=== PATIENT | male | born 1940 | race Caucasian/White ===

== ENCOUNTER → 2021-11-24 13:16 | Outpatient (BNVA) | payer MEDICARE, SELFPAY | PROVIDERS: PCP Internal Medicine; Visit Provider Physician Assistant | DX: R19.5 Other fecal abnormalities (principal); Z79.01 Long term (current) use of anticoagulants | CPT/HCPCS: 99202 ==

== ENCOUNTER 2022-01-06 07:28 | Day surgery (SDC) | payer OTHER, SELFPAY ==
[2022-01-01 10:18] VITALS: BMI 28.1
--- NOTE | 2022-01-01 13:38 | P.CONAN_ITS ---
Documented by User: Domi العراقي NP 01/05/22 11:55 HPI - Anesthesia Eval Consult details Narrative: 81yo M for Colonoscopy Routine cardiology f/u 10/2021 with increase to BP meds PMFSH Active Problems Active Problems: All Active Problems (Updated 01/01/22 @ 10:12 by Briana Thao RN) Heme positive stool (Acute) Anticoagulant long-term use (Acute) HTN (hypertension) (Acute) Past Medical History Medical History (Updated 01/01/22 @ 10:12 by Briana Thao RN) Aortic stenosis BPH (benign prostatic hyperplasia) CAD (coronary artery disease) Chronic renal insufficiency Elevated cholesterol Gout History of cardioversion HTN (hypertension) PAF (paroxysmal atrial fibrillation) Surgical History Surgical History (Updated 01/01/22 @ 10:12 by Briana Thao RN) History of open heart surgery Hx of aortic valve replacement Hx of CABG Hx of cataract extraction Hx of colonoscopy Hx of elbow surgery Social History Social History (Updated 11/24/21 @ 13:56 by Dina Gray PA-C) Household Members: Spouse Household Members Other:: - healthy Alcohol intake: current Alcohol intake frequency: a few times a month Patient Tobacco Use Status: Former Tobacco user Tobacco use type: Cigarette Advance Directives Date on File: 04/18/19 Meds Allergies Allergy/AdvReac Type Severity Reaction Status Date / Time No Known Allergies Allergy Verified 11/24/21 13:23 Home Medications Medication Instructions Recorded Confirmed Last Taken Type allopurinol 300 mg tablet 300 mg PO DAILY 11/24/21 01/01/22 Unknown History amlodipine 5 mg tablet 5 mg PO BID 11/24/21 01/01/22 Unknown History apixaban 5 mg tablet (Eliquis) 5 mg PO BID 11/24/21 01/01/22 Unknown History aspirin 81 mg chewable tablet 81 mg PO DAILY 11/24/21 01/06/22 01/03/22 History fenofibrate nanocrystallized 145 145 mg PO DAILY 11/24/21 01/01/22 Unknown Hist ory mg tablet finasteride 5 mg tablet 5 mg PO DAILY 11/24/21 01/01/22 Unknown History losartan 100 mg tablet 100 mg PO DAILY 11/24/21 01/01/22 Unknown History metoprolol succinate 50 mg 50 mg PO BID 11/24/21 01/06/22 01/06/22 History tablet,extended release 24 hr simvastatin 20 mg tablet 20 mg PO DAILY 11/24/21 01/01/22 Unknown History tamsulosin 0.4 mg capsule 0.4 mg PO DAILY 11/24/21 01/01/22 Unknown History furosemide 20 mg tablet 20 mg PO DAILY 01/01/22 01/01/22 Unknown History Exam Exam Date and Time: January 01, 2022 1338 Height,Weight and Vital Signs: Height 5 ft 11 in Weight 91.626 kg Narrative Narrative: EKG 04/2021 NSR with SA RBBB Septal infarct ECHO 07/2020 Nml LV chamber size. Mild conc LV hypertrophy. Nml regional WMA. Nml LV sys function. LV EF 55-60%. Indeterminte LV diastolic function. Nml RV size. Low normal RV global systolic function. PASP not elevated Mildly dilated LA Bioprosthetic aortic valve is well seated and functioning normally. Assessment and Plan Assessment Anesthesia Assessment: Chart Reviewed Documented by User: Jude Charles MD 01/06/22 10:22 HPI - Anesthesia Eval Consult details Narrative: 81yo M for Colonoscopy Routine cardiology f/u 10/2021 with increase to BP meds anticoagulation stopped 2 days ago , cardiology on board . [facility] Past Medical History Medical History (Updated 01/01/22 @ 10:12 by Briana Thao RN) Aortic stenosis BPH (benign prostatic hyperplasia) CAD (coronary artery disease) Chronic renal insufficiency Elevated cholesterol Gout History of cardioversion HTN (hypertension) PAF (paroxysmal atrial fibrillation) Functional capacity: independent ambulation Family History Family history of problems with anesthesia: No Surgical History Surgical History (Updated 01/01/22 @ 10:12 by Briana Thao RN) History of open heart surgery Hx of aortic valve replacement Hx of CABG Hx of cataract extraction Hx of colonoscopy Hx of elbow surgery History of Problems with Anesthesia: No Social History Social History (Updated 11/24/21 @ 13:56 by Dina Gray PA-C) Household Members: Spouse Household Members Other:: - healthy Alcohol intake: current Alcohol intake frequency: a few times a month Patient Tobacco Use Status: Former Tobacco user Tobacco use type: Cigarette Advance Directives Date on File: 04/18/19 Meds Allergies Allergy/AdvReac Type Severity Reaction Status Date / Time No Known Allergies Allergy Verified 11/24/21 13:23 Home Medications Medication Instructions Recorded Confirmed Last Taken Type allopurinol 300 mg tablet 300 mg PO DAILY 11/24/21 01/01/22 Unknown History amlodipine 5 mg tablet 5 mg PO BID 11/24/21 01/01/22 Unknown History apixaban 5 mg tablet (Eliquis) 5 mg PO BID 11/24/21 01/01/22 Unknown History aspirin 81 mg chewable tablet 81 mg PO DAILY 11/24/21 01/06/22 01/03/22 History fenofibrate nanocrystallized 145 145 mg PO DAILY 11/24/21 01/01/22 Unknown History mg tablet finasteride 5 mg tablet 5 mg PO DAILY 11/24/21 01/01/22 Unknown History losartan 100 mg tablet 100 mg PO DAILY 11/24/21 01/01/22 Unknown History metoprolol succinate 50 mg 50 mg PO BID 11/24/21 01/06/22 01/06/22 History tablet,extended release 24 hr simvastatin 20 mg tablet 20 mg PO DAILY 11/24/21 01/01/22 Unknown History tamsulosin 0.4 mg capsule 0.4 mg PO DAILY 11/24/21 01/01/22 Unknown History furosemide 20 mg tablet 20 mg PO DAILY 01/01/22 01/01/22 Unknown History Exam Airway Mallampati Class: III TM Dist: >3cm Neck ROM: Full Loose/Missing/Broken Teeth: Yes Heart: S1, S2 Lungs: b/l breath sounds Assessment and Plan Assessment Anesthesia Assessment: Anesthesia Plan Discussed Final Anesthetic Review Family History of Problems with Anesthesia: No History of Problems with Anesthesia: No NPO: Yes ASA Class: III Final Preanesthetic Review: Meds/Allgs Chart Reviewed, Consent Obtained/Reviewed and Anes Risks/Benef Reviewed Patient Risk: High Procedure Risk: Intermediate Anesthetic Plan Anesthetic Plan: MAC: Disposition: Standard PACU
--- NOTE | 2022-01-06 07:04 | MHC.SHP ---
Pre-Procedural Eval Section A Date of Service: 01/06/22 Section B Chief Complaint: Other fecal abnormalities Details of Present Illness: pos stool occult test, father with CRC? Relevant Family History (Specify if Yes): Yes Relevant Social History: None Present Medications: see Short Stay Collaborative assessment Medical History: Significant History (Aortic stenosis BPH (benign prostatic hyperplasia) CAD (coronary artery disease) Chronic renal insufficiency Elevated cholesterol Gout History of cardioversion HTN (hypertension) PAF (paroxysmal atrial fibrillation)) History of Previous Operations: Relevant previous surgery/procedure and date(s) (History of open heart surgery Hx of aortic valve replacement Hx of CABG Hx of cataract extraction Hx of colonoscopy Hx of elbow surgery) Allergies: Allergies Allergy/AdvReac Type Severity Reaction Status Date / Time No Known Allergies Allergy Verified 11/24/21 13:23 Review of Systems Sugical H&P ROS: Negative: Constitution, Cardiovascular, Respiratory, Neurological, Psychiatric, Hem-Onc, Allergic/Immunologic, Gastrointestinal, Genitourinary, Musculoskeletal, Integumentary, Endocrine and Eyes/Ears/Nose/Throat Exam Surgical H&P Exam: Normal: HEENT, Normal: Heart, Normal: Lungs, Normal: Extremities, Normal: Abdomen, Normal: Skin and Normal: Neurological Plan Diagnosis/Plan: Unchanged I have reviewed the history and physical and performed a pertinent physical examination on my patient. No changes have occurred unless specified.
[2022-01-06 07:48] VITALS: BP 162/82; PULSE 81; RESP 18; TEMP 36.1; O2SAT 98
[2022-01-06] MEDS: Lactated Ringers 1,000 ML 100 ML IVCONT (08:05)
--- NOTE | 2022-01-06 08:26 | MHC.SHP ---
Pre-Procedural Eval Section A Date of Service: 01/06/22 Section B Chief Complaint: Other fecal abnormalities Allergies: Allergies Allergy/AdvReac Type Severity Reaction Status Date / Time No Known Allergies Allergy Verified 11/24/21 13:23 Plan I have reviewed the history and physical and performed a pertinent physical examination on my patient. No changes have occurred unless specified.
--- NOTE | 2022-01-06 08:27 | P.OP_ITS ---
Operative Note Operative Note Date of Service: 01/06/22 Narrative: Operative Information Procedure Description: Colonoscopy Indication: pos stool occult test Anesthesia: MAC COLONOSCOPY Instrument: Olympus variable stiffness pediatric scope 190L Colonoscopy Monitoring: Vital signs and clinical assessment, continuous EKG monitoring, Pulse oximetry, Carbon Dioxide monitoring and blood pressure monitoring were done throughout the procedure. Colon withdrawal time was 11 minutes. Procedure: The patient was placed in the left lateral decubitis position and pre-procedure medications were administered. After a digital rectal examination of the ano-rectum, the video colonoscope was inserted into the rectum and advanced through the colon to the cecum/TI. The colonoscope was slowly withdrawn in a retrograde panoramic fashion and the colon mucosa was carefully examined including a retroflexed view of the rectum. Findings and interventions are described below. Procedure Difficulty: easy Findings: Terminal Ileum-normal Cecum:normal right sided retroflexion --normal Ascending Colon: normal Transverse Colon - 5-6 mm sessile polyp removed with cold forceps Descending Colon:normal Sigmoid Colon: many large mouthed tics noted, consistent with severe diverticulosis with narrowing of lumen and hypertrophic folds. 10-12 mm sessile polyp removed with cold snare Rectum: Retroflexion with small internal hemorrhoids, grade I Anorectum - normal Colon preparation: [place] Bowel Preparation Scale Right colon; 2 Transverse colon: 2 Left colon; 2 (0 = Unprepared colon segment with mucosa not seen due to solid stool that cannot be cleared. 1 = Portion of mucosa of the colon segment seen, but other areas of the colon segment not well seen due to staining, residual stool and/or opaque liquid. 2 = Minor amount of residual staining, small fragments of stool and/or opaque liquid, but mucosa of colon segment seen well. 3 = Entire mucosa of colon segment seen well with no residual staining, small fragments of stool or opaque liquid) Impression and Post Procedure Diagnosis: polyps internal hemorrhoids diverticular disease Plan: High fiber diet leaflet Avoid straining at stool, epsom salts and sitz bath, anusol supps or cream Repeat Colonoscopy in 3-5 years if health allows or earlier if clinically indicated can restart anticoagulation tomorrow evening Above findings were reviewed with the patient and relevant handouts were provided if indicated.
--- NOTE | 2022-01-06 08:27 | PM.OP ---
Brief Operative Note Date of Service: 01/06/22 Pre-op diagnosis: pos stool occult test Post-op diagnosis: same Procedure: see op note Surgeon: Consuelo De Leon MD Anesthesia: MAC Was an Grounds Maintenance Supervisor used for this Procedure?: No Estimated blood loss (mL): 0 Condition: stable Disposition: PACU
[2022-01-06 09:02] VITALS: BP 106/60; PULSE 65; RESP 16; TEMP 36.1; O2SAT 97
[2022-01-06 09:17] VITALS: BP 126/75; PULSE 71; RESP 16; O2SAT 96
== END 2022-01-06 09:55 | disposition home or self-care (01) ==
PROVIDERS: PCP Internal Medicine; Visit Provider Internal Medicine Gastroenterology
PROC: 0DJD8ZZ Inspection of Lower Intestinal Tract, Via Natural or Artificial Opening Endoscopic (ICD-10-PCS; CPT 45378; principal; 2022-01-06 08:30)
DX: R19.5 Other fecal abnormalities (principal); D12.3 Benign neoplasm of transverse colon; D12.5 Benign neoplasm of sigmoid colon; K57.30 Diverticulosis of large intestine without perforation or abscess without bleeding; K64.0 First degree hemorrhoids; E78.00 Pure hypercholesterolemia, unspecified; M10.9 Gout, unspecified; I25.10 Atherosclerotic heart disease of native coronary artery without angina pectoris; Z95.1 Presence of aortocoronary bypass graft; Z95.2 Presence of prosthetic heart valve; I12.9 Hypertensive chronic kidney disease with stage 1 through stage 4 chronic kidney disease, or unspecified chronic kidney disease; N18.9 Chronic kidney disease, unspecified; I48.0 Paroxysmal atrial fibrillation; Z79.01 Long term (current) use of anticoagulants; Z79.82 Long term (current) use of aspirin; Z79.899 Other long term (current) drug therapy; Z87.891 Personal history of nicotine dependence; Z98.890 Other specified postprocedural states
CPT/HCPCS: 45385; 45380; 88305

== ENCOUNTER → 2022-01-19 11:28 | Outpatient (BNVA) | payer OTHER, SELFPAY | PROVIDERS: PCP Internal Medicine; Referring Provider Internal Medicine; Visit Provider Physician Assistant | DX: Z13.89 Encounter for screening for other disorder (principal) ==

== ENCOUNTER 2022-06-11 10:36 | Outpatient (REF) | payer MEDICARE, SELFPAY ==
--- NOTE | ~2022-06-11 | XR_ITS ---
EXAMINATION: XR CERVICAL SPINE XR LUMBAR SPINE CLINICAL INFORMATION: Neck pain. COMPARISON: None. TECHNIQUE: 3 views lumbar spine. 3 views cervical spine. FINDINGS: Cervical Spine: There is maintained cervical lordosis. The vertebral heights, alignment and disc heights are maintained normal. There is mild ventral spondylosis C4-C5, C5-C6 and C6-C7 disc levels. No visible acute fracture, dislocation or subluxation seen. There is bilateral C4-C5 facet joint arthropathy and hypertrophy. No visible acute fracture, dislocation or subluxation seen. The craniovertebral junction at the C2-C3 disc level appears unremarkable. Lumbar Spine: Abnormal segmentation of lumbar spine seen with sacralization of L5 vertebra and rudimentary disc at L5-S1 disc level. There is normal lumbar lordosis. The vertebral heights and alignment is normal. There is mild loss of L5-S1, L4-L5 and L1-L2 disc heights with ventral spondylosis seen throughout lumbar spine. No aggressive lytic or sclerotic process seen. No compression fracture. Paravertebral soft tissues are normal. SI joints are symmetrical and normal. XR/XR lumbar spine 4V min IMPRESSION: Degenerative disc changes L2-L3, L4-L5 and L5-S1 disc levels. There is bilateral L5-S1 and L4-L5 facet joint arthropathy. There is mild narrowing of L5-S1 disc height. Mild ventral spondylosis C3-C4 through C6-C7 disc levels. No visible acute fracture or dislocation seen.
--- NOTE | ~2022-06-11 | XR_ITS ---
EXAMINATION: XR CERVICAL SPINE XR LUMBAR SPINE CLINICAL INFORMATION: Neck pain. COMPARISON: None. TECHNIQUE: 3 views lumbar spine. 3 views cervical spine. FINDINGS: Cervical Spine: There is maintained cervical lordosis. The vertebral heights, alignment and disc heights are maintained normal. There is mild ventral spondylosis C4-C5, C5-C6 and C6-C7 disc levels. No visible acute fracture, dislocation or subluxation seen. There is bilateral C4-C5 facet joint arthropathy and hypertrophy. No visible acute fracture, dislocation or subluxation seen. The craniovertebral junction at the C2-C3 disc level appears unremarkable. Lumbar Spine: Abnormal segmentation of lumbar spine seen with sacralization of L5 vertebra and rudimentary disc at L5-S1 disc level. There is normal lumbar lordosis. The vertebral heights and alignment is normal. There is mild loss of L5-S1, L4-L5 and L1-L2 disc heights with ventral spondylosis seen throughout lumbar spine. No aggressive lytic or sclerotic process seen. No compression fracture. Paravertebral soft tissues are normal. SI joints are symmetrical and normal. XR/XR cervical spine 3V IMPRESSION: Degenerative disc changes L2-L3, L4-L5 and L5-S1 disc levels. There is bilateral L5-S1 and L4-L5 facet joint arthropathy. There is mild narrowing of L5-S1 disc height. Mild ventral spondylosis C3-C4 through C6-C7 disc levels. No visible acute fracture or dislocation seen.
== END 2022-06-11 10:37 | disposition home or self-care (01) ==
LOC: HO.HMGCX 10:36
PROVIDERS: PCP Internal Medicine; Visit Provider Internal Medicine
DX: M54.2 Cervicalgia (principal); M54.50 Low back pain, unspecified
CPT/HCPCS: 72040; 72110

== ENCOUNTER 2024-06-27 14:27 | Outpatient (REF) | payer MEDICARE, SELFPAY ==
--- NOTE | ~2024-06-27 | XR_ITS ---
EXAMINATION: XR HIP, LEFT CLINICAL INFORMATION: LEFT HIP PAIN COMPARISON: CT abdomen and pelvis April 18, 2019 TECHNIQUE: Two views of the left hip. FINDINGS: No fracture. No dislocation. Mild to moderate degenerative joint narrowing and small marginal bone spurs of the superolateral acetabular rim. There is bony ankylosis of the symphysis pubis . No significant change since CAT scan April 18, 2019. XR/XR hip LT min 2V IMPRESSION: 1. No acute abnormality. 2. 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 3. Bony ankylosis of the symphysis pubis. Electronically signed by: Deon Forbes MD 07/26/2024 04:10 PM EST
== END 2024-06-27 14:28 | disposition home or self-care (01) ==
LOC: HO.HMGCX 14:27
PROVIDERS: PCP Internal Medicine; Visit Provider Internal Medicine
DX: M25.552 Pain in left hip (principal)
CPT/HCPCS: 73502

== ENCOUNTER 2024-08-20 12:09 | Outpatient (REF) | payer MEDICARE, SELFPAY ==
--- NOTE | ~2024-08-20 | MR_ITS ---
EXAMINATION: MR HIP WITHOUT CONTRAST, LEFT CLINICAL INFORMATION: Pain, rule out fracture, DJD. Pain in low back/buttock, down to left leg for months. COMPARISON: XR left hip 06/27/2024. TECHNIQUE: MRI of the left hip was obtained using routine sequences on a high-field magnet. FINDINGS: Mild-moderate bilateral hip osteoarthritis. 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 There is a small left hip joint effusion. Small marginal osteophytes along the acetabular rim. Much of the labrum is degenerated and attenuated. No acute fracture, stress reaction, or evidence of active osteonecrosis. No suspicious bone lesion. The pubic symphysis is fused. No acute muscle strain or tear. Trace trochanteric bursitis. The urinary bladder is thick-walled and trabeculated and there is an enlarged prostate suggesting chronic bladder outlet obstruction. There is mild edema surrounding the urinary bladder suggesting cystitis. Correlate clinically and/or with urinalysis. MR/MR hip LT wo con IMPRESSION: Mild-moderate bilateral hip osteoarthritis. Subtle flattening along the articular surface of the superomedial left femoral head which may be due to a remote/healed injury/AVN. No acute osseous abnormality. Enlarged prostate. Findings suggestive of chronic bladder outlet obstruction and possible active cystitis. Electronically signed by: Salvador Villafuerte MD 08/24/2024 03:23 PM EDI ROWLEY
--- OUTSIDE RECORDS SUMMARY | 2024-08-20 12:11 | XMS_ITS | Continuity of Care Document ---
Author Name [facility] Organization [facility] Care Team Providers Care Alberene Stone Setter Name Role Phone [facility] Unavailable Unavailable Problems Combined list of problems from Department of Defense and Veterans Affairs facilities. It does not include entries that were removed or entered in error. Problem Status Onset Date Problem Type Date of Resolution Comments Source H/O: Bilateral cataract extraction Active 09/06/19 12 Condition [facility] Aortic stenosis Active Condition Sep 15, 2018 Entered By: Alexandra MARIE Comment: 09/14/18 moderate to severe aortic valve stenosis mean systolic gradiant 35 mm HG [facility] Atrial fibrillation Active Condition [facility] Benign essential hypertension Active Condition [facility] Benign prostatic hyperplasia Active Condition May 15, 2015 Entered By: Alexandra MARIE Comment: following Dr. Perez 2014 Entered By: Alexandra MARIE Comment: failed flomax in past [facility] Chronic kidney disease Active Condition [facility] Colonoscopy normal Active Condition N 2018 Entered By: Alexandra MARIE Comment: 10/17/12 Dr. Lester due 2021 Entered By: Alexandra MARIE Comment: January REPEAT: 3 Years polyps internal hemorrhoidsMa2021 Entered By: Alexandra MARIE Comment: diverticular disease [facility] : Consuelo De Leon MD [facility] Cough Active Condition [facility] Diverticulosis Active Condition [facility] Electrocardiogram abnormal Active Condition Jul 22, 2016 Entered By: Alexandra MARIE Comment: 06/21 echo: aortic stenosis repeat 2-3 yearsNov 2018 Entered By: Alexandra MARIE Comment: stress test 04/28/19 Moderate dyspnea, patient w severe , good exercise toleranceNov 2018 Entered By: Alexandra MARIE Comment: echo 03/24 severe ASNov 2019 Entered By: Alexandra MARIE Comment: Aortic Valve replacment 11/2019Dec 2019 Entered By: Alexandra MARIE Comment: echo 07/31/20 see note 08/08/20 [facility] Exposure to potentially hazardous substance Active Condition [facility] Gout Active Condition [facility] Hemorrhoids Active Condition [facility] Hyperlipidemia Active Condition [facility] outside providers Active Condition Se p 2014 Entered By: Alexandra MARIE Comment: PCP: Dr. Collado [facility] Pain of right shoulder joint Active Condition [facility] Posttraumatic stress disorder Active Condition [facility] Prediabetes Active Condition [facility] Diagnosis: ICD-10-CM I48.91 Unspecified atrial fibrillation Active Diagnosis SILVIA GARCIA Diagnosis: ICD-10-CM Z46.1 Encounter for fitting and adjustment of hearing aid Active Diagnosis [facility] Medications Combined list of outpatient medications from Department of Defense and Veterans Affairs facilities.Medications provided include 1) outpatient medications from the last 15 months, and 2) patient-reported medications. Medication Details Route Status Patient Instructions Prescription Expires Prescription Number Last Dispense Date Ordering Provider Order Date Order Qty Source ALLOPURINOL 300MG TAB TAKE ONE TABLET BY MOUTH DAILY ORAL ACTIVE HAKEEM YOUNG 2014 [facility] IELD AMLODIPINE BESYLATE 5MG TAB TAKE ONE TABLET BY MOUTH ONCE DAILY ORAL ACTIVE [place] 2021 [facility] [place] APIXABAN 5MG TAB TAKE ONE TABLET BY MOUTH TWICE DAILY ORAL ACTIVE [place]KEEM [place] 2020 [facility] ASPIRIN 81MG TAB,EC TAKE ONE TABLET BY MOUTH DAILY ORAL ACTIVE KISHA-GR NATALIA,CYN [place] 2014 [facility] IELD FENOFIBRATE 145MG TAB TAKE ONE TABLET BY MOUTH ONCE DAILY ORAL ACTIVE KISHA-GR NATALIA,[place] 2018 [facility] IELD FINASTERIDE 5MG TAB TAKE ONE TABLET BY MOUTH ONCE DAILY ORAL ACTIVE KISHA-GR NATALIA,[facility] [place] 2019 [facility] IELD [place]AN POTASSIUM 100MG TAB TAKE ONE TABLET BY MOUTH DAILY ORAL ACTIVE KISHA-GR NATALIA,[facility] IA 2014 [facility] IELD METOPROLOL TARTRATE 50MG TAB TAKE ONE TABLET BY MOUTH TWICE DAILY ORAL ACTIVE KISHA-GR NATALIA,[facility] [place] [facility] PSYLLIUM PWDR,ORAL TAKE 1 TEASPOON FUL BY MOUTH ONCE DAILY ORAL ACTIVE KISHA-GR NATALIA,[facility] [place] 2017 [facility] IELD SIMVASTATIN 40MG TAB TAKE ONE-HALF TABLET BY MOUTH AT BEDTIME ORAL ACTIVE KISHA-GR NATALIA,[facility] [place] 2021 [facility] IELD TAMSULOSIN HCL 0.4MG CAP TAKE 1 CAPSULE BY MOUTH ONCE DAILY ORAL ACTIVE KISHA-CJ GARDNERY,[facility] [place] 2017 [facility] [place] Immunizations Combined list of available immunizations from the Department of Defense and Veterans Affairs facilities. Immunization Series Date Given Administered By Site Reaction Lot Number CVX Code Drug Propeller Engineer Status Comments Source INFLUENZA, UNSPECIFIED FORMULATION 2022 88 complet ed [facility] INFLUENZA VACCINE, QUADRIVALENT, ADJUVANTED 2021 JAIMEE MCGOVERN LEFT DELTO ID [id number] 205 complet ed [facility] [place] INFLUENZA, UNSPECIFIED FORMULATION 2020 88 complet ed [facility] COVID-19 ([employer]), MRNA, LNP-S, PF, 30 MCG/0.3 ML DOSE 3 2020 208 complet ed [facility] ZOSTER RECOMBINANT 2 2020 187 complet ed [facility] [place] COVID-19 (P[employer]ZER), MRNA, LNP-S, PF, 30 MCG/0.3 ML DOSE 1 2020 208 complet ed [facility] COVID-19 (PFIZER), MRNA, LNP-S, PF, 30 MCG/0.3 ML DOSE 2 2020 208 complet ed [facility] ZOSTER RECOMBINANT 1 2019 187 complet ed [place] INFLUENZA, UNSPECIFIED FORMULATION 2019 88 complet ed [facility] INFLUENZA, SEASONAL, INJECTABLE 2018 141 complet ed outside pcp [facility] INFLUENZA, INJECTABLE, QUADRIVALENT 2017 158 complet ed Site: Right Deltoid [place] INFLUENZA, SEASONAL, INJECTABLE 2016 141 complet ed Site: Left Deltoid [place] PNEUMOCOCCAL POLYSACCHARID E PPV23 2016 33 complet ed [place] FLU,3 YRS (HISTORICAL) 2015 88 complet ed Site: Left Deltoid [place] PNEUMOCOCCAL CONJUGATE PCV 13 2014 133 complet ed [place] DTAP, UNSPECIFIED FORMULATION 2014 107 complet ed [place] FLU,3 YRS (HISTORICAL) 2014 88 complet ed [place] ZOSTER (SHINGLES) (HISTORICAL) 2014 121 complet ed Proximal Right Arm [place] Vital Signs Combined list of inpatient and outpatient Vital Signs from Department of Defense and Veterans Affairs, ranging from 12 months to all on record, depending upon the facility. Vital Sign Value Date Comments Source SYSTOLIC BLOOD PRESSURE 135 09/08/2023 13:15:44 [facility] DIASTOLIC BLOOD PRESSURE 75 09/08/2023 13:15:44 [facility] PULSE OXIMETRY 97% 09/08/2023 13:15:44 [place] WEIGHT 208.6 09/08/2023 13:15:44 [place] BMI 29kg/m2 09/08/2023 13:15:44 [place] TEMPERATURE 97 09/08/2023 13:15:44 [place] PULSE 77 09/08/2023 13:15:44 [place] Encounters Combined list of: 1) Encounters from Department of Veterans Affairs facilities going back up to thelast 18 months. 2) Encounters from the Department of Defense facilities going back up to 280 months. Location Location Details Encounter Type Encounter Number Reason For Visit Attending Provider ADM Date DC Date Status Disposition Source [facility] HEARING SERVICE [id number] Diagnos is: ICD-10- CM Z46.1 Encount er for fitting and adjustm ent of hearing aid<br/ > Alexandra NAVAS 02/23 [facility] HEARING AID CHECK BOTH EARS [id number] Diagnos is: ICD-10- CM Z46.1 Encount er for fitting and adjustm ent of hearing aid<br/ > SAVANAJUANROMAN ZHANG SOPHIA 05/25 [facility] Outpatient Encounter [id number] 06/06 [facility] HEARING SERVICE [id number] Diagnos is: ICD-10- CM Z46.1 Encount er for fitting and adjustm ent of hearing aid<br/ > YOSEF KEARNEY 06/18 [facility] Outpatient Encounter [id number] 09/08 [facility] OFFICE O/P [place] HI 40 MIN [id number] Diagnos is: ICD-10- CM I48.91 Unspeci fied atrial fibrill ation<b r/> YOOMEDINA SEAMAN J 09/08 [place] [facility] Outpatient Encounter [id number] 09/08 [facility] Outpatient Encounter [id number] 09/08 [facility] Outpatient Encounter [id number] 09/10 [facility] Outpatient Encounter [id number] 07/25 [facility] Social History Combined list of available smoking, tobacco, and other social history from Department of Defense and Veterans Affairs facilities. Social History Type Response Date Comment Sour e Tobacco smoking status NHIS VA-TOBACCO FORMER USER 09/08/2023 [facility] History of tobacco use VA-TOBACCO QUIT 15 YRS OR MORE 09/08/2023 [facility] History of tobacco use VA-TOBACCO QUIT 15 YRS OR MORE 08/25/2022 [facility] History of tobacco use VA-TOBACCO FORMER USER 08/22/2021 [facility] History of tobacco use VA-TOBACCO FORMER USER 08/02/2020 [facility] History of tobacco use VA-TOBACCO FORMER USER 07/05/2018 [facility] History of tobacco use QUIT TOBACCO USE > 7 YEARS AGO 07/01/2017 [facility] Plan of Care List of future care activities from Department of Veterans Affairs facilities. Additional future care activities may be listed in the Assessment and Plan section. Date/Time Care Activity Care Activity Detail Facili ty 09/14/2024 AMBULATORY - MEDICINE AMBULATORY - MEDICI NE [facility]
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
--- OUTSIDE RECORDS SUMMARY | 2024-08-20 12:11 | XMS_ITS | Encounter Summary ---
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 Name Role Phone TRAY KEMP Primary Care Provider [facility] alex Insurance Providers: All historical and current [...] Patient's Relationship to Policy Cohen HUMAIRA BCBS [facility] MEDICARE SUPPLEMEN DMITRY PSUED O MEDEX BRONZ E Feb 05, 2008 [id number] [phone] ANDREW PENDLETON JR PATIENT BCBS [place] MEDICARE SUPPLEMEN DMITRY MEDEX BRONZ E Feb 05, 2008 [id number] ANDREW PENDLETON JR PATIENT MEDICARE (WNR) MEDICARE (M) PART B Dec 06, 2007 PART B [id number] ANDREW PENDLETON JR PATIENT MEDICARE (WNR) MEDICARE (M) PART B Dec 06, 2007 PART B [id number] Vandana PENDLETON PATIENT MEDICARE (WNR) MEDICARE (M) PART A Apr 06, 2007 PART A [id number] ANDREW PENDLETON JR PATIENT MEDICARE (WNR) MEDICARE (M) PART A Apr 06, 2007 PART A [id number] ANDREW PENDLETON JR PATIENT Selected Encounter This section includes the information on record at [place] for the Encounter. Date/Time Encounter Type Encounter Description Reason Pro vider Source Sep 08, 2023 01:20 PM Outpatient Encounter PRIMARY CARE/MEDICINE IHE Encounter Template Text not used by [place] Social History: Smoking Status (Most current) and Tobacco Use (All prior to encounter date) This section includes the most current, and the historical, smoking and tobacco- related health factors from the [place] facility where the Encounter took place. Current Smoking Status This section includes the most current smoking, or tobacco-related health factor, from the [place] facility where the Encounter took place. Date/Time Current Smoking Status Comment David dykes Sep 08, 2023 01:20 PM [facility] Tobacco Use History This section includes a history of the smoking, or tobacco-related health factors, that were collected on or before the date of the Encounter. The data comes from the [place] facility where the Encounter took place. Date/Time Smoking Status/Tobacco Use Comment F acility Sep 08, 2023 01:20 PM VA-TOBACCO QUIT 15 YRS OR MORE [place] [facility] [place] [facility] Aug 22, 2021 01:32 PM VA-TOBACCO FORMER USER [place] [facility] [place] [facility] Aug 22, 2021 01:32 PM VA-TOBACCO QUIT 15 YRS OR MORE [place] [facility] [place] [facility] Aug 02, 2020 12:06 PM VA-TOBACCO FORMER USER [place] [facility] [place] [facility] Aug 02, 2020 12:06 PM VA-TOBACCO QUIT 5 TO < 15 YRS [place] [facility] [place] [facility] Encounter Notes: All associated encounter notes This section contains the clinical notes associated to the Encounter. Date/Time Encounter Note(s) Provider Source Sep 08, 2023 01:20 PM PREVENTIVE MEDICIN E NURSING NOTE: LOCAL TITLE: CLINICAL REMINDERS/NURSING STANDARD TITLE: PREVENTIVE MEDICINE NURSING NOTE DATE OF NOTE: SEP 08, 2023@13:20 ENTRY DATE: SEP 08, 2023@13:20:53 AUTHOR: TRICIA MORENO COSIGNER: URGENCY: STATUS: COMPLETED CLINICAL REMINDERS/NURSING Has ADDENDA Advance Directive Screen MH AD: The patient has an Advance Directive on file at another [facility] that may require updating with the assistance of Social Work Service. A consult to Social Work Service has been entered. (See Orders) The patient received education about Advance Directives and written notification of his/her rights. Comment: per patient Suicide Screen: C-SSRS Screening [place] Suicide Severity Rating Scale (C-SSRS) screener 1. Over the past month, have you wished you were or wished you could go to sleep and not wake up? No 2. Over the past month, have you had any actual thoughts of killing yourself? No 3. Over the past month, have you been thinking about how you might do this? Response not required due to responses to other questions. 4. Over the past month, have you had these thoughts and had some intention of acting on them? Response not required due to responses to other questions. 5. Over the past month, have you started to work out or worked out the details of how to kill yourself? Response not required due to responses to other questions. 6. If yes, at any time in the past month did you intend to carry out this plan? Response not required due to responses to other questions. 7. In your lifetime, have you ever done anything, started to do anything, or prepared to do anything to end your life (for example, collected pills, obtained a gun, gave away valuables, went to the roof but didn't jump)? No 8. If YES, was this within the past 3 months? Response not required due to responses to other questions. Homelessness/Food Insecurity Screen: In the past 2 months, have you been living in stable housing that you own, rent, or stay in as part of a household? Yes - Living in stable housing. Are you worried or concerned that in the next 2 months you may NOT have stable housing that you own, rent, or stay in as part of a household? No - Not worried about housing near future The reports the following: Within the past 12 months, you worried whether your food would run out before you got money to buy more. Never true Within the past 12 months, the food you bought just didn't last and you didn't have money to get more. Never true Diagnostic Colonoscopy: (+) FIT/FOBT identified. A diagnostic Colonoscopy is due based on information available to this reminder. Colonoscopy consult has been ordered. See orders tab for details. Depression Screening: Perform PHQ-2 A PHQ-2 screen was performed. The score was 0 which is a negative screen for depression. Over the past two weeks, how often have you been bothered by the following problems? 1. Little interest or pleasure in doing things Not at all 2. Feeling down, depressed, or hopeless Not at all Falls & Incontinence Screen: Falls Screen: During the past 12 months, did the patient report any falls? 4. No falls within the past year. Incontinence Screen: During the past 12 months, has the patient has any characteristics of incontinence (ability, voiding, leakage, etc.)? No incontinence. PTSD Screening: PC-PTSD-5 A PTSD screening test (PC-PTSD-5) was negative (score=0). IN THE PAST MONTH, have you ever had any experience that was so frightening, horrible or traumatic. For example: A serious accident or fire a physical or sexual assault or abuse An earthquake or flood A war Seeing someone be killed or seriously injured Having a loved one through homicide or suicide 1. Have you ever experienced this kind of event? YES 2. Had nightmares about the event(s) or thought about the event(s) when you did not want to? NO 3. Tried hard not to think about the event(s) or went out of your way to avoid situations that reminded you of the event(s)? NO 4. Been constantly on guard, watchful, or easily startled? NO 5. [place] numb or detached from people, activities, or your surroundings? NO 6. [place] guilty or unable to stop blaming yourself or others for the event(s) or any problems the event(s) may have caused? NO Tobacco Use Screening: The patient is a former tobacco user. The patient quit fifteen or more years ago. Influenza Immunization: The patient has received the seasonal influenza vaccine for the current season at another location. Documented: INFLUENZA, UNSPECIFIED FORMULATION Historical Date Administered: Jun 2023 Exact date unknown Outside Location: Outside Healthcare Provider Information Source: FROM PATIENT'S RECALL Alcohol Use Screen (AUDIT-C): Alcohol Screen: SCREEN FOR ALCOHOL (AUDIT-C) An alcohol screening test (AUDIT-C) was negative (score=4). 1. How often did you have a drink containing alcohol in the past year? Consider a drink to be a 12 ounce can or bottle of regular beer, 8 ounces of malt liquor, a 5 ounce glass of table wine, or a 1.5 ounce shot of liquor (like scotch, gin, or vodka). Four or more times a week 2. How many drinks containing alcohol did you have on a typical day when you were drinking in the past year? One or two drinks 3. How often did you have six or more drinks on one occasion in the past year? Never COVID-19 Immunization: Patient educated on the need for receiving COVID-19 (SARS-CoV-2) immunization either at [facility] or outside facility. Comment: patient will schedule when ready Sexual Orientation: The patient thinks of their sexual orientation as: Straight or Heterosexual /benjamin MORENO LPN LPN Signed: 09/08/2023 13:26 09/10/2023 ADDENDUM STATUS: COMPLETED Follow Up Colonoscopy: Colonoscopy is due based on information available to this reminder. Prior/outside Colonoscopy results: 2 polyps Date: Jan, 2022 ? Exact date is unknown Colonoscopy reminder set 3 years from SEP 10, 2023. Comments (optional): Colonoscopy completed 01/06/2022 /benjamin MORENO LPN LPN Signed: 09/10/2023 08:35 TRICIA MORENO ODON
--- OUTSIDE RECORDS SUMMARY | 2024-08-20 12:12 | XMS_ITS ---
Author Name [facility] [place] Address [address] [place] [id number] Care Team Providers Care Assembler Clip On Sunglasses Name Role Phone TRAY KEMP Primary Care Provider [facility] alex Insurance Providers: All historical and [...] Patient's Relationship to Policy Cohen HUMAIRA BCBS [facility] MEDICARE SUPPLEMEN DMITRY PSUED O MEDEX BRONZ E Feb 05, 2008 [id number] ANDREW PENDLETON JR PATIENT BCBS [place] MEDICARE SUPPLEMEN DMITRY MEDEX BRONZ E Feb 05, 2008 [id number] ANDREW PENDLETON JR PATIENT MEDICARE (WNR) MEDICARE (M) PART B Dec 06, 2007 PART B [id number] ANDREW PENDLETON JR PATIENT MEDICARE (WNR) MEDICARE (M) PART B Dec 06, 2007 PART B [id number] [phone] Vandana PENDLETON PATIENT MEDICARE (WNR) MEDICARE (M) PART A Apr 06, 2007 PART A [id number] [phone] ANDREW PENDLETON JR PATIENT MEDICARE (WNR) MEDICARE (M) PART A Apr 06, 2007 PART A [id number] [phone] ANDREW PENDLETON JR PATIENT Selected Encounter This section includes the information on record at [place] for the Encounter. Date/Time Encounter Type Encounter Description Reason Pro vider Source Sep 08, 2023 01:54 PM Outpatient Encounter PRIMARY CARE/MEDICINE IHE Encounter Template Text not used by [place] Social History: Smoking Status (Most current) and Tobacco Use (All prior to encounter date) This section includes the most current, and the historical, smoking and tobacco- related health factors from the [place] facility where the Encounter took place. Current Smoking Status This section includes the most current smoking, or tobacco-related health factor, from the [place] facility where the Encounter took place. Date/Time Current Smoking Status Comment David dykes Sep 08, 2023 01:20 PM [facility]CO [facility] Tobacco Use History This section includes a history of the smoking, or tobacco-related health factors, that were collected on or before the date of the Encounter. The data comes from the [place] facility where the Encounter took place. Date/Time Smoking Status/Tobacco Use Comment F acjosy Sep 08, 2023 01:20 PM VA-TOBACCO QUIT 15 YRS OR MORE [place] [facility] [place] [facility] Aug 22, 2021 01:32 PM VA-TOBACCO FORMER USER [place] [facility] [place] [facility] Aug 22, 2021 01:32 PM VA-TOBACCO QUIT 15 YRS OR MORE [place] [facility] [place] [facility] Aug 02, 2020 12:06 PM VA-TOBACCO FORMER USER [place] [facility] [place] [facility] Aug 02, 2020 12:06 PM VA-TOBACCO QUIT 5 TO < 15 YRS [place] [facility] [place] [facility] Encounter Notes: All associated encounter notes This section contains the clinical notes associated to the Encounter. 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 Printed information was offered and provided if desired. No questions at this time /caregiver was informed of local points of contact. Contact information for local resources: Benefits/Claim for Disability Compensation Questions:National VBA [place] Healthcare Enrollment: [facility] Eligibility direct dialed at [phone] Registry: [facility] Health Coordinator ext [phone] Toxic Exposure Screening Follow-Up reminder is needed. Name of person notified: Dr. Amber Aguirre /kellee/ TRICIA MORENO LPN LPN Signed: 09/08/2023 13:55 TRICIA MORENO MCALISTER
--- OUTSIDE RECORDS SUMMARY | 2024-08-20 12:12 | XMS_ITS | Encounter Summary ---
Author Name [facility] [place] Organization [facility] Address [address] [place] [address] Care Team Providers Care Outpatient Program Coordinator Name Role Phone TRAY KEMP [facility] alex Insurance Providers: All historical and current [...] Patient's Relationship to Policy Cohen HUMAIRA BCBS [facility] MEDICARE SUPPLEMEN DMITRY PSUED O MEDEX BRON E Feb 05, 2008 [id number] ANDREW PENDLETON JR PATIENT [place] MED[place]ARE SUPPLEMEN DMITRY MEDEX BRONZ E Feb 05, 2008 [id number] [phone] ANDREW PENDLETON JR PATIENT MEDICARE (WNR) MEDICARE (M) PART B Dec 06, 2007 PART B [id number] [phone] ANDREW PENDLETON JR PATIENT MEDICARE (WNR) MEDICARE (M) PART B Dec 06, 2007 PART B [id number] Vandana PENDLETON PATIENT MEDICARE (WNR) MEDICARE (M) PART A Apr 06, 2007 PART A [id number] [id number] KEERTHI JRTANIKAAlex PORRAS PATIENT MEDICARE (WNR) MEDICARE (M) PART A Apr 06, 2007 PART A [id number] KEERTHI ANDREW PATIENT Selected Encounter This section includes the information on record at [place] for the Encounter. Date/Time Encounter Type Encounter Description Reason Pro vider Source Jul 25, 2024 11:22 AM Outpatient Encounter ADMIN PAT ACTIVTIES (MASNONCT) IHE Encounter Template Text not used by [place] Plan of Treatment: Future Appointments (+ 6 months) and Future Tests (+/- 45 days) The Plan of Treatment section includes future care activities for the patient from all [place] treatmentfacilities. This section includes future appointments and future orders which are active, pending or scheduled. Future Appointments This section includes appointments that were scheduled to occur 6 months from the date of the Encounter, up to a maximum of 20 appointments. The data comes from all [place] treatment facilities. Appointment Date/Time Appointment Type Appointme nt Facility Name Sep 14, 2024 01:00 PM AMBULATORY - MEDICINE [facility] Social History: Smoking Status (Most current) and Tobacco Use (All prior to encounter date) This section includes the most current, and the historical, smoking and tobacco- related health factors from the [place] facility where the Encounter took place. Current Smoking Status This section includes the most current smoking, or tobacco-related health factor, from the [place] facility where the Encounter took place. Date/Time Current Smoking Status Comment Facil ity Sep 08, 2023 01:20 PM [facility] Tobacco Use History This section includes a history of the smoking, or tobacco-related health factors, that were collected on or before the date of the Encounter. The data comes from the [place] facility where the Encounter took place. Date/Time Smoking Status/Tobacco Use Comment F acility Sep 08, 2023 01:20 PM VA-TOBACCO QUIT 15 YRS OR MORE [place] [facility] [place] [facility] Aug 22, 2021 01:32 PM VA-TOBACCO FORMER USER [place] [facility] [place] [facility] Aug 22, 2021 01:32 PM VA-TOBACCO QUIT 15 YRS OR [facility] [place] [facility] Aug 02, 2020 12:06 PM VA-TOBACCO FORMER USER [place] [facility] [place] [facility] Aug 02, 2020 12:06 PM VA-TOBACCO QUIT 5 TO < 15 YRS [place] [facility] [place] [facility] Encounter Notes: All associated encounter notes This section contains the clinical notes associated to the Encounter. Date/Time Encounter Note(s) Provider Source Jul 26, 2024 10:54 AM ADDENDUM: LOCAL TITLE: Addendum STANDARD TITLE: ADDENDUM DATE OF NOTE: JUL 26, 2024@10:54:41 ENTRY DATE: JUL 26, 2024@10:54:42 AUTHOR: JHON LANDEROS EXP COSIGNER: URGENCY: STATUS: COMPLETED Verified with pharmacy, prescription and clinic notes From [facility] have not been faxed at this time. MSA: Please request prescription and clinic notes from: [facility] Dr. Ferrara [phone] Thank you. /kellee/ JHON LANDEROS REGISTERED NURSE Signed: 07/26/2024 11:03 Receipt Acknowledged By: 07/26/2024 12:35 /es/ OLGA LIDIA MARKS [employer]VANCE [employer] CAPTAIN === --- Original Document --- 07/25/24 CCC: SCHEDULING ADMINISTRATION: Patient Demographics Patient Name: CHE PENDLETON Patient Primary Phone: [phone] Patient Primary Address: [place] [address] Patient : 1940 Patient Age: 84 Caller/Recipient Relation to Patient: Self Administrative Administrative Note Reason: Outside Care Performed Administrative Note Comments: states local loading rack supervisor prescribed Eliquis and this is expensive at local pharmacy, is inquiring if he can have this through the [place] pharmacy. Local loading rack supervisor is Dr. Ferrara at [facility], phone: [phone]. [place] will ask local office to fax notes and prescription to clinic for review/consideration. [place] can be reached at IMPORTANT: This note was created by [facility] Clinical Contact Center staff. Please do not alert the staff member by adding them as a signer for future communications. Alerts are not monitored by this user. /kellee/ JE QU[place] 1 [facility] AMSA Signed: 07/25/2024 11:23 Receipt Acknowledged By: 07/26/2024 10:54 /kellee/ JHON LANDEROS REGISTERED NURSE * AWAITING SIGNATURE * TRICIA MORENO 07/26/2024 ADDENDUM STATUS: COMPLETED THIS INTERNATIONAL SALES MANAGER SENT FAX REQUEST FOR RECORDS AND SCRIPT TO [facility] [phone] /es/ OLGA LIDIA MARKS [employer] CAPTAIN Signed: 07/26/2024 12:34 JHON LANDEROS [place] [facility] [place] [facility] Jul 25, 2024 11:22 AM ADMINISTRATIVE NOT E: LOCAL TITLE: CCC: SCHEDULING ADMINISTRATION STANDARD TITLE: ADMINISTRATIVE NOTE DATE OF NOTE: JUL 25, 2024@11:22:59 ENTRY DATE: JUL 25, 2024@11:23 AUTHOR: JE COATS COSIGNER: URGENCY: STATUS: COMPLETED CCC: SCHEDULING ADMINISTRATION Has ADDENDA Patient Demographics Patient Name: CHE PENDLETON Patient Primary Phone: [phone] Patient Primary [address]: [address] [place] [address] Patient : 1940 Patient Age: 84 Caller/Recipient Relation to Patient: Self Administrative Administrative Note Reason: Outside Care Performed Administrative Note Comments: states local loading rack supervisor prescribed Eliquis and this is expensive at local pharmacy, is inquiring if he can have this through the [place] pharmacy. Local loading rack supervisor is Dr. Ferrara at [facility], phone: [phone]. [place] will ask local office to fax notes and prescription to clinic for review/consideration. [place] can be reached at IMPORTANT: This note was created by [facility] Clinical Contact Center staff. Please do not alert the staff member by adding them as a signer for future communications. Alerts are not monitored by this user. /kellee/ JE COATS VISN 1 [facility] AMSA Signed: 07/25/2024 11:23 Receipt Acknowledged By: 07/26/2024 10:54 /kellee/ JHON LANDEROS REGISTERED NURSE 07/27/2024 15:02 /es/ TRICIA MORENO LPN LPN 07/26/2024 ADDENDUM STATUS: COMPLETED Verified with pharmacy, prescription and clinic notes From [facility] have not been faxed at this time. MSA: Please request prescription and clinic notes from: [facility] Dr. Ferrara [phone] Thank you. /kellee/ JHON LANDEROS REGISTERED NURSE Signed: 07/26/2024 11:03 Receipt Acknowledged By: 07/26/2024 12:35 /kellee/ OLGA LIDIA BOB [employer] CAPTAIN 07/26/2024 ADDENDUM STATUS: COMPLETED THIS INTERNATIONAL SALES MANAGER SENT FAX REQUEST FOR RECORDS AND SCRIPT TO [facility] [phone] /kellee/ OLGA LIDIA MARKS [employer] CAPTAIN Signed: 07/26/2024 12:34 JE COATS [facility] [place] [facility]
--- OUTSIDE RECORDS SUMMARY | 2024-08-20 12:12 | XMS_ITS | Encounter Summary ---
Author Name [facility] [place] [facility] [place] Address [address] [place] [id number] Care Team Providers Care Preschool Program Director Name Role Phone TRAY KEMP Primary Care Provider [facility] alex Insurance Providers: All historical and [...] Patient's Relationship to Policy Cohen HUMAIRA BCBS [facility] MEDICARE SUPPLEMEN DMITRY PSUED O MEDEX BRONZ E Feb 05, 2008 [id number] ANDREW PENDLETON JR PATIENT [place]BS [place] MED[place] SUPPLEMEN DMITRY MEDEX BRONZ E Feb 05, 2008 [id number] [phone] ANDREW PENDLETON JR PATIENT MEDICARE (WNR) MEDICARE (M) PART B Dec 06, 2007 PART B [id number] ANDREW PENDLETON JR PATIENT MEDICARE (WNR) MEDICARE (M) PART B Dec 06, 2007 PART B [id number] [phone] Vandana PENDLETON PATIENT MEDICARE (WNR) MEDICARE (M) PART A Apr 06, 2007 PART A [id number] [phone] KEERTHI JRANDREW PORRAS PATIENT MEDICARE (WNR) MEDICARE (M) PART A Apr 06, 2007 PART A [id number] [phone] ANDREW PENDLETON JR PATIENT Selected Encounter This section includes the information on record at [place] for the Encounter. Date/Time Encounter Type Encounter Description Reason Pro vider Source Sep 08, 2023 12:00 AM Outpatient Encounter EVENT (HISTORICAL) IHE Encounter Template Text not used by [place] Social History: Smoking Status (Most current) and Tobacco Use (All prior to encounter date) This section includes the most current, and the historical, smoking and tobacco- related health factors from the [place] facility where the Encounter took place. Current Smoking Status This section includes the most current smoking, or tobacco-related health factor, from the [place] facility where the Encounter took place. Date/Time Current Smoking Status Comment Facil ity Sep 08, 2023 01:20 PM VA-TOBACCO FORMER USER [place] [facility] [place] [facility] Tobacco Use History This section includes a history of the smoking, or tobacco-related health factors, that were collected on or before the date of the Encounter. The data comes from the [place] facility where the Encounter took place. Date/Time Smoking Status/Tobacco Use Comment F acility Sep 08, 2023 01:20 PM VA-TOBACCO QUIT 15 YRS OR MORE [place] [facility] [place] [facility] Aug 22, 2021 01:32 PM VA-TOBACCO FORMER USER [place] [facility] [place] [facility] Aug 22, 2021 01:32 PM VA-TOBACCO QUIT 15 YRS OR MORE [facility] [place] [facility] Aug 02, 2020 12:06 PM VA-TOBACCO FORMER USER [place] [facility] [place] [facility] Aug 02, 2020 12:06 PM VA-TOBACCO QUIT 5 TO < 15 YRS [facility] [place] [facility]
--- OUTSIDE RECORDS SUMMARY | 2024-08-20 12:12 | XMS_ITS ---
Author Name [facility] [place] [facility] [place] Address [address] [place] [id number] Care Team Providers Care Nuclear Waste Management Engineer Name Role Phone TRAY KEMP Primary Care Provider [facility] alex Insurance Providers: All historical [...] to Policy Cohen HUMAIRA BCBS [facility] MEDICARE SUPPLEMEN DMITRY PSUED O MEDEX BRONZ E Feb 05, 2008 [id number] ANDREW PENDLETON JR PATIENT [place] SUPPLEMEN DMITRY MEDEX BRONZ E Feb 05, 2008 [id number] ANDREW PENDLETON JR PATIENT MEDICARE (WNR) MEDICARE (M) PART B Dec 06, 2007 PART B [id number] ANDREW PENDLETON JR PATIENT MEDICARE (WNR) MEDICARE (M) PART B Dec 06, 2007 PART B [id number] [phone] Vandana PENDLETON PATIENT MEDICARE (WNR) MEDICARE (M) PART A Apr 06, 2007 PART A [id number] KEERTHI JRANDREW PORRAS PATIENT MEDICARE (WNR) MEDICARE (M) PART A Apr 06, 2007 PART A [id number] [phone] ANDREW PENDLETON JR PATIENT Selected Encounter This section includes the information on record at [place] for the Encounter. Date/Time Encounter Type Encounter Description Reason Pro vider Source Sep 10, 2023 12:00 AM Outpatient Encounter EVENT (HISTORICAL) IHE Encounter Template Text not used by [place] Social History: Smoking Status (Most current) and Tobacco Use (All prior to encounter date) This section includes the most current, and the historical, smoking and tobacco- related health factors from the [place] facility where the Encounter took place. Current Smoking Status This section includes the most current smoking, or tobacco-related health factor, from the [place] facility where the Encounter took place. Date/Time Current Smoking Status Comment Facil ity Sep 08, 2023 01:20 PM VA-TOBACCO FORMER USER [place] [facility] [place] [facility] Tobacco Use History This section includes a history of the smoking, or tobacco-related health factors, that were collected on or before the date of the Encounter. The data comes from the [place] facility where the Encounter took place. Date/Time Smoking Status/Tobacco Use Comment F acility Sep 08, 2023 01:20 PM VA-TOBACCO QUIT 15 YRS OR MORE IN [facility] [place] [facility] Aug 22, 2021 01:32 PM VA-TOBACCO FORMER USER IN [facility] [place] [facility] Aug 22, 2021 01:32 PM VA-TOBACCO QUIT 15 YRS OR MORE IN [facility] [place] [facility] Aug 02, 2020 12:06 PM VA-TOBACCO FORMER USER IN [facility] [place] [facility] Aug 02, 2020 12:06 PM VA-TOBACCO QUIT 5 TO < 15 YRS IN [facility] [place] [facility]
== END 2024-08-20 12:10 | disposition home or self-care (01) ==
LOC: HO.MRI 12:09
PROVIDERS: PCP Internal Medicine; Visit Provider Internal Medicine
DX: M25.552 Pain in left hip (principal)
CPT/HCPCS: 73721

== ENCOUNTER → 2024-10-05 10:08 | Outpatient (BNVA) | payer MEDICARE, SELFPAY | PROVIDERS: PCP Internal Medicine; Visit Provider Physician Assistant | DX: M54.30 Sciatica, unspecified side (principal); M16.12 Unilateral primary osteoarthritis, left hip | CPT/HCPCS: 99202 ==

== ENCOUNTER 2024-11-06 09:46 | Outpatient (RCR) | payer MEDICARE, SELFPAY ==
[2024-10-20 13:05] VITALS: BP 136/65; PULSE 84
--- NOTE | 2024-10-20 14:38 | MHC.PT.EP ---
[facility] [place] Office [place] Office [place] Office [address] [phone] F: [phone] F: [phone] F: [phone] F: [phone] Physical Therapy Plan of Care Date of Evaluation: 10/20/24 Date of Surgery: NA Diagnosis: Sciatica, unspecified side Unilateral primary OA, L hip Assessment: August is a 84 year old male who is referred to PT for Sciatica, unspecified side, Unilateral primary OA, L hip . He reports of having pain in low back for several years however it got worse about 4-5 months back. He denies having any trauma or falls. On PT examination he presents with 6/10 pain starting in his low back and radiating down to L LE upto the calf with standing, walking, stairs and lifting heavy weights, no TTP, decreased trunk ROM, decreased B LE strength, core strength and flexibility, altered posture and gait. He lives with his and is independent with all ADLs. He is a retired . He would benefit from skilled PT to address the aforementioned impairments and improve tolerance to functional activities. Frequency and Duration: The patient will be seen 2/week for 5 weeks Short Term Goals: 1. Pt will have 50% decrease in pain which will enable him to walk without pain in 2 weeks 2. Pt will be able to move his trunk through all planes of motion without pain which will enable him to dress her upper and lower body without pain in 3 weeks. Residential Goals: 1. Pt will demonstrate an increase in muscle strength by 1 grade which will enable to negotiate stairs and carry groceries without pain in 5 weeks 2. Pt will be independent with all HEP for symptom management and maintenance following d/c in 5 weeks. Treatment Plan: Modalities to reduce pain, spasms and effusion. Manual therapy to restore motion and function. Therapeutic exercise to improve strength and flexibility. Neuromuscular re-education for posture and balance. Therapeutic activities to return to functional activities of daily living. Electronically signed by: Shanta Judd PT DPT Please sign and return to therapist. Thank you for your referral.
--- NOTE | 2024-11-13 13:21 | MHC.PT.DC ---
[facility] [place] Office [place] Office [place] Office [address]iaziz [address] [phone] F: [phone] F: [phone] F: [phone] F: [phone] Physical Therapy Discharge Report Diagnosis: Sciatica, unspecified side Unilateral primary OA, L hip Date of Surgery: NA Date of Evaluation: 10/20/24 Date of Discharge: 11/13/24 Treatments to Date: 5 Cancellations to Date: 0 No Shows to Date: 0 Discharge Status: Achieved Goals Improved Function Independent with HEP Discharge Summary: August attended 5 PT visits and made significant improvements with PT. He is independent with all HEP. He is therefore being d/c from PT. Electronically signed by: Shanta Judd, PT DPT Please sign and return to therapist. Thank you for your referral.
== END 2024-11-13 13:21 | disposition home or self-care (01) ==
LOC: HO.PT 09:46
PROVIDERS: PCP Internal Medicine; Visit Provider Physician Assistant
DX: M54.30 Sciatica, unspecified side (principal); M16.12 Unilateral primary osteoarthritis, left hip
CPT/HCPCS: 97110; 97112; 97140; 97161

== ENCOUNTER 2024-11-15 11:46 | Outpatient (REF) | payer MEDICARE, SELFPAY ==
--- NOTE | ~2024-11-15 | XR_ITS ---
EXAMINATION: XR SHOULDER, LEFT CLINICAL INFORMATION: S49.92XA - Unspecified injury of left shoulder and upper arm, initial en... COMPARISON: None available. TECHNIQUE: AP external rotation, Grashey, scapular Y, and axillary views of the left shoulder. FINDINGS: Normal bone mineralization. No fracture, dislocation, or suspicious bone lesion. Normal alignment. The glenohumeral joint demonstrates mild degenerative arthritis. There is a moderate to high-grade AC joint separation. There is a type II acromion. No undersurface spurring. The subacromial space is preserved. Remainder of the soft tissue and bony structures appear normal. XR/XR shoulder LT min 2V IMPRESSION: 1. Moderate to high-grade grade AC separation. 2. Mild degenerative arthritis glenohumeral joint. Electronically signed by: Roge Pemberton MD 11/15/2024 12:36 PM EDT
--- OUTSIDE RECORDS SUMMARY | 2024-11-15 14:16 | XMS_ITS | Clinical Summary ---
Author Organization [facility] Address [address] [facility] [place] [address] Phone Care Team Providers Care Naturopathic Oncology Provider Name Role Phone Tono Collado MD Primary Care Provider [phone] Allergies No known active allergies Medications baclofen [...] disease invo lving coronary bypass graft of [place] heart without angina pectoris 10/08/2021 Overview (07/25/2024): [...] anticoagulated on Eliquis for stroke reduction. His [id number] score is 3 for age greater than 75 and hypertension. Educated on risks and benefits of continuing with anticoagulation including increased risk for hemorrhage and decreased risk for stroke. Encouraged to seek emergent medical attention should the patient sustain a fall involving a head strike. The patient understands these risks and agrees to continue. Encounters Date Type Department Care Team Description 09/14/2024 Telephone [facility] Cardiology [facility] - [facility] [address] [place] [phone] Tono Collado MD Medical Records 09/12/2024 Telephone [facility] Cardiology [facility] [address] [place] [phone] Oliver Butler MA Results (Echo results) 09/04/2024 1:00 PM EST Ancillary Procedure [facility] Cardiology [facility] - [address] [place] [phone] Coronary artery disease involving coronary bypass graft of [place] heart without angina pectoris; Nonrheumatic aortic (valve) [...] artery disease involving coronary bypass graft of [place] heart without angina pectoris Nonrheumatic aortic (valve) [...] 77 mL CV PACS Left Atrium Minor [place] 6.9 cm CV PACS Left Atrium Major [place] 6.9 cm CV PACS LA Area Sys [...] Proximal 2.1 cm CV PACS MV Deceleration [place] 7.0 m/s2 CV PACS E Wave Deceleration [...] Most Recently Relevant to Health Maintenance Insurance [facility] MEDICARE Care Teams Naturopathic Oncology Provider Relationship Specialty Start Date End Date Tono Collado MD [address] [place] PCP - General Internal Medicine 08/31/18
--- OUTSIDE RECORDS SUMMARY | 2024-11-15 14:17 | XMS_ITS | Continuity of Care Document ---
Author Name [facility] Organization [facility] Care Team Providers Care Newspaper Library Manager Name Role Phone [facility] Unavailable Unavailable Problems Combined list of problems [...] 35 mm HG [facility] [place] [facility] Atrial fibrillation Active Condition [facility] Benign essential hypertension Active Condition [facility] [...] Entered By: Alexandra MARIE Comment: diverticular disease [facility] : Consuelo De Leon MD [facility] [place] [facility] Cough Active Condition [facility] Diverticulosis Active Condition [facility] [place] [facility] Electrocardiogram abnormal Active Condition Jul 22, 2016 [...] to potentially hazardous substance Active Condition [facility] Gout Active Condition [facility] Hemorrhoids Active Condition [facility] Hyperlipidemia Active Condition [facility] outside providers Active Condition Se p 2014 Entered By: Alexandra MARIE Comment: PCP: Dr. Collado [facility] Pain of right shoulder joint Active Condition [facility] Posttraumatic stress disorder Active Condition [facility] Prediabetes Active Condition [facility] Diagnosis: ICD-10-CM I48.91 Unspecified atrial fibrillation Active Diagnosis [facility] Diagnosis: ICD-10-CM Z46.1 Encounter for fitting and adjustment of hearing aid Active Diagnosis [facility] Medications Combined list [...] MOUTH DAILY ORAL ACTIVE HAKEEM YOUNG 2014 [facility] IELD AMLODIPINE BESYLATE 5MG TAB TAKE ONE TABLET BY MOUTH ONCE DAILY ORAL ACTIVE [place] 2021 [facility] I[place] APIXABAN 5MG TAB TAKE ONE TABLET BY MOUTH TWICE DAILY ORAL ACTIVE HAKEEM YOUNG IA 2020 [facility] IELD ASPIRIN 81MG TAB,EC TAKE ONE TABLET BY MOUTH DAILY ORAL ACTIVE KISHA-GR NATALIA,CYN IA 2014 [facility] IELD FENOFIBRATE 145MG TAB TAKE ONE TABLET BY MOUTH ONCE DAILY ORAL ACTIVE KISHA-GR NATALIA,CYN IA 2018 [facility] IELD FINASTERIDE 5MG TAB TAKE ONE TABLET BY MOUTH ONCE DAILY ORAL ACTIVE KISHA-GR NATALIA,[facility] [place] 2019 [facility] IELD LOSARTAN POTASSIUM 100MG TAB TAKE ONE TABLET BY MOUTH DAILY ORAL ACTIVE KISHA-GR NATALIA,[facility] IA 2014 [facility] IELD METOPROLOL TARTRATE 50MG TAB TAKE ONE TABLET BY MOUTH TWICE DAILY ORAL ACTIVE KISHA-GR NATALIA,[facility] [place] 2021 [facility] PSYLLIUM PWDR,ORAL TAKE 1 TEASPOON FUL BY MOUTH ONCE DAILY ORAL ACTIVE KISHA-GR NATALIA,[facility] IA 2017 [facility] IELD SIMVASTATIN 40MG TAB TAKE ONE-HALF TABLET BY MOUTH AT BEDTIME ORAL ACTIVE KISHA-GR NATALIA,[facility] IA 2021 [facility] IELD TAMSULOSIN HCL 0.4MG CAP TAKE 1 CAPSULE BY MOUTH ONCE DAILY ORAL ACTIVE KISHA-CJ GARDNERY,[facility] IA 2017 [facility] IELD Immunizations Combined list of available immunizations from the Department of Defense and Veterans Affairs facilities. 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 Comments Source INFLUENZA, UNSPECIFIED FORMULATION 2022 88 complet ed [facility] INFLUENZA VACCINE, QUADRIVALENT, ADJUVANTED 2021 JAIMEE MCGOVERN LEFT DELTO ID [id number] 205 complet ed [facility]ELD INFLUENZA, UNSPECIFIED FORMULATION 2020 88 complet ed [facility] COVID-19 (Mag[employer]), MRNA, LNP-S, PF, 30 MCG/0.3 ML DOSE 3 2020 208 complet ed [facility] ZOSTER RECOMBINANT 2 2020 187 complet ed [facility] IELD COVID-19 (PFIZER), MRNA, LNP-S, PF, 30 MCG/0.3 ML DOSE 1 2020 208 complet ed [facility] COVID-19 (PFIZER), MRNA, LNP-S, PF, 30 MCG/0.3 ML DOSE 2 2020 208 complet ed [facility] ZOSTER RECOMBINANT 1 2019 187 complet ed [place] INFLUENZA, UNSPECIFIED FORMULATION 2019 88 complet ed [facility] INFLUENZA, SEASONAL, INJECTABLE 2018 141 complet ed outside pcp [facility] [place] [facility] INFLUENZA, INJECTABLE, QUADRIVALENT 2017 158 complet ed [...] complet ed Proximal Right Arm [place] Encounters Combined list of: 1) Encounters from Department of Veterans Affairs facilities going backup to the last 18 months, not all [place] inpatient encounters are included; 2) Encounters from the Department of Defense facilities going backup to 280 months. Location Location Details Encounter Type Encounter Number Reason For Visit Attending Provider ADM Date DC Date Status [facility] BOTH EARS [id number] Diagnos is: ICD-10- CM Z46.1 Encount er for fitting and adjustm ent of hearing aid DILLON SAWANT 05/25 [facility] Outpatient Encounter [id number] 06/06 [facility] [place] [facility] [place] [facility]AR[facility] [id number] Diagnos is: ICD-10- CM Z46.1 Encount er for fitting and adjustm ent of hearing aid LATHAYOSEF EVANGELISTAKaylan Shanta 06/18 [facility] Encounter [id number] 09/08 [facility] [place] [facility] O/P EST HI 40 MIN [id number] Diagnos is: ICD-10- CM I48.91 Unspeci fied atrial fibrill ation YOO,VICT ORIA J 09/08 [place] [facility] Out[facility] Encounter [id number] 09/08 [facility] Encounter [id number] 09/08 [facility] Encounter [id number] 09/10 [facility] En[facility] [id number] [facility] Out[facility] Encounter [id number] 07/25 [facility] En[facility] [id number] 09/05 [facility] En[facility] [id number] 09/05 [facility] Encounter [id number] 09/08 [facility] [place] [facility] Social History Combined list of available smoking, tobacco, and other social history from Department of Defense and Veterans Affairs facilities. Social History Type Response Date Comment Sourc e Tobacco smoking status NHIS VA-TOBACCO QUIT 15 YRS OR MORE 09/08/2023 [facility] [place] [facility] History of tobacco use VA-TOBACCO FORMER USER 09/08/2023 [facility] [place] [facility] History of tobacco use VA-TOBACCO FORMER USER 08/25/2022 [facility] History of tobacco use VA-TOBACCO FORMER USER 08/22/2021 [facility] [place] [facility] History of tobacco use VA-TOBACCO FORMER USER 08/02/2020 [facility] [place] [facility] History of tobacco use VA-TOBACCO FORMER USER 07/05/2018 [facility] History of tobacco use QUIT TOBACCO USE > 7 YEARS AGO 07/01/2017 [facility] Plan of Care List of future care activities from Department of Veterans Affairs facilities. Additional future care activities may be listed in the Assessment and Plan section. Date/Time Care Activity Care Activity Detail Facili ty 12/19/2024 AMBULATORY - MEDICINE AMBULATORY - MEDICI NE [facility]
== END 2024-11-15 11:47 | disposition home or self-care (01) ==
LOC: HO.HMGCX 11:46
PROVIDERS: PCP Internal Medicine; Visit Provider Physician Assistant
DX: S49.92XA Unspecified injury of left shoulder and upper arm, initial encounter (principal)
CPT/HCPCS: 73030; 99202

== ENCOUNTER 2024-11-15 11:46 | Outpatient (AMB) | payer MEDICARE, SELFPAY ==
[2024-11-15 11:48] VITALS: BP 120/80; PULSE 87; O2SAT 97
--- NOTE | 2024-11-15 11:48 | AM.OFFWIN_ITS ---
Intake Vital Signs 11/15/24 11:48 Weight 194 lb BP 120/80 Blood Pressure Location Rt brachial Position Sitting Pulse 87 Pulse Source Pulse Oximeter Pulse Oximetry (%) 97 Oxygen Delivery Method Room Air Intake Visit Reasons: EP Fall, LT shoulder pain ([place]) Intake Note: Patient here for left shoulder pain after a fall down stairs on wednesday. Patient Tobacco Use Status: Former Tobacco user Allergies No Known Allergies Allergy (Verified 11/15/24 11:49) Do you need a note to return to daycare/school/sports/work: No HPI HPI Comments History of Present Illness Details History of Present Illness - The patient is an 84-year-old male pre senting with a fall 2d ago associated with lightheadedness and subsequent left shoulder pain. - Prior to the fall, the patient experie nced lightheadedness which he attributed to not eating, related to a decrease in appetite. - Does not recall experiencing chest keke n at the time of the fall and denies head injury or loss of consciousness during the fall. - Reports being on Eliquis for atrial fi brillation, with a history of heart surgery, including aortic stenosis and triple bypass. - He states he missed the last 2 steps a nd thinks he fell on his left arm, injuring his left shoulder, notably he is left handed. - Current management of shoulder pain wi th Tylenol is challenging due to his regimen with Eliquis and typical avoidance of NSAIDs. - Has not used ice. 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 He has been undergoing physical therapy for related back issues and mentioned recent MRIs and x-rays for his back and hip. Physical Exam General: Cooperative, healthy appearing, comfortable, no acute distress and well developed Orientation: Patient oriented x3 Limitations: Limited range of motion in the left shoulder Head: Normal to inspection Ears: Hearing grossly normal bilaterally Nose: Normal external nose present Face and sinus: Normal facial exam Eyes: Appearance normal, both eyes and all related structures Neck: Normal visual inspection and Yes full ROM Respiratory: Normal respiratory effort and able to speak in complete sentences. Clear to auscultation bilaterally Cardiovascular: Regular rate and rhythm. Normal S1 and S2 Skin: Bruise noted on the left trapezius Neuro: Patient oriented x3 Extremities:as below [facility] Medical History (Updated 11/15/24 @ 12:14 by Leonela Carlos PA-C) History of cardioversion PAF (paroxysmal atrial fibrillation) CAD (coronary artery disease) Aortic stenosis Chronic renal insufficiency Gout BPH (benign prostatic hyperplasia) Elevated cholesterol HTN (hypertension) Surgical History History of open heart surgery Hx of aortic valve replacement Hx of CABG Hx of cataract extraction Hx of colonoscopy Hx of elbow surgery Social History (Updated 10/05/24 @ 10:13 by MARLY Burton) Household Members: Spouse Household Members Other:: - healthy Alcohol intake: current Alcohol intake frequency: a few times a month Patient Tobacco Use Status: Former Tobacco user Tobacco use type: Cigarette Advance Directives Date on File: 04/18/19 Current occupation: left handed Review of Systems Const All systems reviewed & are unremarkable except as noted in HPI and below Physical Exam Vital Signs: Last Vital Signs Pulse 87 11/15/24 11:48 BP 120/80 11/15/24 11:48 Pulse Ox 97 11/15/24 11:48 Oxygen Delivery Method Room Air 11/15/24 11:48 Back/Spine/Pelvis Cervical Spine: cervical ROM normal, cervical muscular tenderness (left) and No Cervical spine tenderness Extrem Left upper extremity: shoulder/upper arm Details: abnormal to inspection (left shoulder slightly lower), tenderness (trapezius) Location: of the A-C joint, swelling Location: of the A-C joint, abnormal ROM Details: pain with active ROM (negative empty can) Details: in ABduction and in internal rotation and ecchymosis (trapezius 2cm light ); no lacerations and no unsual warmth and elbow/forearm Details: normal to inspection and normal ROM; no tenderness, no swelling, no abrasions, no lacerations and no ecchymosis Assessment & Plan Assessment & Plan (1) Injury of left shoulder: Code(s): S49.92XA - Unspecified injury of left shoulder and upper arm, initial encounter Qualifiers: Encounter type: initial encounter Qualified Code(s): S49.92XA - Unspecified injury of left shoulder and upper arm, initial encounter Plan: For the fall attributed to lightheadedness secondary to hypoglycemia, I advise the patient to maintain adequate nutrition with frequent, small meals with protein and carbs to prevent future hypoglycemic episodes which could have been what led to this fall. Given the history of atrial fibrillation and current anticoagulation therapy, there is concern he was in afib prior to the fall however clinical examination today showed a regular heart rate and rhythm, reducing concern for acute arrhythmic events. To address left shoulder pain, resulting from trauma, a diagnostic x-ray is scheduled to differentiate between fracture and soft tissue damage, with Tylenol used sparingly for pain relief considering the patient's use of Eliquis. Recommend non-pharmacological approaches like applying ice and use of a sling to rest it, temporarily. Educated patient on weaning himself off of the sling after 5-7 days and then just using it for a few hours each day. Recommended he talk to his PCP to get a referral to Orthopedics if the pain does not improve slowly over the next week or two. Patient gave me permission to speak with the patient's daughter and communicate all this information to her, which I did over the phone, Michelle Gamino. Transitioning to a new primary care physician is advised due to the impending detention of the current provider, securing continuity and comprehensive management of chronic and acute health concerns. Gave patient information on obtaining a new PCP at [facility]. Patient was informed and verbally consented to the use of an ambient scribe for clinic note documentation during this visit. (2) Left shoulder pain: Code(s): M25.512 - Pain in left shoulder Qualifiers: Chronicity: acute Qualified Code(s): M25.512 - Pain in left shoulder Plan: as above Orders: Orders XR shoulder LT min 2V Today M25.512 - Pain in left shoulder, S49.92XA - Unspecified injury of left shoulder and upper arm, initial encounter Coding Level of Care Code New Pt Level 4 (70032) Diagnoses Injury of left shoulder, initial encounter S49.92XA Encounter type: initial encounter Acute pain of left shoulder M25.512 Chronicity: acute
--- OUTSIDE RECORDS SUMMARY | 2024-11-15 13:50 | XMS_ITS | Clinical Summary ---
Author Organization [facility] Address [address] [facility] [place] [address] Phone Care Team Providers Care Eap Consultant Name Role Phone Tono Collado MD Primary Care Provider [phone] Allergies No known active allergies Medications baclofen (LIORESAL) 5 mg tablet Take 1 Tablet by mouth 3 times daily. Active losartan (COZAAR) 100 mg tablet Take 1 tablet (100 mg total) by mouth 1 (one) time each day. 4 Active apixaban (Eliquis) 5 mg tablet Take 1 tablet (5 mg total) by mouth 2 (two) times a day. 4 Active tamsulosin (FLOMAX) 0.4 mg 24 hr capsule Take 1 Capsule by mouth daily. Take 30 mins after same meal every day. Active simvastatin (ZOCOR) 20 mg tablet TAKE 1 TABLET BY MOUTH AT BEDTIME 2 Active ASPIRIN ORAL Take 1 tablet by mouth daily. Active allopurinoL (ZYLOPRIM) 300 mg tablet Take 1 tablet (300 mg total) by mouth 1 (one) time each day. Active finasteride (PROPECIA) 1 mg tablet Take 1 tablet (1 mg total) by mouth 1 (one) time each day. Active fenofibrate (TRICOR) 145 mg tablet TAKE 1 TABLET EVERY DAY 90 tablet 3 4 Active amLODIPine (NORVASC) 10 mg tablet TAKE 1 TABLET EVERY DAY 90 tablet 3 5 Active metoprolol succinate (TOPROL-XL) 100 mg 24 hr tablet TAKE 1 TABLET EVERY DAY 90 tablet 1 5 Active metoprolol succinate (TOPROL-XL) 100 mg 24 hr tablet Take 1 Tablet by mouth daily for 360 days. 4 11/02/19 25 Discontinued Active Problems Problem Noted Date Diagnosed Date Nonrheumatic mitral valve regurgitation 04/01/20 23 Overview (07/25/2024): Last Assessment & Plan: Moderate on echocardiogram from 07/2022. Repeat in about 6 months time (a little over 1 year from his prior) to follow. His shortness of breath is stable. Nonrheumatic aortic valve stenosis 01/05/2022 Overview (07/25/2024): Bioprosthetic AVR November 2019 for progressive aortic stenosis Last Assessment & Plan: We will update surveillance echocardiogram. Coronary artery disease invo lving coronary bypass graft of [place] heart without angina pectoris 10/08/2021 Overview (07/25/2024): Last Assessment & Plan: He does endorse shortness of breath, dyspnea on exertion and decreased activity tolerance which has significantly worsened since his last office visit. We will update ischemic evaluation in the form of a nuclear stress test. Instructed to call 911 or go to the emergency room should the patient begin to experience chest pain or pressure lasting greater than 10 minutes does not resolve with rest. Essential hypertension 10/08/2021 Overview (07/25/2024): Last Assessment & Plan: Well-controlled during today's exam with a reading of 120/68. I have made no changes to his medications. Educated on the importance of diet lifestyle to help further assist in reducing blood pressure. The patient was encouraged to follow low-salt low-fat diet, make purposeful strides towards weight loss, and engage in routine aerobic exercise as tolerated. Hyperlipidemia 10/08/2021 Overview (07/25/2024): Last Assessment & Plan: Will request results from PCP for updated lipid profile. Goal LDL less than 70 however more ideally 55 in the setting of coronary artery disease and hypertension. Continue his current dose of statin therapy and be mindful of his dietary fat intake. Paroxysmal atrial fibrillation 10/08/2021 Overview (07/25/2024): Last Assessment & Plan: Denies perception of recurrence of arrhythmia. Continues to be anticoagulated on Eliquis for stroke reduction. His [id number] score is 3 for age greater than 75 and hypertension. Educated on risks and benefits of continuing with anticoagulation including increased risk for hemorrhage and decreased risk for stroke. Encouraged to seek emergent medical attention should the patient sustain a fall involving a head strike. The patient understands these risks and agrees to continue. Encounters Date Type Department Care Team Description 09/14/2024 Telephone [facility] Cardiology [facility] - [facility] [address] [place] [phone] Tono Collado MD Medical Records 09/12/2024 Telephone [facility] Cardiology [facility] - [address] [place] [phone] Oliver Butler MA Results (Echo results) 09/04/2024 1:00 PM EST Ancillary Procedure [facility] Cardiology [facility] - [address] [place] [phone] Coronary artery disease involving coronary bypass graft of [place] heart without angina pectoris; Nonrheumatic aortic (valve) stenosis from Last 3 Months Social History Tobacco Use Types Packs/Day Years Used Date Smoking Tobacco: Former Smokeless Tobacco: Never Alcohol Use Standard Drinks/Week Comments Yes 0 (1 standard drink = 0.6 oz pur e alcohol) Sex and Gender Information Value Date Recorded Sex Assigned at Not on file Legal Sex Male 5:31 AM EST Gender Identity Not on file Sexual Orientation Not on file Obstetrics History Last Filed Vital Signs Vital Sign Reading Time Taken Comments Blood Pressure 149/83 09/04/2024 3:27 PM EST Pulse 94 06/29/2024 8:54 AM EDT Temperature - - Respiratory Rate - - Oxygen Saturation - - Inhaled Oxygen Concentration - - Weight 88.5 kg (195 lb) 09/04/2024 3:27 PM EST Height 180.3 cm (5' 11 ) 09/04/2024 3:27 PM EST Body Mass Index 27.2 09/04/2024 3:27 PM EST Plan of Treatment Health Maintenance Due Date Last Done Comments RSV Immunization Patients 60+ Years Old (1 - 1-dose 75+ series) 2017 Depression Screening 08/09/2022 Falls Risk Assessment 08/09/2022 Medicare Annual Wellness Visit 08/09/2022 Social Influencers of Health Screening 08/09/2022 Hypertension/CHF/CAD Annual BMP Blood Test 08/15/2022 COVID-19 Vaccine ( season) 2024 06/24/2021, 10/09/2020, 10/01/2020 DTaP,Tdap,and Td Vaccines (2 - Tdap) 06/05/2025 06/05/2015 Cholesterol Screening (Lipid Panel) 05/22/2027 05/22/2022 Pneumococcal Vaccine: 50+ Years Completed 07/01/2017, 07/18/2015 Zoster Vaccines Completed 12/04/2020, 1209/2019, 05/21/2015 Influenza Vaccine Completed 05/31/2024, , 05/31/2023, Additional history exists HIB Vaccines Aged Out No longer eligi ble based on patient's age to complete this topic HPV Vaccines Aged Out No longer eligi ble based on patient's age to complete this topic Hepatitis A Vaccines Aged Out No long er eligible based on patient's age to complete this topic Hepatitis B Vaccines Aged Out No long er eligible based on patient's age to complete this topic IPV Vaccines Aged Out No longer eligi ble based on patient's age to complete this topic MMR Vaccines Aged Out No longer eligi ble based on patient's age to complete this topic Meningococcal ACWY Vaccine Aged Out N o longer eligible based on patient's age to complete this topic Meningococcal B Vacine Aged Out No lo nger eligible based on patient's age to complete this topic RSV Immunization Patients Under 20 months Aged Out No longer eligible based on patient's age to complete this topic Varicella Vaccines Aged Out No longer eligible based on patient's age to complete this topic Procedures Procedure Name Priority Date/Time Associated Diagnosis Comments TRANSTHORACIC ECHOCARDIOGRAM (TTE) COMPLETE Routine 09/04/2024 1:40 PM EST Coronary artery disease involving coronary bypass graft of [place] heart without angina pectoris Nonrheumatic aortic (valve) stenosis LIPID PANEL Routine 05/22/2022 from Last 3 Months or Most Recently Relevant to Health Maintenance Results * (ABNORMAL) TRANSTHORACIC ECHOCARDIOGRAM (TTE) COMPLETE (09/04/2024 1:40 PM EST) LV EDV (A2C) 106 mL CV PACS LV EDV (A4C) 125 mL CV PACS LV Diastolic Volume (BP) 115 62 - 150 mL CV PACS LV ESV (A2C) 51 mL CV PACS LV ESV (A4C) 49 mL CV PACS LV Systolic Volume (BP) 50 21 - 61 mL CV PACS IVSD 1.2(A) 0.6 - 1.0 cm CV PACS LVIDD 6.0(A) 4.2 - 5.8 cm CV PACS LVIDS 4.5(A) 2.5 - 4.0 cm CV PACS LVOT Diameter 2.1 cm CV PACS LVOT Mean [place] 0.7 m/s CV PACS LVOT Mean Grad 2 mmHg CV PACS LVOT Mean Grad 2 mmHg CV PACS LVOT Mean Grad 2 mmHg CV PACS LVOT Mean Grad 2 mmHg CV PACS LVOT Peak VTI 22.2 cm CV PACS LVOT Peak [place] 1.0 m/s CV PACS LVOT Peak Gradient 4 mmHg CV PACS LVPWD 1.2(A) 0.6 - 1.0 cm CV PACS MV E' Tissue Velocity Lateral 8 cm/s CV PACS MV E' Tissue Velocity Septal 6 cm/s CV PACS Ejection Fraction (A2C) 52 % CV PACS Ejection Fraction (A4C) 61 % CV PACS Ejection Fraction (BP) 56 % CV PACS LVOT Area 3.5 cm2 CV PACS LVOT Stroke Volume 77 mL CV PACS Left Atrium Minor [place] 6.9 cm CV PACS Left Atrium Major [place] 6.9 cm CV PACS LA Area Sys (A2C) 35 cm2 CV PACS LA Area Sys (A4C) 28 cm2 CV PACS LA Volume (BP) 116 mL CV PACS LA Size 6.3 cm CV PACS RA Area 23.7 cm2 CV PACS RA 2D Volume 68 mL CV PACS AV Mean Gradient 27 mmHg CV PACS Ao VTI 72.7 cm CV PACS AV Peak [place] 3.5 m/s CV PACS AV Peak Gradient 48 mmHg CV PACS AV Area Continuity Equation 1.1 cm2 CV PACS AV Area Peak Velocity 1.0 cm2 CV PACS IVC Proximal 2.1 cm CV PACS MV Deceleration [place] 7.0 m/s2 CV PACS E Wave Deceleration Time 156 119 - 242 ms CV PACS MV PHT 48 ms CV PACS MV Peak A [place] 1.28 m/s CV PACS MV Peak E [place] 1.13 m/s CV PACS MV Mean Gradient 4 mmHg CV PACS MV Mean Gradient 4 mmHg CV PACS MV Mean Gradient 4 mmHg CV PACS MV VTI 35.1 cm CV PACS Mitral Valve Max Velocity 1.5 m/s CV PACS MV Peak Gradient 8 mmHg CV PACS MV Area PHT 4.6 cm2 CV PACS MV Area Continuity Equation 2.2 cm2 CV PACS PV Acceleration Time 127 ms CV PACS PV Mean Gradient 2 mmHg CV PACS PV VTI 21.4 cm CV PACS PV Peak Velocity 1.0 m/s CV PACS PV Peak Gradient 4 mmHg CV PACS RV Diastolic Basal Dimension 4.4(A) 2.5 - 4.1 cm CV PACS RV S' 7 cm/s CV PACS TAPSE 15 mm CV PACS TR Peak Velocity 2.93 m/s CV PACS TR Peak Gradient 34 mmHg CV PACS E/E' Ratio Septal 19 CV PACS E/E' Ratio Averaged 16 CV PACS Relative Wall Thickness ratio 0.40 CV PACS LVOT:AV VTI Index 0.31 CV PACS FS 25 % CV PACS LV Mass 2D 314 g CV PACS MV VTI:LVOT VTI ratio 1.6 CV PACS LVOT flow 242 mL/s CV PACS AV Velocity Ratio 0.29 CV PACS E/A Ratio 0.9 CV PACS E/E' Ratio Lateral 14 CV PACS BSA 2.1 m2 CV PACS LV Diastolic Volume Index (BP) 55 34 - 74 mL/m2 CV PACS LV Systolic Volume Index (BP) 24 11 - 31 mL/m2 CV PACS LV EDV Index (A4C) 60 mL/m2 CV PACS LV ESV Index (A4C) 23 mL/m2 CV PACS LV EDV Index (A2C) 51 mL/m2 CV PACS LV ESV Index (A2C) 24 mL/m2 CV PACS LA Volume Index (BP) 56 mL/m2 CV PACS LVIDD Index 2.87 cm/m2 CV PACS LVIDS Index 2.15 cm/m2 CV PACS LV Mass Index 2D 150(A) 50 - 102 g/m2 CV PACS LVOT Stroke Index 37 mL/m2 CV PACS LA Dimension Index 2D 3.0 cm/m2 CV PACS RA 2D Volume Index 33(A) 18 - 32 mL/m2 CV PACS TEJA Index (VTI) 0.51 cm2/m2 CV PACS TEJA Index (Pk Chema) 0.48 cm2/m2 CV PACS Right Ventricular Peak Systolic Pressure 42 mmHg CV PACS Est. RA Pressure 8 mmHg CV PACS Anatomical Region Laterality Modality Ultrasound Narrative 09/05/2024 10:09 AM EST ?Left ventricle cavity is mildly dilated. Left ventricular systolic function is in the normal range with an ejection fraction of 55-60%. ?No regional LV wall motion abnormalities noted. ?Left ventricle mild concentric hypertrophy. ?Right ventricle cavity is mildly enlarged. Right ventricular systolic function is normal. ?Mildly elevated right ventricular systolic pressure. ?A bioprosthetic aortic valve is present. Prosthetic valve appears to be functioning normally with a gradient above the expected range. ?Mitral valve demonstrates moderate regurgitation with a centrally directed jet. ?Compared to the prior echo from 09/2023, the aortic valve gradients have increased. Left Ventricle Left ventricle cavity is mildly dilated. There is mild concentric hypertrophy. Systolic function is normal with an ejection fraction of 55-60%. There are no regional LV wall motion abnormalities. Unable to assess diastolic function. There is abnormal septal motion consistent with post-operative status. Right Ventricle Right ventricle cavity is mildly dilated. Systolic function is normal. Left Atrium Left atrium cavity is severely dilated. Right Atrium Right atrium cavity is mildly dilated. IVC/SVC Inferior vena cava structure is normal. RA pressures is estimated to be 8 mmHg (IVC diameter <21 mm and decreases <50% during inspiration). Mitral Valve The leaflets are mildly thickened. There is mild annular calcification. There is moderate regurgitation with a centrally directed jet. There is no evidence of mitral valve stenosis. Tricuspid Valve Tricuspid valve structure is normal. There is mild regurgitation with a central jet. There is no evidence of tricuspid valve stenosis. The right ventricular systolic pressure is mildly elevated. Aortic Valve The valve has been surgically replaced. There is a bioprosthetic valve. The prosthetic valve appears to be functioning normally. There is no regurgitation. The gradient recorded across the prosthetic aortic valve is above the expected range suggestive of at least mild prosthetic stenosis. Pulmonic Valve There is mild pulmonic valve regurgitation. There is no evidence of pulmonic valve stenosis. Ascending Aorta The aorta was not well visualized. Pericardium Pericardium appears normal. There is no pericardial effusion. Study Details Overall the study quality was adequate. Jessica Bradley NP CV ECHO PROCEDURES Fin al Result * Lipid panel (05/22/2022) Triglycerides 157 mg/dL Cholesterol 181 mg/dL HDL 57 mg/dL Blood Venous blood specimen / Unknown Historical Provider LAB BLOOD ORDERABLES Libby quintero Result from Last 3 Months or Most Recently Relevant to Health Maintenance Insurance [facility] MEDICARE Care Teams Eap Consultant Relationship Specialty Start Date End Date Tono Collado MD [address] [place] PCP - General Internal Medicine 08/31/18
== END 2024-11-15 12:57 | disposition home or self-care (01) ==
PROVIDERS: PCP Internal Medicine; Visit Provider Physician Assistant
DX: S49.92XA Unspecified injury of left shoulder and upper arm, initial encounter (principal); M25.512 Pain in left shoulder

== ENCOUNTER → 2024-11-15 12:18 | Outpatient (BNV) | payer MEDICARE, SELFPAY | PROVIDERS: PCP Internal Medicine; Visit Provider Radiology Diagnostic Radiology | DX: S43.102A Unspecified dislocation of left acromioclavicular joint, initial encounter (principal) | CPT/HCPCS: 73030 ==

== ENCOUNTER 2024-12-20 13:54 | Outpatient (AMB) | payer MEDICARE, SELFPAY ==
--- NOTE | 2024-12-20 13:55 | A.OFFVIS_ITS ---
Vital Signs 12/20/24 14:09 Height 5 ft 11.5 in Weight 186 lb BMI 25.6 Intake Visit Reasons: Newprob-Pain in left shoulder/limited ROM Intake Note: August is an 84 year old left hand dominant male who presents today for an evaluation of left shoulder. Patient reports that he had a fall down the stairs landing on his left arm about a month ago. His pain is located primarily in his shoulder. He has weakness and discomfort with lifting items. Limited ROM. No numbness or tingling. States his pain has improved since his fall. Allergies No Known Allergies Allergy (Verified 12/20/24 14:16) HPI HPI Newprob-Pain in left shoulder/limited ROM: Details: 84-year-old gentleman presents to the office today for left shoulder pain. He states approximately 4-6 weeks ago he did fall and land on that left side however since this incident the pain has fully resolved. He has no complaints of discomfort or limitations with daily activities. FORMERLY [facility], [facility] Medical History (Updated 12/22/24 @ 13:08 by Shonda Mendieta PA-C) History of cardioversion PAF (paroxysmal atrial fibrillation) CAD (coronary artery disease) Aortic stenosis Chronic renal insufficiency Gout BPH (benign prostatic hyperplasia) Elevated cholesterol HTN (hypertension) Surgical History Hx of aortic valve replacement Hx of CABG Hx of cataract extraction Hx of elbow surgery History of open heart surgery Hx of colonoscopy Social History Household Members: Spouse Household Members Other:: - healthy Alcohol intake: current Alcohol intake frequency: a few times a month Patient Tobacco Use Status: Former Tobacco user Tobacco use type: Cigarette Advance Directives Date on File: 04/18/19 Current occupation: left handed Review of Systems Const All systems reviewed & are unremarkable except as noted in HPI and below Physical Exam Vital Signs: BMI result Body Mass Index 25.6 Const General: cooperative and no acute distress Orientation/consciousness: patient oriented x3 Resp Effort & Inspection: normal respiratory effort and able to speak in complete sentences Cardio Peripheral pulses: Peripheral pulses 2+ throughout Neuro General: patient oriented x3 Extrem Other: Left shoulder normal to inspection. He has full range of motion in all planes. He is able to activate rotator cuff strength without limitations. Neurovascularly intact. Results Reviewed Results Reviewed: XR shoulder LT min 2V IMPRESSION: 1. Moderate to high-grade grade AC separation. 2. Mild degenerative arthritis glenohumeral joint. Assessment & Plan Assessment & Plan (1) Separation of left acromioclavicular joint, type 1: Code(s): S43.102A - Unspecified dislocation of left acromioclavicular joint, initial encounter Category: Medical Plan: On x-ray imaging he does have evidence of an AC separation. Given his absence of pain and limitations he can resume all activities as tolerated. If symptoms arise or there is any concerns he will contact our office otherwise follow up as needed. Coding Level of Care Code Est Pt Level 3 (52165) Complex EM visit Add On G2211 Diagnoses Separation of left acromioclavicular joint, type 1 S43.102A
[2024-12-20 14:09] VITALS: BMI 25.6
--- OUTSIDE RECORDS SUMMARY | 2024-12-20 16:36 | XMS_ITS | Encounter Summary ---
Author Name [facility] Organization [facility] [place] [place] [facility] [place] Address [address] [place] [address] Care Team Providers Care Environmental Journalist Name Role Phone TRAY KEMP Primary Care Provider [facility] alex Insurance Providers: All historical and [...] Patient's Relationship to Policy Cohen HUMAIRA BCBS [facility] MEDICARE SUPPLEMEN DMITRY PSUED O MEDEX BRONZ E Feb 05, 2008 [id number] ANDREW PENDLETON JR PATIENT BCBS [place] MEDICARE SUPPLEMEN DMITRY MEDEX BRONZ E Feb 05, 2008 [id number] [phone] ANDREW PENDLETON JR PATIENT MEDICARE (WNR) MEDICARE (M) PART B Dec 06, 2007 PART B [id number] ANDREW PENDLETON JR PATIENT MEDICARE (WNR) MEDICARE (M) PART B Dec 06, 2007 PART B [id number] [phone] Vandana PENDLETON PATIENT MEDICARE (WNR) MEDICARE (M) PART A Apr 06, 2007 PART A [id number] ANDREW PENDLETON JR PATIENT MEDICARE (WNR) MEDICARE (M) PART A Apr 06, 2007 PART A [id number] ANDREW PENDLETON JR PATIENT Selected Encounter This section includes the information on record at [place] for the Encounter. Date/Time Encounter Type Encounter Description Reason Provider Source Dec 19, 2024 01:00 PM OFFICE O/P EST HI 40 MIN PRIMARY CARE/MEDICINE ICD-10-CM I48.0 Paroxysmal atrial fibrillation TRAY KEMP Alex Encounter Template Text not used by [place] Assessments - Encounter Diagnoses This section includes the primary and secondary diagnoses documented for the Encounter. Date/Time Primary/Secondary Diagnosis Diagnosis Name Provider Source Dec 19, 2024 05:08 PM PRIMARY Paroxysmal atrial fibrillation TRAY KEMP [facility] Dec 19, 2024 05:08 PM SECONDARY Benign prostatic hyperplasia with lower urinary tract symp TRAY KEMP [facility] Dec 19, 2024 05:08 PM SECONDARY Chronic kidney disease, stage 2 (mild) TRAY KEMP [facility] Dec 19, 2024 05:08 PM SECONDARY Essential (primary) hypertension TRAY KEMP [facility] Dec 19, 2024 05:08 PM SECONDARY Hyperlipidemia, unspecified TRAY KEMP [facility] Dec 19, 2024 05:08 PM SECONDARY Idiopathic chronic gout, left elbow, without tophus (tophi) TRAY KEMP [facility] Dec 19, 2024 05:08 PM SECONDARY Nonrheumatic aortic (valve) stenosis TRAY KEMP [facility] Dec 19, 2024 05:08 PM SECONDARY Post-traumatic stress disorder, unspecified TRAY KEMP [facility] Vital Signs: All taken on the encounter date This section contains inpatient and outpatient Vital Signs collected on the date of the Encounter. Date/Time Temperature Pulse Blood Pressure Respiratory Rate SP02 Pain Height Weight Body Mass Index Source Dec 19, 2024 01:03 PM 97.6 76 135/71 19 97 71.5 186 26 [facility] Social History: Smoking Status (Most current) and Tobacco Use (All prior to encounter date) This section includes the most current, and the historical, smoking and tobacco- related health factors from the [place] facility where the Encounter took place. Current Smoking Status This section includes the most current smoking, or tobacco-related health factor, from the [facility] where the Encounter took place. Date/Time Current Smoking Status Comment Facil ity Aug 25, 2022 01:00 PM VA-TOBACCO FORMER USER [facility] Tobacco Use History This section includes a history of the smoking, or tobacco-related health factors, that were collected on or before the date of the Encounter. The data comes from the [place] facility where the Encounter took place. Date/Time Smoking Status/Tobacco Use Comment F acility Aug 25, 2022 01:00 PM VA-TOBACCO QUIT 15 YRS OR MORE [facility] Jul 05, 2018 02:11 PM VA-TOBACCO FORMER USER [facility] Jul 05, 2018 02:11 PM VA-TOBACCO QUIT 5 TO < 15 YRS [facility] Jul 01, 2017 10:41 AM QUIT TOBACCO USE > 7 YEARS AGO [facility] Encounter Notes: All associated encounter notes This [...] PENDLETON, is a 84 yo WHITE MALE Organ who presents at the [place] [facility]. TYPE OF VISIT: Face to face [...] AC separation and he was referred to [facility] where he has follow-up next week. Nuclear stress 06/29/2024 normal with LVEF 62%. TTE in September 2023: LVEF 55 to 60% with grade 2 diastolic dysfunction. He continues to follow with [facility] cardiology. No recent labs as these are followed by his community PCP. Recent diagnostic studies were reviewed with the Organ as noted. All medications were reconciled during this visit. HEALTHCARE PROVIDERS: Community PCP: Dr. Collado Cardiology: Dr. Ferrara Ortho: [facility] Social Hx: The is and lives with his . He stopped smoking more than 60 years ago. He drinks 1-2 alcoholic beverages/day. No cannabis or illicit substances. 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 He walks daily. 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 EXAMINATION General: Well-appearing older Organ in no obvious distress. Mental Status: Alert [...] the following: Paroxysmal atrial fibrillation: Following with [facility] cardiology. He underwent nuclear stress testing 06/29/2024 for exertional dyspnea. Study was normal with LVEF 62%. He denies any palpitations or chest discomfort. Maintained on apixaban for primary risk reduction and metoprolol for ventricular rate control. Posttraumatic stress disorder: Not currently following with . He denies SI/HI. Organ has been educated on how to access Mental Health Services if needed at any time of day or night and advised to seek immediate assistance if he/she ever experiences suicidal or homicidal thoughts by calling 911 or presenting to nearest ER. Vet has been provided with Crisis Hot-Line Number: 7-991-132-TALK (6488). Chronic kidney disease: Unclear if stable as [...] this [facility] (local) and dispensed from another [place] or [facility] facility (remote) as well as inpatient [...] providers below, thank you. Dr. Heaven Jacob Allen Cardiology: Dr. Kennedy [facility] Dr. Ibrahim Urology /kellee/ JHON LANDEROS REGISTERED NURSE Signed: 12/14/2024 13:39 Receipt Acknowledged By: 12/18/2024 09:05 /kellee/ OLGA LIDIA MARKS ADVANCE ENVIRONMENTAL PLANNER 12/18/2024 ADDENDUM STATUS: COMPLETED THIS NUCLEAR STATION OPERATOR SEND FAX REQ FOR REC'S PER RN REQUEST TO DR COLLADO'S OFFICE [phone] PV CARDIO OFFICE [phone] PV UROLOGY OFFICE [phone] /kellee/ OLGA LIDIA MARKS ADVANCE ENVIRONMENTAL PLANNER Signed: 12/18/2024 09:05 JHON LANDEROSFIELD
--- OUTSIDE RECORDS SUMMARY | 2024-12-20 16:36 | XMS_ITS | Clinical Summary ---
Author Organization [facility] [employer] [facility] Address [address] [place] [address] Phone Care Team Providers Care Pocket Assembler Name Role Phone Tono Collado MD Primary Care Provider [phone] Allergies No known active allergies Medications baclofen (LIORESAL) 5 mg tablet Take 1 Tablet by mouth 3 times daily. Active losartan (COZAAR) 100 mg tablet Take 1 tablet (100 mg total) by mouth 1 (one) time each day. 06/19/2024 Active apixaban (Eliquis) 5 mg tablet Take 1 tablet (5 mg total) by mouth 2 (two) times a day. 05/16/2024 Active tamsulosin (FLOMAX) 0.4 mg 24 hr capsule Take 1 Capsule by mouth daily. Take 30 mins after same meal every day. Active simvastatin (ZOCOR) 20 mg tablet TAKE 1 TABLET BY MOUTH AT BEDTIME 03/19/2022 Active ASPIRIN ORAL Take 1 tablet by mouth daily. Active allopurinoL (ZYLOPRIM) 300 mg tablet Take 1 tablet (300 mg total) by mouth 1 (one) time each day. Active finasteride (PROPECIA) 1 mg tablet Take 1 tablet (1 mg total) by mouth 1 (one) time each day. 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 Paroxysmal atrial fibrillation (CMS/HCC V24, CMS /HCC V28) 10/08/2021 Overview (07/25/2024): Last Assessment & Plan: Denies perception of recurrence of arrhythmia. Continues to be anticoagulated on Eliquis for stroke reduction. His [id number] score is 3 for age greater than 75 and hypertension. Educated on risks and benefits of continuing with anticoagulation including increased risk for hemorrhage and decreased risk for stroke. Encouraged to seek emergent medical attention should the patient sustain a fall involving a head strike. The patient understands these risks and agrees to continue. Social History Tobacco Use Types Packs/Day Years [...] Due Date Last Done Comments RSV Immunization Adult Patients (1 - 1-dose 75+ series) 2017 Depression Screening 08/09/2022 Falls Risk Assessment 08/09/2022 Medicare Annual Wellness Visit 08/09/2022 Social Influencers of Health Screening 08/09/2022 Hypertension/CHF/CAD Annual BMP Blood Test 08/15/2022 COVID-19 Vaccine ( season) 2024 06/24/2021, 10/09/2020, 10/01/2020 DTaP,Tdap,and Td Vaccines (2 - Tdap) 06/05/2025 06/05/2015 Cholesterol Screening (Lipid Panel) 05/22/2027 05/22/2022 Pneumococcal Vaccine: 50+ Years Completed 07/01/2017, 07/18/2015 Zoster Vaccines Completed 12/04/2020, 12/0 09/2019, 05/21/2015 Influenza Vaccine Completed 05/31/2024, , 05/31/2023, [...] age to complete this topic Meningococcal B Vaccine Aged Out No l onger eligible based on patient's age to complete this topic RSV Immunization Patients Under 20 months Aged Out No longer eligible based on patient's age to complete this topic Varicella Vaccines Aged Out No longer eligible based on patient's age to complete this topic Procedures Procedure Name Priority Date/Time Associated Diagnosis Comments LIPID PANEL Routine 05/22/2022 from Last 3 Months or Most Recently Relevant to Health Maintenance Results * Lipid panel (05/22/2022) Triglycerides 157 mg/dL Cholesterol 181 mg/dL HDL 57 mg/dL Blood Venous blood specimen / Unknown Historical Provider LAB BLOOD ORDERABLES Libby l Result from Last 3 Months or Most Recently Relevant to Health Maintenance Insurance [facility] MEDICARE Care Teams Pocket Assembler Relationship Specialty Start Date End Date Tono Collado MD [address] KELLY [place] PCP - General Internal Medicine 08/31/18
--- OUTSIDE RECORDS SUMMARY | 2024-12-20 16:37 | XMS_ITS | Encounter Summary ---
Author Name [facility] [place] [facility] [place] [place] Address [address] [place] [id number] Care Team Providers Care Water System Operator Name Role Phone TRAY KEMP Primary [...] O MEDEX BRONZ E Feb 05, 2008 [id number] ANDREW PENDLETON JR PATIENT BCBS [place] MEDICARE SUPPLEMEN DMITRY MEDEX BRONZ E Feb 05, 2008 [id number] [phone] ANDREW PENDLETON JR PATIENT MEDICARE (WNR) MEDICARE (M) PART B Dec 06, 2007 PART B [id number] ANDREW PENDLETON JR PATIENT MEDICARE (WNR) MEDICARE (M) PART B Dec 06, 2007 PART B [id number] [phone] Vandana PENDLETON PATIENT MEDICARE (WNR) MEDICARE (M) PART A Apr 06, 2007 PART A [id number] ANDREW PENDLETON JR PATIENT MEDICARE (WNR) MEDICARE (M) PART A Apr 06, 2007 PART A [id number] [phone] ANDREW PNEDLETON JR PATIENT Selected Encounter This section includes the information on record at [place] for the Encounter. Date/Time Encounter Type Encounter Description Reason Provider Source Dec 19, 2024 01:04 PM Outpatient Encounter PRIMARY CARE/MEDICINE TRAY KEMP Alex Encounter Template Text not used by [place] [...] Date/Time Current Smoking Status Comment David dykes Dec 19, 2024 01:04 PM VA-TOBACCO NEVER U SED CIGARETTES [place] [facility] Tobacco Use History This section includes a history of the smoking, or tobacco-related health factors, that were collected on or before the date of the Encounter. The data comes from the [place] facility where the Encounter took place. Date/Time Smoking Status/Tobacco Use Comment F acjosy Dec 19, 2024 01:04 PM VA-TOBACCO NEVER U SED OTHER TYPE [place] [facility] [place] [facility] Sep 08, 2023 01:20 PM VA-TOBACCO FORMER USER [place] [facility] [place] [facility] Sep 08, 2023 01:20 PM VA-TOBACCO QUIT 15 YRS OR MORE [place] [facility] [place] [facility] Aug 22, 2021 01:32 PM VA-TOBACCO FORMER USER [place] [facility] [place] [facility] Aug 22, 2021 01:32 PM VA-TOBACCO QUIT 15 YRS OR MORE [place] [facility] [place] [facility] Aug 02, 2020 12:06 PM VA-TOBACCO FORMER USER [place] [facility] [place] [facility] Aug 02, 2020 12:06 PM VA-TOBACCO QUIT 5 TO < 15 YRS [place] [facility] [place] [facility] Encounter Notes: All associated encounter notes This section contains the clinical notes associated to the Encounter. Date/Time Encounter Note(s) Provider Source Dec 19, 2024 01:04 PM PREVENTIVE MEDICIN E NURSING NOTE: LOCAL TITLE: CLINICAL REMINDERS/NURSING STANDARD TITLE: PREVENTIVE MEDICINE NURSING NOTE DATE OF NOTE: DEC 19, 2024@13:04 ENTRY DATE: DEC 19, 2024@13:04:42 AUTHOR: SLADE FINNEGAN COSIGNER: URGENCY: STATUS: COMPLETED Advance Directive Screen MH AD: Patient does not have a completed advance directive on file at any facility, [facility] or outside. S/he is not interested in completing one at this time. The patient received education about Advance Directives and written notification of his/her rights. Suicide Screen: C-SSRS Screening [place] Suicide Severity Rating Scale (C-SSRS) screener 1. [...] Not worried about housing near future The [place] reports the following: Within the past 12 months, you worried whether your food would run out before you got money to buy more. Never true Within the past 12 months, the food you bought just didn't last and you didn't have money to get more. Never true Depression Screening: Perform PHQ-2 A PHQ-2 screen [...] months, did the patient report any falls? 3. At least one fall with injury requiring treatment (in ED or clinic visit). Incontinence Screen: During the past 12 months, has the patient has any characteristics of incontinence (ability, voiding, leakage, etc.)? No incontinence. Tobacco Use Screening: The patient has never smoked cigarettes. The patient has never used other types of tobacco. Influenza Immunization: Deferral / Refusal The patient declines to receive the recommended dose of seasonal influenza vaccine. Immunization: INFLUENZA, UNSPECIFIED FORMULATION Refusal Reason: PATIENT DECISION Patient refuses all immunization(s) in the FLU group Date Documented: 12/19/24 13:05 Td/Tdap Immunization: The patient declines to receive the recommended dose of Td/Tdap vaccine. Immunization: TD(ADULT) UNSPECIFIED FORMULATION Refusal Reason: PATIENT DECISION Patient refuses all immunization(s) in the Td group Date Documented: 12/19/24 13:05 Alcohol Use Screen (AUDIT-C): Alcohol Screen: SCREEN FOR ALCOHOL (AUDIT-C) An alcohol screening test (AUDIT-C) was negative (score=0). 1. How often did you have a drink containing alcohol in the past year? Consider a drink to be a 12 ounce can or bottle of regular beer, 8 ounces of malt liquor, a 5 ounce glass of table wine, or a 1.5 ounce shot of liquor (like scotch, gin, or vodka). Never 2. How many drinks containing alcohol did you have on a typical day when you were drinking in the past year? Response not required due to responses to other questions. 3. How often did you have six or more drinks on one occasion in the past year? Response not required due to responses to other questions. RSV Immunization: Respiratory Syncytial Virus (RSV) Vaccine: Refused [employer] (RSV vaccine, adjuvanted, Arexvy). Immunization: RSV, RECOMBINANT, PROTEIN SUBUNIT RSVPREF3, ADJUVANT RECONSTITUTED, 0.5 ML, PF Refusal Reason: PATIENT DECISION Patient refuses all immunization(s) in the RSV group Date Documented: 12/19/24 13:06 Sexual Orientation: The patient thinks of their sexual orientation as: Straight or Heterosexual COVID-19 Immunization: Refused Moderna Monovalent COVID-19 vaccine Immunization: COVID-19 (MODERNA), MRNA, LNP-S, PF, 50 MCG/0.5 ML (AGES 12+ YEARS) Refusal Reason: PATIENT DECISION Patient refuses all immunization(s) in the COVID-19 group Date Documented: 12/19/24 13:06 RHS Screen: RHS Screen Session Format: Face to Face Environmental Check Upon inquiry, the individual reports that the environment is safe to proceed. Informed Consent to Screen and Document The individual consents to proceed with screening. The individual consents to documentation of responses. PRIMARY SCREEN: In the past 12 months, how often did a current or former intimate partner (e.g., boyfriend, girlfriend, , , sexual partner): 1. Scream or curse at you Never 2. Insult or talk down to you Never 3. Threaten you with harm Never 4. Physically hurt you Never 5. Force or pressure you to have sexual contact against your will, or when you were unable to say no Never ?? The HITS tool (items 1-4 above) is [place] copyright protected by Oliver Bentley MD, and the user has full rights to use it throughout the [place] system. PRIMARY SCREEN RESULT: The Primary Screen is NEGATIVE. The individual answered never to all forms of IPV above (i.e., answered never to all 5 items) The individual accepts education and/or resources: Yes - Offered verbal universal education about IPV EDUCATION: The individual indicated readiness to learn. Education offered during this session as noted above. The individual indicated understanding by asking relevant questions and making appropriate comments. No barriers to learning were observed or identified. /kellee/ KIM FINNEGAN LPN LPN Signed: 12/19/2024 13:07 KIM FINNEGAN [place]
--- OUTSIDE RECORDS SUMMARY | 2024-12-20 16:37 | XMS_ITS | Continuity of Care Document ---
Author Name [facility] Organization [facility] Care Team Providers Care Manager Body Name Role Phone [facility] Unavailable Unavailable Problems Combined list of problems [...] 35 mm HG [facility] Benign essential hypertension Active Condition [facility] [...] Entered By: Alexandra MARIE Comment: diverticular disease [facility] : Consuelo De Leon MD [facility] Cough Active Condition [facility] Diverticulosis Active Condition [facility] Electrocardiogram abnormal Active Condition Jul 22, 2016 Entered By: Alexandra MARIE Comment: 06/21 echo: aortic stenosis repeat 2-3 yearsAug 01, 2019 Entered By: Alexandra MARIE Comment: stress test 04/28/19 Moderate dyspnea, patient w severe , good exercise toleranceNov 2018 Entered By: Alexandra MARIE Comment: echo 03/24 severe ASNov 2019 Entered By: Alexandra MARIE Comment: Aortic Valve replacment 11/2019Dec 2019 Entered By: Alexandra MARIE Comment: echo 07/31/20 see note 08/08/20 [facility] Exposure to potentially hazardous substance [facility] Gout Active Condition [facility] Hemorrh[facility] Active Condition [facility] Hyperlipidemia Active Condition [facility] outside providers Active Condition p 2014 Entered By: Alexandra MARIE Comment: PCP: Dr. Collado [facility] PAF - Paroxysmal atrial fibrillation Active Condition Dec 19, 2024 Entered By: TRAY KEMP Comment: Followed by Dr. Ferrara, [facility] Pain of right shoulder joint Active Condition [facility] Posttraumatic stress disorder Active Condition [facility] Prediabetes Active Condition [facility] Diagnosis: ICD-10-CM I48.0 Paroxysmal atrial fibrillation Active Diagnosis [facility] Diagnosis: ICD-10-CM I48.91 Unspecified atrial fibrillation [facility] Medications Combined list of outpatient medications from Department of Defense and Veterans Affairs facilities.Medications provided include 1) outpatient medications from the last 15 months, and 2) patient-reported medications. Medication Details Route Status Patient Instructions Prescription Expires Prescription Number Last Dispense Date Ordering Provider Order Date Order Qty Source ALLOPURINOL 300MG TAB TAKE ONE TABLET BY MOUTH DAILY [place] [facility] AMLODIPINE BESYLATE 5MG TAB TAKE ONE TABLET BY MOUTH ONCE DAILY [place]AL [place] 2021 [facility] APIXABAN 5MG TAB TAKE ONE TABLET BY MOUTH TWICE DAILY ORAL ACTIVE JANE FISHER,CYN [place] 2020 [facility] ASPIRIN 81MG TAB,EC TAKE ONE TABLET BY MOUTH DAILY ORAL ACTIVE KISHA-GR NATALIA,CY[place] 2014 [facility] FENOFIBRATE 145MG TAB TAKE ONE TABLET BY MOUTH ONCE DAILY ORAL ACTIVE KISHA-GR NATALIA,CY[place] 2018 [facility] FINASTERIDE 5MG TAB TAKE ONE TABLET BY MOUTH ONCE DAILY ORAL ACTIVE KISHA-GR NATALIA,[facility] [place] 2019 [facility] LOSARTAN POTASSIUM 100MG TAB TAKE ONE TABLET BY MOUTH DAILY ORAL ACTIVE KISHA-GR NATALIA,CYN [place] 2014 [facility] METOPROLOL TARTRATE 50MG TAB TAKE ONE TABLET BY MOUTH TWICE DAILY ORAL ACTIVE KISHA-GR NATALIA,[facility] [place] 2021 [facility] PSYLLIUM PWDR,ORAL TAKE 1 TEASPOON FUL BY MOUTH ONCE DAILY ORAL ACTIVE KISHA-CJ FISHER,[facility] [place] 2017 [facility] SIMVASTATIN 40MG TAB TAKE ONE-HALF TABLET BY MOUTH AT BEDTIME ORAL ACTIVE KISHA-CJ GARDNERY,[facility] [place] 2021 [facility] TAMSULOSIN HCL 0.4MG CAP TAKE 1 CAPSULE BY MOUTH ONCE DAILY ORAL ACTIVE JANE FISHER,[facility] [place] 2017 [facility] Immunizations Combined list of available immunizations from the Department of Defense and Veterans Affairs facilities. Immunization Series Date Given Administered By Site Reaction Lot Number CVX Code Drug Ingot Caster Status Comments Source INFLUENZA, UNSPECIFIED FORMULATION 2022 88 complet ed HISTORICA L INFORMATI ON - FROM PATIENT'S RECALL, [facility] INFLUENZA VACCINE, QUADRIVALENT, ADJUVANTED 2021 JAIMEE MCGOVERN LEFT DELTO ID [id number] 205 complet ed [facility] [place], [facility] IE INFLUENZA, UNSPECIFIED FORMULATION 2020 88 complet ed [facility] COVID-19 ([employer]), MRNA, LNP-S, PF, 30 MCG/0.3 ML DOSE 3 2020 208 complet ed [facility] RECOMBINANT 2 2020 187 complet ed [facility] COVID-19 (PFIZER), MRNA, LNP-S, PF, [...] Date Comments Source SYSTOLIC BLOOD PRESSURE 135 12/19/2024 13:03:38 [facility] DIASTOLIC BLOOD PRESSURE 71 12/19/2024 13:03:38 [facility] PULSE OXIMETRY 97 12/19/2024 13:03:38 [place] WEIGHT 186 12/19/2024 13:03:38 [facility] BMI 26 kg/m2 12/19/2024 13:03:38 [place] HEIGHT 71.5 12/19/2024 13:03:38 [place] TEMPERATURE 97.6 12/19/2024 13:03:38 [facility] 76 12/19/2024 13:03:38 [place] RESPIRATION 19 12/19/2024 13:03:38 [facility] Encounters Combined list of: 1) Encounters from Department of Veterans Affairs facilities going backup to the last 18 months, not all VA inpatient encounters are included; 2) Encounters from the Department of Defense facilities going backup to 280 months. Location Location Details Encounter Type Encounter Number Reason For Visit Attending Provider ADM Date DC Date Status Disposition Source [facility] Outpatient Encounter [id number] 09/08 [facility] OFFICE O/P EST HI 40 MIN [id number] Diagnos is: ICD-10- CM I48.91 Unspeci fied atrial fibrill atANDRE NunezBryant MCKAYKaylie Fili 09/08 [facility] Out[facility] Encounter [id number] 09/08 [facility] En[facility] [id number] 09/08 [facility] En[facility] [id number] 09/10 [facility] Encounter [id number] 06/09 [facility] Encounter [id number] 07/25 [facility] [id number] 09/05 [facility] Encounter [id number] 09/05 [facility] Outpatient Encounter [id number] 09/08 [facility] OFFICE O/P EST HI 40 MIN [id number] Diagnos is: ICD-10- CM I48.0 Paroxys mal atrial fibrill ation KEMP,DA VID A 12/19 [facility] Outpatient Encounter [id number] KEMP,DA VID A 12/19 [facility] Social History Combined list of available smoking, tobacco, and other social history from Department of Defense and Veterans Affairs facilities. Social History Type Response Date Comment Sourc e Tobacco smoking status [facility] VA-TOBACCO NEVER USED CIGARETTES 12/19/2024 [facility] [place] [facility] History of tobacco use MT-TOBACCO NEVER USED OTHER TYPE 12/19/2024 [facility] [place] [facility] History of tobacco use VA-TOBACCO QUIT 15 YRS OR MORE 09/08/2023 [facility] [place] [facility] History of tobacco use VA-TOBACCO FORMER USER 08/25/2022 [facility] History of tobacco use VA-TOBACCO FORMER USER 08/22/2021 [facility] [place] [facility] History of tobacco use VA-TOBACCO FORMER USER 08/02/2020 [facility] [place] [facility] History of tobacco use VA-TOBACCO FORMER USER 07/05/2018 [facility] History of tobacco use QUIT TOBACCO USE > 7 YEARS AGO 07/01/2017 [facility]
== END 2024-12-22 13:09 | disposition home or self-care (01) ==
LOC: HO.HOS 13:54
PROVIDERS: PCP Internal Medicine; Visit Provider Physician Assistant
DX: S43.102A Unspecified dislocation of left acromioclavicular joint, initial encounter (principal)
CPT/HCPCS: 99213; G2211

== ENCOUNTER → 2024-12-20 13:54 | Outpatient (BNVA) | payer MEDICARE, SELFPAY | PROVIDERS: PCP Internal Medicine; Visit Provider Physician Assistant | DX: S43.102A Unspecified dislocation of left acromioclavicular joint, initial encounter (principal) | CPT/HCPCS: 99212 ==

== ENCOUNTER 2025-03-05 14:04 | Outpatient (AMB) | payer MEDICARE, SELFPAY ==
--- OUTSIDE RECORDS SUMMARY | 2024-12-19 09:00 | XMS_ITS | Encounter Summary ---
Author Name [facility] Address [address] [place] [address] Care Team Providers Care Monomer Recovery Operator Name Role Phone TRAY KEMP Primary Care Provider [facility] alex Insurance Providers: All historical and [...] to Policy Cohen HUMAIRA BCBS [facility] MEDICARE SUPPLEMEN DMITRY PSUED O MEDEX BRONZ E Feb 05, 2008 [id number] ANDREW PENDLETON JR PATIENT [place] MEDIC[place] SUPPLEMEN DMITRY MEDEX BRONZ E Feb 05, 2008 [id number] ANDREW PENDLETON JR PATIENT MEDICARE (WNR) MEDICARE (M) PART B Dec 06, 2007 PART B [id number] ANDREW PENDLETON JR PATIENT MEDICARE (WNR) MEDICARE (M) PART B Dec 06, 2007 PART B [id number] Vandana PENDLETON PATIENT MEDICARE (WNR) MEDICARE (M) PART A Apr 06, 2007 PART A [id number] ANDREW PENDLETON JR PATIENT MEDICARE (WNR) MEDICARE (M) PART A Apr 06, 2007 PART A [id number] [phone] ANDREW PENDLETON JR PATIENT Selected Encounter This section includes the information on record at [place] for the Encounter. Date/Time Encounter Type Encounter Description Reason Provider Source Dec 19, 2024 01:00 PM OFFICE O/P EST MOD 30 MIN PRIMARY CARE/MEDICINE ICD-10-CM I48.0 Paroxysmal atrial fibrillation TRAY KEMP Alex Encounter Template Text not used by [place] Assessments - Encounter Diagnoses This section includes the primary and secondary diagnoses documented for the Encounter. Date/Time Primary/Secondary Diagnosis Diagnosis Name Provider Source Feb 19, 2025 12:56 PM PRIMARY Paroxysmal atrial fibrillation TRAY KEMP [facility] Feb 19, 2025 12:56 PM SECONDARY Benign prostatic hyperplasia with lower urinary tract symp TRAY KEMP [facility] 16, 2025 12:56 PM SECONDARY Chronic kidney disease, stage 2 (mild) TRAY KEMP [facility] Feb 19, 2025 12:56 PM SECONDARY Essential (primary) hypertension TRAY KEMP [facility] 16, 2025 12:56 PM SECONDARY Hyperlipidemia, unspecified TRAY KEMP [facility] 16, 2025 12:56 PM SECONDARY Idiopathic chronic gout, left elbow, without tophus (tophi) TRAY KEMP [facility] 16, 2025 12:56 PM SECONDARY Nonrheumatic aortic (valve) stenosis TRAY KEMP [facility] 16, 2025 12:56 PM SECONDARY Post-traumatic stress disorder, unspecified RTAY KEMP [facility] Vital Signs: All taken on the encounter date This section contains inpatient and outpatient Vital Signs collected on the date of the Encounter. Date/Time Temperature Pulse Blood Pressure Respiratory Rate SP02 Pain Height Weight Body Mass Index Source Dec 19, 2024 01:03 PM 97.6 76 135/71 19 97 71.5 186 26 [place] Social History: Smoking Status (Most current) and Tobacco Use (All prior to encounter date) This section includes the most current, and the historical, smoking and tobacco- related health factors from the [place] facility where the Encounter took place. Current Smoking Status This section includes the most current smoking, or tobacco-related health factor, from the [facility] where the Encounter took place. Date/Time Current Smoking Status Comment Facil ity Aug 25, 2022 01:00 PM VA-TOBACCO FORMER USER [facility] Tobacco Use History This section includes a history of the smoking, or tobacco-related health factors, that were collected on or before the date of the Encounter. The data comes from the [place] facility where the Encounter took place. Date/Time Smoking Status/Tobacco Use Comment F acility Aug 25, 2022 01:00 PM VA-TOBACCO QUIT 15 YRS OR MORE [facility] Jul 05, 2018 02:11 PM VA-TOBACCO FORMER USER [facility] Jul 05, 2018 02:11 PM VA-TOBACCO QUIT 5 TO < 15 YRS [facility] Jul 01, 2017 10:41 AM QUIT TOBACCO USE > 7 YEARS AGO [facility] Encounter Notes: All associated encounter notes This section contains the clinical notes associated to the Encounter. Date/Time Encounter Note(s) Provider Source Dec 19, 2024 01:05 PM PRIMARY CARE NURSE PRACTITIONER OUTPATIENT NOTE: LOCAL TITLE: NURSE PRACTITIONER OUTPATIENT NOTE STANDARD TITLE: PRIMARY CARE NURSE PRACTITIONER OUTPATIENT NOTE DATE OF NOTE: DEC 19, 2024@13:05 ENTRY DATE: DEC 19, 2024@13:05:59 AUTHOR: TRAY KEMP COSIGNER: URGENCY: STATUS: COMPLETED PRIMARY CARE VISIT CHE ROSY PENDLETON, is a 84 yo WHITE MALE who presents at the [facility]. TYPE OF VISIT: Face to face 84-year-old with HTN, HLD, CAD s/p CABG 2019, aortic valve stenosis s/p bioprosthetic AVR in 2019, and paroxysmal atrial fibrillation on DOAC presented to the outpatient clinic in regular follow-up. He is comanaged with a community PCP who follows all of his labs and prescribes his medications. He had a fall in July and injured his shoulder. X-ray found high-grade AC separation and he was referred to [facility] where he has follow-up next week. Nuclear stress 06/29/2024 normal with LVEF 62%. TTE in September 2023: LVEF 55 to 60% with grade 2 diastolic dysfunction. He continues to follow with [facility]ology. No recent labs as these are followed by his community PCP. Recent diagnostic studies were reviewed with the as noted. All medications were reconciled during this visit. HEALTHCARE PROVIDERS: Community PCP: Dr. Collado Cardiology: Dr. Ferrara Ortho: [facility] Social Hx: The is and lives with his . He stopped smoking more than 60 years ago. He drinks 1-2 alcoholic beverages/day. No cannabis or illicit substances. 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 He walks daily. 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 08/09/2020 BETSY MARIE outside providers 799.9 05/21/2015 BETSY MARIE H/O: Bilateral cataract extraction 05/21/2015 BETSY MARIE Colonoscopy normal R69. 01/08/2022 BETSY MARIE Benign essential hypertension I10. 06/02/2016 BETSY MARIE Hyperlipidemia E78.5 06/02/2016 BETSY MARIE Gout M1A.0220 08/25/2022 DOM GARCIA Diverticulosis 562.10 05/15/2015 BETSY MARIE Hemorrhoids K64.9 08/25/2022 DOM GARCIA Prediabetes R73.03 08/25/2022 DOM GARCIA Benign prostatic hyperplasia N40.1 08/25/2022 DOM GARCIA VITAL SIGNS: Temperature 97.6 F [36.4 C] (12/19/2024 13:03) Blood Pressure 135/71 (12/19/2024 13:03) Pulse 76 (12/19/2024 13:03) Respiration 19 (12/19/2024 13:03) Pain 1 (08/25/2022 13:46) BMI BMI: 25.6 Weight 186 lb [84.37 kg] (12/19/2024 13:03) Pulse Oximetry 97% (12/19/2024 13:03) ASSISTIVE DEVICES: None REVIEW OF SYSTEMS: CONSTITUTIONAL: No fevers, chills, weight loss/gain ENT: No sore throat, sneezing, congestion, rhinorrhea, anosmia, or ageusia. CARDIOVASCULAR: No chest pain, palpitations, or increased pedal edema RESPIRATORY: No SOB, cough, sputum, wheeze. GASTROINTESTINAL: Denies abd pain, N/V/D. No melena or hematochezia. No tenesmus or constipation. GENITOURINARY: No burning micturition. No urinary frequency or urgency. No nocturia. MUSCULOSKELETAL: No myalgias or arthralgias. PSYCHIATRIC: No new anxiety or depression. No sleep disturbance. NEUROLOGIC: No headaches, dizziness, numbness or tingling in the extremities, or unilateral weakness. EXAMINATION General: Well-appearing older in no obvious distress. Mental Status: Alert and oriented x4. Head: Normocephalic. Eyes: PERRLA. EOMI. Anicteric sclerae. ENT: Moist oral mucosa. Neck: Supple. No thyromegaly or LAD. No bruit appreciated. Lungs: CTA. Normal chest excursion. Eupneic respirations. CV: Heart tones S1, S2. RRR. No M/G/R. No peripheral edema. GI: Abdomen is soft and nontender. No palpable mass. : No CVA tenderness. Ext: No cyanosis or clubbing. No gross deformities. Neuro: CN II through XII grossly intact. Normal speech. Normal gait. Integument: Skin warm and dry. No concerning lesions or rashes. Psych: Normal mood and affect. Normal judgment. ALLERGIES: ========= Patient has answered NKA >> HEALTH MAINTENANCE PREVENTIVE MEDICINE GOALS Advance Directive Screen MH AD Mar 08 Suicide Screen Sep 08 Homelessness/Food Insecurity Screen Sep 08 Depression Screening Sep 08 Falls & Incontinence Screen DUE NOW Tobacco Use Screening Sep 08 Influenza Immunization DUE NOW Medication Reconciliation DUE NOW Td/Tdap Immunization Jun 05 Alcohol Use Screen (AUDIT-C) Sep 08 COVID-19 Immunization DUE NOW RSV Immunization DUE NOW Sexual Orientation Sep 08 RHS Screen DUE NOW (Optional) Whole Health Documentation DUE NOW ASSESSMENT/PLAN: Active problems - Computerized Problem List is the source for the following: Paroxysmal atrial fibrillation: Following with [facility]. He underwent nuclear stress testing 06/29/2024 for exertional dyspnea. Study was normal with LVEF 62%. He denies any palpitations or chest discomfort. Maintained on apixaban for primary risk reduction and metoprolol for ventricular rate control. Posttraumatic stress disorder: Not currently following with . He denies SI/HI. [place] has been educated on how to access Mental Health Services if needed at any time of day or night and advised to seek immediate assistance if he/she ever experiences suicidal or homicidal thoughts by calling 911 or presenting to nearest ER. [place] has been provided with Crisis Hot-Line Number: 6-503-581-TALK (9039). Chronic kidney disease: Unclear if stable as labs are monitored by his community PCP. Not following with nephrology. Will request records from community PCP. Aortic stenosis: Status post bioprosthetic AVR November 2019. Colonoscopy normal colon colonoscopy 01/06/2022 found diverticulosis and internal hemorrhoids. Polyp x 2 with biopsy: Tubular adenoma. Benign essential hypertension: Blood pressure within target range today at 135/71. Continue amlodipine and metoprolol. Discussed heart healthy diet including avoidance of added salt at the table and increased exercise as canseco components of overall CV health. He voiced understanding. Hyperlipidemia: Unclear if stable as labs are followed exclusively by community PCP. Maintained on fenofibrate and simvastatin. Discussed heart healthy diet including reduction of animal fats and increased exercise as canseco components of overall CV health. He voiced understanding. Gout: No flare for over a year. Continue allopurinol prescribed by community PCP. Benign prostatic hyperplasia: No nocturia or LUTS since adding finasteride to tamsulosin. FOLLOW UP: RTC Below & sooner PRN UPCOMING APPOINTMENTS: No data available On the date of the encounter, I spent 40 minutes on some or all of the following: chart review, history, physical examination, treatment planning, education and counselling of the patient/family/caregiver, placing orders, communicating with other health care providers, and documentation in the electronic health record. No barriers; Patient understands and agrees to current treatment plan. If pt has any questions, concerns, or changes in current health status he/she will call or come [facility] the [facility]. Medication Reconciliation: Outpatient: Has the patient been taking medications as documented in the EMLR? YES: The patient has been taking medications as documented in the EMLR. Essential Medication List for Review used to complete this medication reconciliation. INCLUDED IN THIS LIST: Alphabetical list of active outpatient prescriptions dispensed from this [facility] (local) and dispensed from another [facility] or [facility] facility (remote) as well as inpatient orders (local, pending and active), local clinic medications, locally documented non-VA medications, and local prescriptions that have or been discontinued in the past 90 days. - All changes in medications, including all non-VA/Herbal/OTC medications were entered into CPRS. - If there were any medications the patient should no longer take, they were discontinued. - The patient/caregiver was instructed to update this list, discard old lists, and take this list to the next appointment, whether with a VA or non-VA provider. /kellee/ TRAY KEMP NP NURSE PRACTITIONER Signed: 12/19/2024 16:59 TRAY KEMP Dec 14, 2024 01:39 PM ADMINISTRATIVE NOT E: LOCAL TITLE: ADMINISTRATIVE NOTE STANDARD TITLE: ADMINISTRATIVE NOTE DATE OF NOTE: DEC 14, 2024@13:39 ENTRY DATE: DEC 14, 2024@13:39:08 AUTHOR: JHON LANDEROS EXP COSIGNER: URGENCY: STATUS: COMPLETED ADMINISTRATIVE NOTE Has ADDENDA MSA: Please request last office visit and test results from providers below, thank you. Dr. Heaven Jacob [place] Cardiology: Dr. Kennedy [facility] Dr. Ibrahim Urology /kellee/ JHON LANDEROS REGISTERED NURSE Signed: 12/14/2024 13:39 Receipt Acknowledged By: 12/18/2024 09:05 /kellee/ OLGA LIDIA MARKS ADVANCE AERIAL SPRAYER 12/18/2024 ADDENDUM STATUS: COMPLETED THIS FACILITIES MAINTENANCE TECHNICIAN SEND FAX REQ FOR REC'S PER RN REQUEST TO DR COLLADO'S OFFICE [phone] PV CARDIO OFFICE [phone] PV UROLOGY OFFICE [phone] /kellee/ OLGA LIDIA MARKS ADVANCE AERIAL SPRAYER Signed: 12/18/2024 09:05 JHON LANDEROSFIELD
--- NOTE | 2025-03-05 14:10 | MHC.PC.OV ---
Intake Visit Reasons: regarding to cardiology. Intake Note: Telehealth Regarding cardiology issues. Patient c/o weak, light headed and dizzy. Patient also c/o a rash and itch allover body. Fuel Storage Technician Required: No Allergies No Known Allergies Allergy (Verified 03/05/25 14:12) Medication List - Last Reconciled 03/05/25 by Brianna Pandya, [facility]- allopurinol 300 mg PO DAILY amlodipine 10 mg PO BID apixaban (Eliquis) 5 mg PO BID aspirin 81 mg PO DAILY celecoxib (Celebrex) 200 mg PO BID 30 days fenofibrate nanocrystallized 145 mg PO DAILY finasteride 5 mg PO DAILY furosemide 20 mg PO DAILY losartan 100 mg PO DAILY metoprolol succinate ER 100 mg PO DAILY simvastatin 40 mg PO DAILY tamsulosin 0.4 mg PO DAILY Tobacco use date assessed: 03/05/25 Fall risk assessment: 2 + Falls in past year Last assessed Fall Risk: 03/05/25 Dental Screening Dental Screen Date: 03/05/25 Did you have a dental visit in the last 12 months?: Yes Did you have a dental problem in the last 6 months where you did not have access to dental care?: No Was dental information given to patient?: Patient has dentist HPI HPI Comments History of Present Illness Details 84 y/o M with CAD, HTN, severe aortic valve stenosis s/p bioprostethic AVR, PAF on eliquis, HLD, CHF (echo 09/202324 Grade 2 diastolic dysfunction EF 55-60%) s/p CABG TYLER to the LAD, SVG Testin02/13/25 Carotid US Bilat: minimal atherosclerotic plaque , < 50% stenosis Echo ordered and pending Stress test 08/2024 [facility] Specialists: [facility] - visit note from 02/13/25 reviewed. I called the patient, he answered stated he was on his way home wanted me to review his cards records which were handed to me at the same time as the call and then call him back I called 3 times each without answer The last call i left a detailed message letting him know we would arrange for in person visit sooner than june gave info for Walk in in [facility] Time spent was 20 minutes reviewing records, inputting info and trying to connect w/ patient [facility] Medical History (Updated 03/05/25 @ 16:16 by Brianna Pandya, [facility]) Aortic stenosis BPH (benign prostatic hyperplasia) CAD (coronary artery disease) Chronic renal insufficiency Elevated cholesterol Gout History of cardioversion HTN (hypertension) No pertinent family history PAF (paroxysmal atrial fibrillation) Surgical History History of open heart surgery Hx of aortic valve replacement Hx of CABG Hx of cataract extraction Hx of colonoscopy Hx of elbow surgery Social History (Updated 03/05/25 @ 14:25 by Low Null MA) Household Members: Spouse Household Members Other:: - healthy Both parents involved: No Caregiver staying overnight: No Housing: House Are you a primary acute care registered nurse to a significant other at home: No Do you presently have visiting nurse or other home services: No 75 years or older and lives alone: No Alcohol intake: current Alcohol intake frequency: a few times a month Patient Tobacco Use Status: Never used Tobacco e-Cigarette/Vaping Use: Never Used Second Hand Smoke Exposure: No Advance Directives Date on File: 04/18/19 service: No Current occupational status: retired Current occupation: left handed Current occupational exposures/hazards: No Cognitive needs: No Hearing needs: No Vision needs: No Questionnaire PHQ-9 Over the last 2 weeks, how often have you been bothered by any of the following problems? 1. Little interest or pleasure in doing things: not at all 2. Feeling down, depressed, or hopeless: not at all 3. Trouble falling or staying asleep, or sleeping too much: not at all 4. Feeling tired or having little energy: not at all 5. Poor appetite or overeating: not at all 6. Feeling bad about yourself - or that you are a failure or have let yourself or your family down: not at all 7. Trouble concentrating on things, such as reading the newspaper or watching television: not at all 8. Moving or speaking so slowly that other people could have noticed. Or the opposite - being so fidgety or restless that you have been moving around a lot more than usual: not at all 9. Thoughts that you would be better off or of hurting yourself in some way: not at all Total score: 0 Depression Screening Interpretation: Negative Depression Screening Done: Yes 52803 - PHQ-9 Billing: Yes Source: Developed by Drs. Roger Oates, Nayana Quinones, Charly Lerner and colleagues, with an educational david from [employer]. Thrive Questionnaire Date Thrive assessed: 03/05/25 I am a: Patient What is your living situation today?: I have a steady place to live Within the past 12 months, did the food you bought not last and you didn't have the money to get more?: Never true Within the past 12 months, did you worry whether your food would run out before you got money to buy more?: Never true Do you have trouble paying for medicines?: No Do you have trouble getting transportation to medical appointments?: No Do you have trouble paying your heating and electricity bill?: No Do you have trouble taking care of your child, family member or friend?: No Do you have trouble with day-to-day activities such as bathing, preparing meals, shopping, managing finances, etc.?: No Are you currently unemployed and looking for a job?: No Are you interested in more education?: No Please select the resources that you would like help with: None Currently or been in a relationship where the following occur: No concerns reported THRIVE Score: 0 AUDIT C Alcohol Use Questionnaire (AUDIT-C) 1. How often do you have a drink containing alcohol?: Never 3. How often do you have six or more drinks on one occasion?: Never Total Score: 0 Score Reviewed/Action Taken: Yes JUANITA-7 AMB Questionnaire JUANITA-7 Date JUANITA - 7 assessed: 03/05/25 Feeling nervous, anxious, or on edge: 0 = Not at all Not being able to stop or control worryin = Not at all Worrying too much about different things: 0 = Not at all Trouble relaxin = Not at all Being so restless that it is hard to sit still: 0 = Not at all Becoming easily annoyed or irritable: 0 = Not at all Feeling afraid as if something awful might happen: 0 = Not at all Total JUANITA-7 score (0-4 normal; 5-9 mild; 10-14 moderate; 15-21 severe): 0 Source: Developed by Drs. Roger Oates, Charly Musa and colleagues, with an educational david from [employer]. JUANITA-7 Assessment Billing JUANITA-7 Assessment Tool: JUANITA-7 Assessment 84371 Physical exam (Primary Care) Tobacco/Smoking Status: Tobacco use Status Tobacco use date assessed 03/05/25 03/05/25 14:25 Patient Tobacco Use Status Never used Tobacco 03/05/25 14:25 Tobacco use type 03/05/25 14:25 e-Cigarette/Vaping Use Never Used 03/05/25 14:25 Depression Screening Interpretation: Negative Currently or been in a relationship where the following occur: No concerns reported Telehealth Telehealth Telehealth Platform: iVilka Location of provider rendering services: practice address Location of patient: address on file Patient Identification confirmed using: Name, : Yes Telehealth method: voice only Patient verbally consented to treatment: Yes Patient verbally consented to billing insurance company: Yes Patient informed of any privacy concerns related to visit: Yes Minutes spent on Phone/Video with Pt.: 3 Coding Level of Care Code Tele New Pt Level 2 (96973) Complex EM visit Add On G2211 Diagnoses Nonrheumatic aortic (valve) stenosis I35.0 PAF (paroxysmal atrial fibrillation) I48.0 Secondary hypercoagulable state D68.69 Encounter to establish care Z76.89 Additional Codes PHQ-9 - 12279 - PHQ-9 Billing: Yes ([id number]) JUANITA-7 Assessment Billing - JUANITA-7 Assessment Tool: JUANITA-7 Assessment 96441 ([id number]) Assessment & Plan Assessment & Plan (1) Nonrheumatic aortic (valve) stenosis: Code(s): I35.0 - Nonrheumatic aortic (valve) stenosis Category: Medical (2) PAF (paroxysmal atrial fibrillation): Code(s): I48.0 - Paroxysmal atrial fibrillation Category: Medical (3) Secondary hypercoagulable state: Code(s): D68.69 - Other thrombophilia Category: Medical (4) Encounter to establish care: Code(s): Z76.89 - Persons encountering health services in other specified circumstances Plan .
--- OUTSIDE RECORDS SUMMARY | 2025-03-05 14:40 | XMS_ITS | Patient Health Record ---
Author Organization [facility] Address [address] [place] [address] Care Team Providers Care Mobile Phlebotomist Name Role Phone Tono Collado MD Primary Care Provider Christiano Landry Unavailable [phone] Reason For Referral No Information Medications Medication SIG (Take, Route, Frequency, Duration) Notes Start Date End Date Status Losartan Potassium 25 MG 1 tablet Orally Once a day; Duration: 30 day(s) Active Advil 200 MG 1 capsule as needed Orally every 6 hrs 06/14/2013 Active Allopurinol 100 MG 1 tablet Orally Once a day; Duration: 30 day(s) Active Simvastatin 10 MG 1 tablet in the even ing Orally Once a day; Duration: 30 day(s) Active Triamterene 100 MG 1 capsule Orally Onc e a day; Duration: 30 day(s) Active Neomycin Sulfate 500 MG 2 tablets Orally every 6 hrs; Duration: 10 day(s) Active Problems Problem Type SNOMED Code ICD Code Onset Dates Problem Status W/U Status Risk Notes Problem Bursitis (78530171) Bursitis (727.3) Active confirmed Problem Myositis (36310476) Myositis (729.1) Active confirmed Problem Pain in limb (72710792) Pain in Limb (729.5) Active confirmed Problem Plantar fasciitis (219239356) Plantar Fasciitis (728.71) Active confirmed Problem Calcaneal spur (27667554) Calcaneal spur (726.73) Active confirmed Plan Of Treatment No Information Insurance Providers Payer Name Payer Address Payer Phone Subscriber Number Group Number Insured Name Patient Relationship to Insured Coverage Start Date Coverage End Date Medicare [employer] [address] [place] [address] [phone] [id number] August Gamino Self - patient is the insured [employer] [facility] [address] [place] [address] [id number] August Gamino Self - patient is the insured Medical (General) History Medical History History ICD Code Gout high blood pressure measles chicken pox Surgical History Surgery Date(Month/Year) Bone Spurs cataract removal lasik
--- OUTSIDE RECORDS SUMMARY | 2025-03-05 14:40 | XMS_ITS | Clinical Summary ---
Author Organization [facility] Address [address] [place] [address] Phone Care Team Providers Care Syrup Blender Name Role Phone Brianna Pandya Primary Care Provider Allergies No known active allergies Medications baclofen (LIORESAL) 5 mg tablet Take 1 Tablet by mouth 3 times daily. Active losartan (COZAAR) 100 mg tablet Take 1 tablet (100 mg total) by mouth 1 (one) time each day. 4 Active tamsulosin (FLOMAX) 0.4 mg [...] EVERY DAY 90 tablet 1 5 Active acetaminophen (TYLENOL) 500 mg tablet Take 1 tablet (500 mg total) by mouth every 6 (six) hours if needed for mild pain. Active Eliquis 5 mg tablet TAKE 1 TABLET TWICE DAILY 180 tablet 3 5 Active apixaban (Eliquis) 5 mg tablet Take 1 tablet (5 mg total) by mouth 2 (two) times a day. 4 03/01/20 25 Discontinued Active Problems Problem Noted Date [...] & Plan: We will update surveillance echocardiogram. Assessment & Plan (02/05/2025 3:24 PM EDT): He does endorse increased fatigue, shortness of breath and decreased activity tolerance with episodes of lightheadedness. I would like to update his echocardiogram to further evaluate for any progression in his gradients of his aortic valve. He does appear to be euvolemic upon exam today. Orders: Transthoracic echocardiogram (TTE) complete with PRN contrast, bubble, strain, and 3D order panel; Future perflutren lipid microsphere (DEFINITY) 1.3 mL in sodium chloride 0.9% 8.7 mL injection Coronary artery disease invo lving coronary bypass graft of [place] heart without angina pectoris 10/08/2021 Overview (07/25/2024): [...] 10 minutes does not resolve with rest. Assessment & Plan (02/05/2025 3:24 PM EDT): Recent stress testing in August 2024 without evidence of ischemia. He will continue on metoprolol, statin, fenofibrate. Instructed to call 911 or go to [...] engage in routine aerobic exercise as tolerated. Assessment & Plan (02/05/2025 3:24 PM EDT): Mildly elevated today with a reading of 144/90. He will continue on his current dose of amlodipine 10 mg and losartan 100 mg as well as metoprolol XL 100 mg. Educated on risks and benefits of continuing with anticoagulation including increased risk for hemorrhage and decreased risk for stroke. Encouraged to seek emergent medical attention should the patient sustain a fall involving a head strike. The patient understands these risks and agrees to continue. Hyperlipidemia 10/08/2021 Overview (07/25/2024): Last Assessment & [...] anticoagulated on Eliquis for stroke reduction. His [id number]-[id number] score is 3 for age greater than 75 and hypertension. Educated on risks and benefits of continuing with anticoagulation including increased risk for hemorrhage and decreased risk for stroke. Encouraged to seek emergent medical attention should the patient sustain a fall involving a head strike. The patient understands these risks and agrees to continue. Assessment & Plan (02/05/2025 3:24 PM EDT): Denies perception of recurrence of arrhythmia. Continues to be anticoagulated on Eliquis for stroke reduction. Educated on risks and benefits of continuing with anticoagulation including increased risk for hemorrhage and decreased risk for stroke. Encouraged to seek emergent medical attention should the patient sustain a fall involving a head strike. The patient understands these risks and agrees to continue. He will continue his current dose of metoprolol succinate 100 mg. Encounters Date Type Department Care Team Description 03/05/2025 Telephone [facility] Cardiology [facility] - [address] [place] [address] Jessica Bradley NP records 02/28/2025 Telephone [facility] - [address] [place] [address] Jessica Bradley NP 02/13/2025 12:45 PM EDT Ancillary Procedure [facility] - [address] [place] [address] Dizziness 02/05/2025 2:40 PM EDT Office Visit [facility] - [address] [place] [address] Jessica Bradley NP Nonrheumatic aortic valve stenosis (Primary Dx); Dizziness; Coronary artery disease involving coronary bypass graft of [place] heart without angina pectoris; Paroxysmal atrial fibrillation (CMS/HCC V24, CMS/HCC V28); Essential hypertension 12/18/2024 Telephone [facility] Cardiology [facility] [address] [place] [address] Tono Collado MD Medical Records from Last 3 Months Social History Tobacco [...] Sign Reading Time Taken Comments Blood Pressure 144/90 02/05/2025 2:51 PM EDT Pulse 72 02/05/2025 2:51 PM EDT Temperature - - Respiratory Rate - - Oxygen Saturation 98% 02/05/2025 2:51 PM EDT Inhaled Oxygen Concentration - - Weight 87.1 kg (192 lb) 02/05/2025 2:51 PM EDT Height 181.6 cm (5' 11.5 ) 02/05/2025 2:51 PM ED T Body Mass Index 26.41 02/05/2025 2:51 PM EDT Plan of Treatment Upcoming Encounters Date Type Department Care Team (Late st Contact Info) Description 05/22/2025 11:00 AM EDT Ancillary Procedure [facility] [address] [place] [address] Health Maintenance Due Date Last Done Comments RSV Immunization Adult Patients (1 - 1-dose 75+ series) 2017 Depression Screening 08/09/2022 Falls Risk Assessment 08/09/2022 Medicare Annual Wellness Visit 08/09/2022 Social Influencers of Health Screening 08/09/2022 Hypertension/CHF/CAD Annual BMP Blood Test 08/15/2022 COVID-19 Vaccine ( season) 2024 06/24/2021, 11/01/2020, 10/09/2020 DTaP,Tdap,and Td Vaccines (2 - Tdap) 06/05/2025 [...] Procedure Name Priority Date/Time Associated Diagnosis Comments VAS US DUPLEX CAROTID BILATERAL Routine 02/13/2025 1:00 PM EDT Dizziness LIPID PANEL Routine 05/22/2022 from Last 3 Months or Most Recently Relevant to Health Maintenance Results * Vascular US duplex carotid bilateral (02/13/2025 1:00 PM EDT) Left CCA dist reyes 18 cm/s CV VAS LAB Left CCA dist sys 79 cm/s CV VAS LAB LEFT COMMON CAROTID ARTERY MID D 17 cm/s CV VAS LAB LEFT COMMON CAROTID ARTERY MID S 85 cm/s CV VAS LAB Left CCA prox reyes 17 cm/s CV VAS LAB Left CCA prox sys 100 cm/s CV VAS LAB LEFT EXTERNAL CAROTID ARTERY D 12 cm/s CV VAS LAB Left ECA sys 83 cm/s CV VAS LAB Left ICA/CCA sys 1.00 no units CV VAS LAB Left ICA dist reyes 15 cm/s CV VAS LAB Left ICA dist sys 64 cm/s CV VAS LAB Left ICA mid reyes 15 cm/s CV VAS LAB Left ICA mid sys 76 cm/s CV VAS LAB Left ICA prox reyes 18 cm/s CV VAS LAB Left ICA prox sys 78 cm/s CV VAS LAB Left vertebral sys 41 cm/s CV VAS LAB Right CCA dist reyes 10 cm/s CV VAS LAB Right cca dist sys 68 cm/s CV VAS LAB RIGHT COMMON CAROTID ARTERY MID D 10 cm/s CV VAS LAB RIGHT COMMON CAROTID ARTERY MID S 70 cm/s CV VAS LAB Right CCA prox reyes 13 cm/s CV VAS LAB Right CCA prox sys 75 cm/s CV VAS LAB RIGHT EXTERNAL CAROTID ARTERY D 8 cm/s CV VAS LAB Right eca sys 65 cm/s CV VAS LAB Right ICA/CCA sys 1.20 no units CV VAS LAB Right ICA dist reyes 25 cm/s CV VAS LAB Right ICA dist sys 84 cm/s CV VAS LAB Right ICA mid reyes 16 cm/s CV VAS LAB Right ICA mid sys 69 cm/s CV VAS LAB Right ICA prox reyes 17 cm/s CV VAS LAB Right ICA prox sys 75 cm/s CV VAS LAB Right vertebral sys 40 cm/s CV VAS LAB Left Prox Subclavian PSV 78 cm/s CV VAS LAB Right Prox Subclavian PSV 97 cm/s CV VAS LAB Right Bulb PSV 56 cm/s CV VAS LAB Right Bulb EDV 16 cm/s CV VAS LAB Right arm BP 127 mmHg CV VAS LAB Left arm BP 134 mmHg CV VAS LAB Left Bulb PSV 75 cm/s CV VAS LAB Left Bulb EDV 12 cm/s CV VAS LAB Anatomical Region Laterality Modality Vascular, Abdomen Ultrasound Narrative 02/17/2025 1:57 PM EDT RIGHT. 1. There is minimal atherosclerotic plaque in the right carotid system as noted above. 2. There is a < 50% stenosis in the right internal carotid artery based on Doppler velocity. 3. The subclavian artery has normal Doppler flow velocity. 4. The vertebral artery has normal Doppler flow patterns with antegrade flow. LEFT. 1. There is minimal atherosclerotic plaque in the left carotid system as noted above. 2. There is a < 50% stenosis in the left internal carotid artery based on Doppler velocity. 3. The subclavian artery has normal Doppler flow velocity. 4. The vertebral artery has normal Doppler flow patterns with antegrade flow. Interpretation was done according to the [place] Symptomatic Carotid Endarterectomy Trial (NASCET) criteria and the Consensus Panel Grayscale and Doppler Ultrasound criteria for diagnosis of internal carotid artery stenosis. Please note that there are no clear criteria validated for the common carotid artery stenosis. Right Carotid There is evidence of intimal thickening in the CCA. The bifurcation has mild heterogeneous plaque. The ICA has minimal heterogeneous plaque. The ECA has minimal heterogeneous plaque. The subclavian artery waveforms are triphasic. There is normal color filling visualized. Vertebral flow is antegrade. Left Carotid There is evidence of intimal thickening in the CCA. The bifurcation has mild heterogeneous plaque. The ICA has minimal heterogeneous plaque. The ECA has minimal plaque. Vertebral flow is antegrade. It Security Manager Details A hong scale, color and doppler analysis ultrasound was performed. During the study longitudinal and transverse views were obtained. Continuous wave doppler and pulsed wave doppler was performed. Overall the study quality was good. Jessica Bradley NP CV VASCULAR PROCEDURES Final Result * Lipid panel (05/22/2022) Triglycerides 157 mg/dL Cholesterol 181 mg/dL HDL 57 mg/dL Blood Venous blood specimen / Unknown Historical Provider LAB BLOOD ORDERABLES Libby l Result from Last 3 Months or Most Recently Relevant to Health Maintenance Insurance [facility] MEDICARE Care Teams Syrup Blender Relationship Specialty Start Date End Date Brianna Pandya FNP [address] [place] [address] [place] [address] PCP - General Nurse Practitioner 03/01/25
== END 2025-03-05 16:39 | disposition home or self-care (01) ==
LOC: HO.HMCFM 14:04
PROVIDERS: PCP Internal Medicine; Visit Provider Nurse Practitioner Family
DX: I35.0 Nonrheumatic aortic (valve) stenosis (principal); I48.0 Paroxysmal atrial fibrillation; D68.69 Other thrombophilia; Z76.89 Persons encountering health services in other specified circumstances

== ENCOUNTER → 2025-03-05 14:04 | Outpatient (BNVA) | payer MEDICARE, SELFPAY | PROVIDERS: PCP Internal Medicine; Visit Provider Nurse Practitioner Family | DX: I35.0 Nonrheumatic aortic (valve) stenosis (principal); I48.0 Paroxysmal atrial fibrillation; D68.69 Other thrombophilia; Z76.89 Persons encountering health services in other specified circumstances | CPT/HCPCS: 96127 ==

== ENCOUNTER 2025-03-06 11:29 | Outpatient (AMB) | payer MEDICARE, SELFPAY ==
--- NOTE | 2025-03-06 11:31 | MHC.OFFWIV ---
Intake Vital Signs 03/06/25 11:32 Height 5 ft 11.5 in Weight 192 lb 2 oz BMI 26.4 BP 116/58 L Blood Pressure Location Rt brachial Position Sitting Pulse 82 Pulse Source Pulse Oximeter Temp 97.6 F Temp Source Oral Pulse Oximetry (%) 98 Oxygen Delivery Method Room Air Intake Visit Reasons: EP Rash all over Intake Note: pt presents with an itchy, red rash that starting on his ankles and has been spreading to legs, arms and trunk x2 months. Patient Tobacco Use Status: Never used Tobacco Allergies No Known Allergies Allergy (Verified 03/06/25 11:34) Do you need a note to return to daycare/school/sports/work: No HPI HPI Comments History of Present Illness Details History - The patient is an 84-year-old male presenting with an itchy rash for 2 months. - The rash is raised, bumpy, and very itchy, with no new medications, foods, or detergents introduced recently. - The rash has been present for approximately two months, initially noticed by the patient's partner. - The patient has seven dogs, which may have been a vector for the poison katelin oils. - The patient has a history of arthritis, particularly in the lower back. Physical Exam General: Cooperative, healthy appearing, comfortable, no acute distress and well developed Orientation: Patient oriented x3 Limitations: No limitations Head: Normal to inspection Ears: Hearing grossly normal bilaterally Nose: Normal External nose present Face and sinus: Normal facial exam Eyes: Appearance normal, both eyes and all related structures Neck: Normal visual inspection and Yes full ROM Respiratory: Normal respiratory effort and able to speak in complete sentences. Skin: raised papules in small clusters on bilateral UE and LE, most scabbed over however L AC has fluid filled blisters in 2 small clusters. Neuro: Patient oriented x3 [facility] Medical History (Updated 03/06/25 @ 12:02 by Leonela Carlos PA-C) No pertinent family history History of cardioversion PAF (paroxysmal atrial fibrillation) CAD (coronary artery disease) Aortic stenosis Chronic renal insufficiency Gout BPH (benign prostatic hyperplasia) Elevated cholesterol HTN (hypertension) Surgical History Hx of aortic valve replacement Hx of CABG Hx of cataract extraction Hx of elbow surgery History of open heart surgery Hx of colonoscopy Social History (Updated 03/05/25 @ 14:25 by Low [place] MA) Household Members: Spouse Household Members Other:: - healthy Both parents involved: No Caregiver staying overnight: No Housing: House Are you a primary customer care team coach to a significant other at home: No Do you presently have visiting nurse or other home services: No 75 years or older and lives alone: No Alcohol intake: current Alcohol intake frequency: a few times a month Patient Tobacco Use Status: Never used Tobacco e-Cigarette/Vaping Use: Never Used Second Hand Smoke Exposure: No Advance Directives Date on File: 04/18/19 service: No Current occupational status: retired Current occupation: left handed Current occupational exposures/hazards: No Cognitive needs: No Hearing needs: No Vision needs: No Review of Systems Const All systems reviewed & are unremarkable except as noted in HPI and below Physical Exam Vital Signs: Last Vital Signs Temp 97.6 F 03/06/25 11:32 Pulse 82 03/06/25 11:32 BP 116/58 L 03/06/25 11:32 Pulse Ox 98 03/06/25 11:32 Oxygen Delivery Method Room Air 03/06/25 11:32 BMI result Body Mass Index 26.4 Assessment & Plan Assessment & Plan (1) Contact dermatitis: Code(s): L25.9 - Unspecified contact dermatitis, unspecified cause Qualifiers: Contact dermatitis type: allergic Contact dermatitis trigger: non-food plants Qualified Code(s): L23.7 - Allergic contact dermatitis due to plants, except food Plan: Patient was informed and verbally consented to the use of an ambient scribe for clinic note documentation during this visit. 1. Contact Dermatitis Due To Poison Katelin Exposure - Possibly contacted from 7 dogs. - Prescribed an eight-day tapering course of prednisone to reduce inflammation and itching. - Recommended the use of Tecnu wash to remove poison katelin oils from the skin and prevent further spread. - Advised to wash all clothing and bedding to eliminate residual oils. - Suggested taking Benadryl at night to alleviate itching and aid sleep. Medications: New prednisone take 4 tablets on days 1-2, take 3 tablets on days 3-4, take 2 tablets on days 5-6, take 1 tablet on days 7-8. 10 mg PO DIRECTED 20 tabs 0RF Coding Level of Care Code Est Pt Level 3 (64004) Diagnoses Allergic contact dermatitis due to plants, except food L23.7 Contact dermatitis type: allergic Contact dermatitis trigger: non-food plants
[2025-03-06 11:32] VITALS: BP 116/58; PULSE 82; TEMP 36.4; O2SAT 98; BMI 26.4
--- OUTSIDE RECORDS SUMMARY | 2025-03-06 12:43 | XMS_ITS | Clinical Summary ---
Author Organization [facility] Address [address] [place] [address] Phone Care Team Providers Care Director Of Research Center Name Role Phone Brianna Pandya Primary Care [...] disease invo lving coronary bypass graft of [place] heart without angina pectoris 10/08/2021 Overview (07/25/2024): [...] anticoagulated on Eliquis for stroke reduction. His [id number] score is 3 for age greater than [...] Type Department Care Team Description 03/05/2025 Telephone [facility] Cardiology [facility] - [address] [place] [address] Jessica Bradley NP records 02/28/2025 Telephone [facility] - [address] [place] [address] Jessica Bradley NP 02/13/2025 12:45 PM EDT Ancillary Procedure [facility] - [address] [place] [address] Dizziness 02/05/2025 2:40 PM EDT Office Visit [facility] - [address] [place] [address] Jessica Bradley NP Nonrheumatic aortic valve stenosis (Primary Dx); Dizziness; Coronary artery disease involving coronary bypass graft of [place] heart without angina pectoris; Paroxysmal atrial fibrillation (CMS/HCC V24, CMS/HCC V28); Essential hypertension 12/18/2024 Telephone [facility]iology [facility] [address] [place] [address] Tono Collado MD Medical Records from Last [...] Description 05/22/2025 11:00 AM EDT Ancillary Procedure [facility] - [address] [place] [address] Health Maintenance Due Date Last [...] Interpretation was done according to the [place] Symptomatic Carotid Endarterectomy Trial (NASCET) criteria and [...] has minimal plaque. Vertebral flow is antegrade. Tire Service Technician Details A hong scale, color and doppler [...] Most Recently Relevant to Health Maintenance Insurance [facility] MEDICARE Care Teams Director Of Research Center Relationship Specialty Start Date End Date Brianna Pandya FNP [address] [place] [address] [place] [address] PCP - General Nurse Practitioner 03/01/25
--- OUTSIDE RECORDS SUMMARY | 2025-03-06 12:43 | XMS_ITS | Patient Health Record ---
Author Organization [facility] Address [address] [place] [address] Care Team Providers Care Collision Worker Name Role Phone Tono Collado MD Primary Care Provider Christiano [place] Unavailable [phone] Reason For Referral No Information Medications Medication [...] Status W/U Status Risk Notes Problem Bursitis (61451812) Bursitis (727.3) Active confirmed Problem Myositis (68467574) Myositis (729.1) Active confirmed Problem Pain in limb (47564451) Pain in Limb (729.5) Active confirmed Problem Plantar fasciitis (837540946) Plantar Fasciitis (728.71) Active confirmed Problem Calcaneal spur (49256849) Calcaneal spur (726.73) Active confirmed Plan Of Treatment No Information Insurance Providers Payer Name Payer Address Payer Phone Subscriber Number Group Number Insured Name Patient Relationship to Insured Coverage Start Date Coverage End Date Medicare National Govt Svcs Inc [address] [place] [address] [id number] August Gamino Self - patient is the insured [employer] [facility] [address] [place] [address] [id number] 7 August Gamino Self - patient is the insured Medical (General) History Medical History History ICD Code Gout high blood pressure measles chicken pox Surgical History Surgery Date(Month/Year) Bone Spurs cataract removal lasik
== END 2025-03-06 12:01 | disposition home or self-care (01) ==
PROVIDERS: PCP Internal Medicine; Referring Provider Nurse Practitioner Family; Visit Provider Physician Assistant
DX: L23.7 Allergic contact dermatitis due to plants, except food (principal)

== ENCOUNTER → 2025-03-06 11:29 | Outpatient (BNVA) | payer MEDICARE, SELFPAY | PROVIDERS: PCP Internal Medicine; Visit Provider Physician Assistant | DX: L23.7 Allergic contact dermatitis due to plants, except food (principal) | CPT/HCPCS: 99212 ==

== ENCOUNTER 2025-03-22 11:31 | Outpatient (AMB) | payer MEDICARE, SELFPAY ==
[2025-03-22 11:47] VITALS: BP 137/72; PULSE 86; TEMP 36.9; O2SAT 98; BMI 26.3
--- NOTE | 2025-03-22 11:47 | MHC.OFFWIV ---
Intake Vital Signs 03/22/25 11:47 Height 5 ft 11.5 in Weight 191 lb 8 oz BMI 26.3 BP 137/72 Blood Pressure Location Lt brachial Position Sitting Pulse 86 Pulse Source Pulse Oximeter Temp 98.4 F Temp Source Oral Pulse Oximetry (%) 98 Oxygen Delivery Method Room Air Intake Visit Reasons: EP-body itching Patient Tobacco Use Status: Never used Tobacco Ring Cutter Lathe Operator Required: No Allergies No Known Allergies Allergy (Verified 03/22/25 11:52) Do you need a note to return to daycare/school/sports/work: No HPI HPI Comments History of Present Illness Details 84 y/o Male patient who presents to the walk in clinic with c/o Rash and itching all over his body for 2 months now. He was recently seen here for similar concerns and was diagnosed with Contact Dermatitis. He was prescribed Prednisone Taper with some relief, but the rash was not resolved. He has been applying Benadryl and Cortisone Creams with no relief. [facility] Medical History (Updated 03/22/25 @ 12:09 by Nohemi Maguire NP) Rash and nonspecific skin eruption No pertinent family history History of cardioversion PAF (paroxysmal atrial fibrillation) CAD (coronary artery disease) Aortic stenosis Chronic renal insufficiency Gout BPH (benign prostatic hyperplasia) Elevated cholesterol HTN (hypertension) Surgical History Hx of aortic valve replacement Hx of CABG Hx of cataract extraction Hx of elbow surgery History of open heart surgery Hx of colonoscopy Social History (Updated 03/05/25 @ 14:25 by Low [place] MA) Household Members: Spouse Household Members Other:: - healthy Both parents involved: No Caregiver staying overnight: No Housing: House Are you a primary animal care attendant to a significant other at home: No Do you presently have visiting nurse or other home services: No 75 years or older and lives alone: No Alcohol intake: current Alcohol intake frequency: a few times a month Patient Tobacco Use Status: Never used Tobacco e-Cigarette/Vaping Use: Never Used Second Hand Smoke Exposure: No Advance Directives Date on File: 04/18/19 service: No Current occupational status: retired Current occupation: left handed Current occupational exposures/hazards: No Cognitive needs: No Hearing needs: No Vision needs: No Review of Systems Const All systems reviewed & are unremarkable except as noted in HPI and below Physical Exam Vital Signs: Last Vital Signs Temp 98.4 F 03/22/25 11:47 Pulse 86 03/22/25 11:47 BP 137/72 03/22/25 11:47 Pulse Ox 98 03/22/25 11:47 Oxygen Delivery Method Room Air 03/22/25 11:47 BMI result Body Mass Index 26.3 Const General: no acute distress Nutritional Appearance: well nourished Orientation/consciousness: patient oriented x3 Skin Other: Erythematous Hives, covering Neck, chest, torso, back, Upper and lower extremities. General skin exam: dry skin, ecchymosis (Upper extremities.) and erythema Neuro General: patient oriented x3, gait normal and moves all extremities Psych Speech and movement: Normal speech and movement present Assessment & Plan Assessment & Plan (1) Rash and nonspecific skin eruption: Code(s): R21 - Rash and other nonspecific skin eruption Plan: DDx's: Eczema vs Contact Dermatitis vs Hives. Ordered Small dose of oral Prednisone 20 mg for 10 days. Ordered Prednisone Topical cream for 2 weeks Will refer to Dermatology Orders: Referrals Dermatology Referral R21 - Rash and other nonspecific skin eruption Medications: New betamethasone dipropionate 0.05% 1 appl topical BID 45 grams 1RF 14 days R21 - Rash and other nonspecific skin eruption prednisone 20 mg PO DAILY 10 tabs 0RF R21 - Rash and other nonspecific skin eruption Coding Level of Care Code Est Pt Level 4 (52676) Diagnoses Rash and nonspecific skin eruption R21 Time Spent (min) 20
--- OUTSIDE RECORDS SUMMARY | 2025-03-22 12:19 | XMS_ITS | Patient Health Record ---
Author Organization [facility] Address [address] [place] [address] Care Team Providers Care Experimental Assembler Name Role Phone Tono Collado MD Primary Care Provider Christiano Landry Unavailable [phone] Reason For Referral No Information Medications Medication [...] Status W/U Status Risk Notes Problem Bursitis (13119506) Bursitis (727.3) Active confirmed Problem Myositis (54827025) Myositis (729.1) Active confirmed Problem Pain in limb (80931489) Pain in Limb (729.5) Active confirmed Problem Plantar fasciitis (693712452) Plantar Fasciitis (728.71) Active confirmed Problem Calcaneal spur (49546879) Calcaneal spur (726.73) Active confirmed Plan Of Treatment No Information Insurance Providers Payer Name Payer Address Payer Phone Subscriber Number Group Number Insured Name Patient Relationship to Insured Coverage Start Date Coverage End Date Medicare National Govt Svcs Inc [address] [place] [address] [phone] [id number] August Gamino Self - patient is the insured [employer] [facility] [address] [place] [address] [phone] [id number] 7 August Gamino Self - patient is the insured Medical (General) History Medical History History ICD Code Gout high blood pressure measles chicken pox Surgical History Surgery Date(Month/Year) Bone Spurs cataract removal lasik
--- OUTSIDE RECORDS SUMMARY | 2025-03-22 12:19 | XMS_ITS | Encounter Summary ---
Author Organization [facility] Address [address] [place] [address] Care Team Providers Care Statistical Technician Name Role Phone Brianna Pandya Primary Care Provider Reason for Visit * Reason Onset Date Comments Procedure 03/16/2025 RAS 8.4.25 Encounter Details Date Type Department Care Team ([facility] st Contact Info) Description 03/16/2025 Telephone [facility] - [facility] [address] [facility] [address] [place] [id number] Gigi Ferrara MD [address] [facility] [address] [place] [address] Procedure (RAS 8.4.25) Social History Tobacco Use Types Packs/Day Years Used Date Smoking Tobacco: Former Smokeless Tobacco: Never Alcohol Use Standard Drinks/Week Comments Yes 0 (1 standard drink = 0.6 oz pur e alcohol) Sex and Gender Information Value Date Recorded Sex Assigned at Not on file Legal Sex Male 5:31 AM EST Gender Identity Not on file Sexual Orientation Not on file documented as of this encounter Progress Notes * Brock Bergman - 03/20/2025 8:42 AM EDT Spoke with patient about procedure. Scheduled on 04.09.[address] Ferrara at [facility] at 130pm Mailing packet to patient today Packet mailed to patient includes instructions with medications, follow-up, lab orders, pre/post procedural care, my direct number and pamphlet for procedure Confirmed address on file Arrival time 1230pm Bloodwork to be done within 30 days of and or at least a week before procedure at any lab of choice, *[facility], [facility] or [facility] ect* (Labs are not fasting) - ATTACHED TO PACKET (3 papers stapled together) Medication instructions are to hold: continue all medications Packet instructs the patient if they start any new medications to call the office. It may need special instructions to avoid any cancellations You can take all your regular morning medications with some water These instructions are given verbal and written and understood Patient aware if they do NOT follow these instructions or show up to procedure they will have to berescheduled to next available which could take up to 6 to 10 weeks. Patient will have to be fasting from midnight night before procedure. Patient made aware that they will need to make arrangements for transportation to procedure and upon discharge at the hospital - no ride will means they will cancel procedure Patient is to report to [facility] to the 3rd floor - Elevator near Patient Registration Patient agreed to all instructions and date, time and location above via phone Notified [facility] Scheduling Dept * Brock Bergman - 03/20/2025 8:21 AM EDT Images from the original note were not included. JULIET Norwood I spoke to the patient regarding the results of his echocardiogram and the recommendation to move forward the RAS. The patient does agree to this procedure. Can we please get the patient scheduled for RAS to be performed by Dr. Ferrara to further evaluate for aortic valve prosthesis stenosis. * Jessica Bradley NP - 03/19/2025 1:16 PM EDT I spoke to the patient, his and his daughter regarding RAS and the results of his echocardiogram which revealed potential prosthetic valve stenosis as well as a mildly reduced LVEF. They are willing to move forward. I just wanted to follow-up and make sure that we can get this scheduled with Dr. Ferrara in the upcoming few weeks. The family knows to await your call. * Tessa Ramirez - 03/19/2025 10:49 AM EDT Patient is returning your call. He can be reached at [phone]. * Jessica Bradley NP - 03/16/2025 3:45 PM EDT Returned patient's phone call. Left voicemail to have him return my call. * Mo Parikh - 03/16/2025 1:11 PM EDT August would like a call back with Jessica per their conversation yesterday under ras 03/12/25 and have what was said repeated to him since he didn't write it down. documented in this encounter Plan of Treatment Upcoming Encounters Date Type Department Care Team (Late st Contact Info) Description 04/09/2025 1:30 PM EDT Appointment [facility] Cardiac Molecular Spectroscopist [address] [place] [phone] Gigi Ferrara MD [address] [address] Scheduled Orders Name Type Priority Associated Diagnoses Orde r Schedule Complete blood count Lab Routine Nonrheumatic aortic valve stenosis 1 Occurrences starting 03/20/2025 until 03/20/2026 Prothrombin time with INR Lab Routine Nonrheumatic aortic valve stenosis 1 Occurrences starting 03/20/2025 until 03/20/2026 Basic metabolic panel Lab Routine Nonrheumatic aortic valve stenosis 1 Occurrences starting 03/20/2025 until 03/20/2026 documented as of this encounter Visit Diagnoses Diagnosis Nonrheumatic aortic valve stenosis- Primary documented in this encounter Care Teams Statistical Technician Relationship Specialty Start Date End Date Brianna Pandya FNP [address] [place] [address] [place] [address] PCP - General Nurse Practitioner 03/01/25 documented as of this encounter
== END 2025-03-22 12:13 | disposition home or self-care (01) ==
PROVIDERS: PCP Nurse Practitioner Family; Visit Provider Nurse Practitioner Family
DX: R21 Rash and other nonspecific skin eruption (principal)

== ENCOUNTER → 2025-03-22 11:31 | Outpatient (BNVA) | payer MEDICARE, SELFPAY | PROVIDERS: PCP Nurse Practitioner Family; Visit Provider Nurse Practitioner Family | DX: R21 Rash and other nonspecific skin eruption (principal) | CPT/HCPCS: 99212 ==

== ENCOUNTER 2025-03-28 10:00 | Outpatient (AMB) | payer MEDICARE, SELFPAY ==
--- NOTE | 2025-03-28 10:02 | MHC.PC.OV ---
Vital Signs 03/28/25 10:11 03/28/25 10:44 Height 5 ft 11.5 in Weight 194 lb 8 oz BMI 26.7 BP 146/78 H 130/64 Blood Pressure Location Lt brachial Rt brachial Position Sitting Sitting Respiration 13 Pulse 87 Pulse Source Pulse Oximeter Temp 97.2 F Temp Source Oral Pulse Oximetry (%) 98 Oxygen Delivery Method Room Air Intake Visit Reasons: Est. Care / Dr. Collado pt. Intake Note: New patient to establish care. Belt Sander Required: No Allergies No Known Allergies Allergy (Verified 03/28/25 10:34) Medication List - Last Reconciled 03/28/25 by Brianna Pandya, [facility]- allopurinol 300 mg PO DAILY amlodipine 5 mg PO ONCE apixaban (Eliquis) 5 mg PO BID betamethasone dipropionate 0.05% 1 appl topical BID 14 days fenofibrate nanocrystallized 145 mg PO DAILY finasteride 5 mg PO DAILY furosemide 20 mg PO DAILY losartan 100 mg PO DAILY metoprolol succinate ER 100 mg PO DAILY prednisone 20 mg PO DAILY simvastatin 40 mg PO DAILY tamsulosin 0.4 mg PO DAILY Tobacco use date assessed: 03/28/25 Fall risk assessment: 2 + Falls in past year Last assessed Fall Risk: 03/28/25 Dental Screening Dental Screen Date: 03/28/25 Did you have a dental visit in the last 12 months?: Yes Did you have a dental problem in the last 6 months where you did not have access to dental care?: No Was dental information given to patient?: Patient has dentist HPI HPI Comments History of Present Illness Details 'Mahesh' 84 y/o M with CAD, HTN, severe aortic valve stenosis s/p bioprostethic AVR, PAF on eliquis, HLD, CHF (echo 09/202324 Grade 2 diastolic dysfunction EF 55-60%), multiple falls, BPH with urinary retention, gout, DM2, anemia s/p CABG TYLER to the LAD, SVG, hemorrhoidectomy, bilat cataract surgery Fhx: Mom 64, Dad 62, 1 sister, 3 children (2 girls 1 boy) Social: ( Etta), 2 dtrs Michelle and Alesha Testin02/13/25 Carotid US Bilat: minimal atherosclerotic plaque , < 50% stenosis Echo ordered and pending Stress test 08/2024 [facility] [address] Dr Dunlap repeat 3-5 years Specialists: [facility] - visit note from 02/13/25 reviewed. Derm ? malignancy on back has appt for removal w/ [facility] [place] 07/[facility]24, visit q 6 months History of Present Illness - The patient is an 84-year-old male presenting to [facility] - Previous PCP Dr Collado, records rec'd and reviewed along w/ Cards records - CC: dizziness and recurrent falls. - Lightheadedness occurs unpredictably. - Falls have resulted in orthopedic injuries, including dislocated L shoulder and hip inj. His L shoulder feels fine; does not want to see Ortho. Does not want to do PT for falls. - Reduced confidence in balance, especially on uneven surfaces. - Scheduled for transesophageal echocardiogra 04/09/25 - Cardiovascular history includes coronary artery disease and paroxysmal atrial fibrillation. On Eliquis and metoprolol. - Known chronic anemia with Hb 11.6, Hct 35.8, with down trending based on most recent labs. He is having some hemorrhoidal bleeding after stopping metamucil. - Type 2 Diabetes with A1c of 6.6% in January 2025. - Chronic memory impairment noted. - Skin rash, seen at walk in x 2, tx w/ topical steroids and now prednisone; its better but cont. Would like derm referral to [facility]. He does have atypical skin lesion on his back and is seeing [facility] gen surgery for this in April to have removed. - HTN well controlled on current meds - Gout controlled on current meds Review of Systems - Cardiovascular: Reports dizziness and lightheadedness; denies chest pain. - Musculoskeletal: Reports recurrent falls, shoulder, and hip injuries. - Dermatological: Reports rash and bruising easily; denies unhealed wounds. - Neurological: Reports memory impairment; denies headaches or seizures. - Endocrine: Reports known diabetes; denies unexpected weight changes. - Urinary: Denies significant urinary issues beyond known BPH symptoms. Exam Awake alert NAD Scleras nonicteric bilat RRR, 2/6 murmur LS CTAB mildly diminished bilat BLE no edema, + PP Posterior upper back, midline, is raised suspicious skin lesion; on arms and legs scattered purpura; posterior R ankle and dorsum L hand is a faint pink rash; the ankle one w/ secondary excoriation; no signs of infection Mood and affect apprpropriate Results Labs 01/23/25 A1c 6.6%, Hgb 11.6 Hct 35.8 03/28/25 labs reviewed, see below. Discussion Notes I discussed with the patient the complexity and interplay of his chronic conditions, particularly the possible cardiac contribution to his episodes of dizziness and falls. We reviewed the implications of his cardiovascular history, including coronary artery disease and paroxysmal atrial fibrillation, and the necessity of the planned transesophageal echocardiogram to further evaluate potential causes. I also addressed the patient's ground-level falls and the risks they pose, particularly given his anticoagulant use. He declined PT and Cane or walking device. We discussed the potential benefits and drawbacks of using a mobility aid, which the patient declined at this time, preferring to rely on assistance from his . The importance of fall prevention strategies and monitoring was emphasized. I recommended a consultation with dermatology for further evaluation of the skin rash and potential biopsy of a new lesion. Follow-up appointments were scheduled to closely monitor his conditions, and referrals were made to ensure continuity of care with specialists. Assessment and Plan 1. Dizziness and Recurrent Falls - Evaluate cardiovascular function with transesophageal echocardiogram. - Implement fall prevention strategies. 2. Coronary Artery Disease and Paroxysmal Atrial Fibrillation - Continue medications: Metoprolol, Eliquis. - Cardiology follow-up post-echocardiogram. 3. Chronic Anemia/Hemorrhoids w/ bleeding - Monitor hemoglobin, hematocrit. - Explore underlying causes. - Restart OTC metamucil 4. Rash - Dermatology consult placed. - Apply prescribed topical treatments & cont po pred. 5. Type 2 Diabetes Mellitus - Continue current management. - Monitor A1c and glucose. RTO 3 MONTHS FOR CHRONIC DZ MGMT, SOONER PRN, LABS 1 WEEK BEFORE. Patient Instructions - Follow fall prevention strategies to avoid injury. - Attend scheduled appointments including the transesophageal echocardiogram. - Apply prescribed rash cream as directed and monitor for changes. - Keep track of blood sugar levels and follow diet recommendations. - Contact the office with any concerns or worsening of symptoms. Consent Patient was informed and verbally consented to the use of an ambient scribe for clinic note documentation during this visit. Total time spent caring for the patient today was 60 minutes. This includes time spent before the visit reviewing the chart, time spent during the visit, and time spent after the visit on documentation, reviewing laboratory results, diagnostic imaging, medications, performing a medically necessary evaluation, counseling on diagnoses, care coordination, ordering appropriate tests, ordering appropriate medications, review of tests performed by other providers, reporting test results with the patient, communication with other healthcare providers. [facility] Medical History Rash and nonspecific skin eruption No pertinent family history History of cardioversion PAF (paroxysmal atrial fibrillation) CAD (coronary artery disease) Aortic stenosis Chronic renal insufficiency Gout BPH (benign prostatic hyperplasia) Elevated cholesterol HTN (hypertension) Surgical History Hx of aortic valve replacement Hx of CABG Hx of cataract extraction Hx of elbow surgery History of open heart surgery Hx of colonoscopy (~2021) Social History (Updated 03/28/25 @ 10:19 by Low Null MA) Household Members: Spouse Household Members Other:: - healthy Both parents involved: No Caregiver staying overnight: No Housing: House Are you a primary cardiac care nurse to a significant other at home: No Do you presently have visiting nurse or other home services: No 75 years or older and lives alone: No Alcohol intake: current Alcohol intake frequency: a few times a month Patient Tobacco Use Status: Never used Tobacco e-Cigarette/Vaping Use: Never Used Second Hand Smoke Exposure: No Advance Directives Date on File: 04/18/19 service: No Current occupational status: retired Current occupation: left handed Current occupational exposures/hazards: No Cognitive needs: No Hearing needs: No Vision needs: Yes (reading glasses) Questionnaire PHQ-9 Over the last 2 weeks, how often have you been bothered by any of the following problems? 1. Little interest or pleasure in doing things: not at all 2. Feeling down, depressed, or hopeless: not at all 3. Trouble falling or staying asleep, or sleeping too much: several days 4. Feeling tired or having little energy: more than half the days 5. Poor appetite or overeating: not at all 6. Feeling bad about yourself - or that you are a failure or have let yourself or your family down: not at all 7. Trouble concentrating on things, such as reading the newspaper or watching television: not at all 8. Moving or speaking so slowly that other people could have noticed. Or the opposite - being so fidgety or restless that you have been moving around a lot more than usual: not at all 9. Thoughts that you would be better off or of hurting yourself in some way: not at all Total score: 3 Depression Screening Interpretation: Negative Depression Screening Done: Yes 50321 - PHQ-9 Billing: Yes Source: Developed by Drs. Roger Oates, Nayana Quinones, Charly Lerner and colleagues, with an educational david from [employer]. Thrive Questionnaire Date Thrive assessed: 03/28/25 I am a: Patient What is your living situation today?: I have a steady place to live Within the past 12 months, did the food you bought not last and you didn't have the money to get more?: Never true Within the past 12 months, did you worry whether your food would run out before you got money to buy more?: Never true Do you have trouble paying for medicines?: No Do you have trouble getting transportation to medical appointments?: No Do you have trouble paying your heating and electricity bill?: No Do you have trouble taking care of your child, family member or friend?: No Do you have trouble with day-to-day activities such as bathing, preparing meals, shopping, managing finances, etc.?: No Are you currently unemployed and looking for a job?: No Are you interested in more education?: No Please select the resources that you would like help with: None Currently or been in a relationship where the following occur: No concerns reported THRIVE Score: 0 AUDIT C Alcohol Use Questionnaire (AUDIT-C) 1. How often do you have a drink containing alcohol?: 2-3 times a week 2. How many drinks containing alcohol do you have on a typical day when you are drinking?: 1 or 2 3. How often do you have six or more drinks on one occasion?: Less than monthly Total Score: 4 Score Reviewed/Action Taken: Yes JUANITA-7 AMB Questionnaire JUANITA-7 Date JUANITA - 7 assessed: 03/28/25 Feeling nervous, anxious, or on edge: 0 = Not at all Not being able to stop or control worryin = Not at all Worrying too much about different things: 0 = Not at all Trouble relaxin = Not at all Being so restless that it is hard to sit still: 0 = Not at all Becoming easily annoyed or irritable: 1 = Several days Feeling afraid as if something awful might happen: 0 = Not at all Total JUANITA-7 score (0-4 normal; 5-9 mild; 10-14 moderate; 15-21 severe): 1 Source: Developed by Drs. Roger Oates, Nayana Quinones, Charly Lerner and colleagues, with an educational david from [employer]. JUANITA-7 Assessment Billing JUANITA-7 Assessment Tool: JUANITA-7 Assessment 41028 Physical exam (Primary Care) Vital Signs: Last Vital Signs Temp 97.2 F 03/28/25 10:11 Pulse 87 03/28/25 10:11 Resp 13 03/28/25 10:11 BP 130/64 03/28/25 10:44 Pulse Ox 98 03/28/25 10:11 Oxygen Delivery Method Room Air 03/28/25 10:11 BMI result Body Mass Index 26.7 Tobacco/Smoking Status: Tobacco use Status Tobacco use date assessed 03/28/25 03/28/25 10:06 Patient Tobacco Use Status Never used Tobacco 03/28/25 10:19 Tobacco use type 03/06/25 11:28 e-Cigarette/Vaping Use Never Used 03/28/25 10:19 PHQ-9: PHQ-9 Score PHQ-9: Total score 3 03/28/25 10:23 Depression Screening Interpretation: Negative Thrive Assessment: Date of Thrive Assessment Date Thrive assessed 03/28/25 03/28/25 10:06 Currently or been in a relationship where the following occur: No concerns reported Results Reviewed Results Reviewed: Labs from 03/28/[address] Ferrara reveal a glucose of 102, normal renal function, normal electrolytes, mild anemia with a hemoglobin of 10.7 and hematocrit of 35.2 Coding Level of Care Code New Pt Level 5 (95657) Complex EM visit Add On G2211 Diagnoses Encounter to establish care Z76.89 Primary hypertension I10 Hypertension type: primary hypertension Coronary artery disease involving [place] coronary artery of [place] heart without angina pectoris I25.10 Coronary Disease-Associated Artery/Lesion type: [place] artery [place] vs. transplanted heart: [place] heart Associated angina: without angina Type 2 diabetes mellitus without complication, without long-term current use of insulin E11.9 Diabetes mellitus chcf insulin use: without meterman use Diabetes mellitus complication status: without complication Multiple falls R29.6 BPH w urinary obs/LUTS N40.1; N13.8 Anemia, unspecified type D64.9 Anemia type: unspecified type Allergic contact dermatitis due to plants, except food L23.7 Contact dermatitis trigger: non-food plants Contact dermatitis type: allergic Rash and nonspecific skin eruption R21 Hemorrhoids, unspecified hemorrhoid type K64.9 Hemorrhoid type: unspecified Atypical pigmented skin lesion L81.9 Internal hemorrhoids K64.8 Anticoagulant long-term use Z79.01 PAF (paroxysmal atrial fibrillation) I48.0 Tubular adenoma D36.9 Secondary hypercoagulable state D68.69 Separation of left acromioclavicular joint, type 1, sequela S43.102S Encounter type: sequela Chronic gout of multiple sites, unspecified cause M1A.09X0 Gout site: multiple sites Gout etiology: unspecified cause Chronicity: chronic Primary osteoarthritis of left hip M16.12 Osteoarthritis type: primary Additional Codes JUANITA-7 Assessment Billing - JUANITA-7 Assessment Tool: JUANITA-7 Assessment 21387 ([id number]) PHQ-9 - 76297 - PHQ-9 Billing: Yes ([id number]) Assessment & Plan Assessment & Plan (1) Encounter to establish care: Code(s): Z76.89 - Persons encountering health services in other specified circumstances (2) HTN (hypertension): Code(s): I10 - Essential (primary) hypertension Category: Medical Qualifiers: Hypertension type: primary hypertension Qualified Code(s): I10 - Essential (primary) hypertension (3) CAD (coronary artery disease): Code(s): I25.10 - Atherosclerotic heart disease of [place] coronary artery without angina pectoris Category: Medical Qualifiers: Coronary Disease-Associated Artery/Lesion type: [place] artery [place] vs. transplanted heart: [place] heart Associated angina: without angina Qualified Code(s): I25.10 - Atherosclerotic heart disease of [place] coronary artery without angina pectoris (4) DM2 (diabetes mellitus, type 2): Code(s): E11.9 - Type 2 diabetes mellitus without complications Category: Medical Qualifiers: Diabetes mellitus meterman insulin use: without meterman use Diabetes mellitus complication status: without complication Qualified Code(s): E11.9 - Type 2 diabetes mellitus without complications (5) Multiple falls: Code(s): R29.6 - Repeated falls Category: Medical (6) BPH w urinary obs/LUTS: Code(s): N40.1 - Benign prostatic hyperplasia with lower urinary tract symptoms; N13.8 - Other obstructive and reflux uropathy Category: Medical (7) Anemia: Code(s): D64.9 - Anemia, unspecified Category: Medical Qualifiers: Anemia type: unspecified type Qualified Code(s): D64.9 - Anemia, unspecified (8) Contact dermatitis: Code(s): L25.9 - Unspecified contact dermatitis, unspecified cause Category: Medical Qualifiers: Contact dermatitis trigger: non-food plants Contact dermatitis type: allergic Qualified Code(s): L23.7 - Allergic contact dermatitis due to plants, except food (9) Rash and nonspecific skin eruption: Code(s): R21 - Rash and other nonspecific skin eruption Category: Medical (10) Hemorrhoids: Code(s): K64.9 - Unspecified hemorrhoids Category: Medical Qualifiers: Hemorrhoid type: unspecified Qualified Code(s): K64.9 - Unspecified hemorrhoids (11) Atypical pigmented skin lesion: Code(s): L81.9 - Disorder of pigmentation, unspecified Category: Medical (12) Internal hemorrhoids: Comment: Avoid straining, maintain high-fiber diet Code(s): K64.8 - Other hemorrhoids Category: Medical (13) Anticoagulant long-term use: Comment: Apixaban-to be discontinued 2 days prior to colonoscopy if appropriate must be cleared by Cardiology Code(s): Z79.01 - termination clerk (current) use of anticoagulants Category: Medical (14) PAF (paroxysmal atrial fibrillation): Code(s): I48.0 - Paroxysmal atrial fibrillation Category: Medical (15) Tubular adenoma: Onset Date: 2021 Comment: Repeat asymptomatic colonoscopy 3 5 if help prevail Code(s): D36.9 - Benign neoplasm, unspecified site Category: Medical (16) Secondary hypercoagulable state: Comment: ON ELIQUIS, D/T AFIB Code(s): D68.69 - Other thrombophilia Category: Medical (17) Separation of left acromioclavicular joint, type 1: Code(s): S43.102A - Unspecified dislocation of left acromioclavicular joint, initial encounter Category: Medical Qualifiers: Encounter type: sequela Qualified Code(s): S43.102S - Unspecified dislocation of left acromioclavicular joint, sequela (18) Gout: Code(s): M10.9 - Gout, unspecified Category: Medical Qualifiers: Gout site: multiple sites Gout etiology: unspecified cause Chronicity: chronic Qualified Code(s): M1A.09X0 - Idiopathic chronic gout, multiple sites, without tophus (tophi) (19) Osteoarthritis of left hip: Code(s): M16.12 - Unilateral primary osteoarthritis, left hip Category: Medical Qualifiers: Osteoarthritis type: primary Qualified Code(s): M16.12 - Unilateral primary osteoarthritis, left hip Plan . Orders: Orders Lipid Panel 3 Months D36.9 - Benign neoplasm, unspecified site, D64.9 - Anemia, unspecified, D68.69 - Other thrombophilia, E11.9 - Type 2 diabetes mellitus without complications, I10 - Essential (primary) hypertension, I48.0 - Paroxysmal atrial fibrillation, K64.8 - Other hemorrhoids, Z79.01 - retirement (current) use of anticoagulants Vitamin D 25-OH Total 3 Months D36.9 - Benign neoplasm, unspecified site, D64.9 - Anemia, unspecified, D68.69 - Other thrombophilia, E11.9 - Type 2 diabetes mellitus without complications, I10 - Essential (primary) hypertension, I48.0 - Paroxysmal atrial fibrillation, K64.8 - Other hemorrhoids, Z79.01 - retirement (current) use of anticoagulants Vitamin B12 and Folate 3 Months D36.9 - Benign neoplasm, unspecified site, D64.9 - Anemia, unspecified, D68.69 - Other thrombophilia, E11.9 - Type 2 diabetes mellitus without complications, I10 - Essential (primary) hypertension, I48.0 - Paroxysmal atrial fibrillation, K64.8 - Other hemorrhoids, Z79.01 - termination clerk (current) use of anticoagulants Complete Blood Count no Diff 3 Months D36.9 - Benign neoplasm, unspecified site, D64.9 - Anemia, unspecified, D68.69 - Other thrombophilia, E11.9 - Type 2 diabetes mellitus without complications, I10 - Essential (primary) hypertension, I48.0 - Paroxysmal atrial fibrillation, K64.8 - Other hemorrhoids, Z79.01 - termination clerk (current) use of anticoagulants Ferritin 3 Months D36.9 - Benign neoplasm, unspecified site, D64.9 - Anemia, unspecified, D68.69 - Other thrombophilia, E11.9 - Type 2 diabetes mellitus without complications, I10 - Essential (primary) hypertension, I48.0 - Paroxysmal atrial fibrillation, K64.8 - Other hemorrhoids, Z79.01 - termination clerk (current) use of anticoagulants IRON PROFILE 3 Months D36.9 - Benign neoplasm, unspecified site, D64.9 - Anemia, unspecified, D68.69 - Other thrombophilia, E11.9 - Type 2 diabetes mellitus without complications, I10 - Essential (primary) hypertension, I48.0 - Paroxysmal atrial fibrillation, K64.8 - Other hemorrhoids, Z79.01 - retirement (current) use of anticoagulants Microalbumin, Random (w Creat) 3 Months D36.9 - Benign neoplasm, unspecified site, D64.9 - Anemia, unspecified, D68.69 - Other thrombophilia, E11.9 - Type 2 diabetes mellitus without complications, I10 - Essential (primary) hypertension, I48.0 - Paroxysmal atrial fibrillation, K64.8 - Other hemorrhoids, Z79.01 - retirement (current) use of anticoagulants Referrals Dermatology Referral L23.7 - Allergic contact dermatitis due to plants, except food, R21 - Rash and other nonspecific skin eruption Medications: New fenofibrate nanocrystallized 145 mg PO DAILY 90 tabs 2RF finasteride 5 mg PO DAILY 90 tabs 2RF losartan 100 mg PO DAILY 90 tabs 2RF simvastatin 40 mg (2 x 20 mg) PO DAILY 90 tabs 2RF allopurinol 300 mg PO DAILY 90 tabs 2RF apixaban (Eliquis) 5 mg PO BID 180 tabs 2RF furosemide 20 mg PO DAILY 90 tabs 2RF metoprolol succinate ER 100 mg PO DAILY 90 tabs 2RF tamsulosin 0.4 mg PO DAILY 90 caps 2RF Changed From amlodipine 5 mg PO ONCE To amlodipine 5 mg PO DAILY 90 tabs 2RF Patient Instructions: Walk-In Care (Urgent Care): We Make it Easy Walk-in for urgent medical issues such as: ? Seasonal Allergies ? Insect Bites ? Cough ? Diarrhea ? Acute Asthma Attacks ? Back, Knee or Joint Pain ? Ear Infection ? Fever without a Rash ? Headaches ? Nausea ? [place] Eye, Rash or Skin Irritation ? Sore Throat ? Sports Physicals ? Vomiting Most insurances are accepted. Patients do not need to be part of the [facility] to seek care at the walk-in clinic. Locations [address] , [place] [address] ? [phone] [facility] [facility] [place] provides services to ages 18 and over. Open Wednesday-Wednesday: 8 a.m. to 5 p.m. and Wednesday: 9 a.m. to 3 p.m.* *Hours may vary due to staffing availability. To confirm Walk-In Care hours in [place], please call [phone]. [address] [place] [id number] ? [phone] [facility] [place] [facility] [place] provides services to ages 12 and over. Open Wednesday-Wednesday: 8 a.m. to 5 p.m. Hours may vary due to staffing availability. To confirm Walk-In Care hours in [place], please call [phone]. LABORATORY SERVICES: [facility] Lab ? Primary Location [address] [place] [address] Wednesday through Wednesday 6:00 AM ? 5:00 PM Wednesday 7:00 AM ? 11:00 AM* [phone] The [facility] Lab is centrally located near the front entrance of the [facility] for easy outpatient access. Convenient parking is provided for outpatients. *Hours may vary due to staffing availability. To confirm Laboratory hours for any location, please call [phone]. Offsite Location For your convenience, we offer offsite laboratory draw stations at the following locations: [address] [place] [address] ? [facility] [address], [address] Wednesday through Wednesday 7:30 AM ? 1:00 PM* [phone] *Hours may vary due to staffing availability. To confirm Laboratory hours for any location, please call [phone]. [place] ? [address], [place] Wednesday through Wednesday 6:00 AM ? 3:30 PM* Wednesday 6:30 AM ? 3 PM* [phone] *Hours may vary due to staffing availability. To confirm Laboratory hours for any location, please call [phone]. [address] [facility] Wednesday through Wednesday 7:30 AM ? 4:00 PM* [phone] *Hours may vary due to staffing availability. To confirm Laboratory hours for any location, please call [phone]. [address] Wednesday through 9:00 AM ? 4:00 PM* *Hours may vary due to staffing availability. To confirm Laboratory hours for any location, please call [phone]. Appointments are not necessary. Walk-ins are welcome. Like all the departments throughout the [facility], our Lab undergoes frequent reviews to ensure the quality and accuracy of test results, and our staff takes special pride in its status as a nationally accredited facility. Patient Portal: ONE PATIENT. ONE RECORD. BETTER CARE. [employer] has a fully integrated, cutting-edge mobile electronic health information system that has revolutionized the way we care for our patients and manage our organization. This system improves communication and coordination enabling us to provide safe, higher-quality care, and an overall positive experience for staff and patients. Our first priority, as always, is to deliver the highest quality care possible. The system is running in the background supporting that priority. This portal is for all [facility] and [facility] services and practices. If you are experiencing any technical difficulties with enrolling or logging into the Patient Portal please complete the [facility] Patient Portal Technical Support Form. [facility] and [facility] now offers a new secure on-line interactive tool for patients to review their health information ? ?Patient Portal. This interactive web portal will enable patients and their families to take an active role in their care by providing easy, secure access to their health information via the internet. The Patient Portal provides patients with instant access to their health information, including laboratory results, medications, allergies, demographic information, visit history, and more. In addition to managing their own care, parents and health care proxies with authorized consent will appreciate the ability to access the records of those individuals for whom they provide care. Please note: if you wish to gain access (Proxy) to another patient?s portal, you will be required to come to the Medical Records Department in person at [facility]. Both the patient giving proxy access and the proxy will need to provide photo identification and complete the appropriate authorization. The Patient Portal also allows track their appointments online. The [facility] Patient Portal also saves patients time by allowing them to submit updates to their demographic and contact information prior to their visits. Portal email notifications will also alert patients to any new activity on their portal, such as test results and new appointments. In order to initially enroll in the [facility] Patient Portal, you will need to enter some required information including the following: your [facility] Medical Record number your personal home email address name date of Please note: In order to enroll in the [facility] Patient Portal, we need to have your email address on file in your electronic medical record. ?The email address needs to be specific for one person (yourself) in order for your Portal enrollment to be successful. ?You can update your email address in person with our Registration staff when you are registering for a hospital visit. ?Otherwise, you will need to come to the Health Information Management (Medical Records) Department at [facility]. ?We are open from Wednesday ? Wednesday from 7:30 a.m. ? 4:30 p.m. ?You will be required to present a photo id. Once you have successfully enrolled in the Patient Portal, you will receive a one-time user id and password for the Portal, sent to your email address. ?This will allow you to log into the Patient Portal within 99 hrs and reset your own logon id and password, and define personal security questions. ?Once your permanent login and password have been set, you can log into the [facility] Patient Portal at any time via the blue button above or from the Portal Logon button on any page of the [facility] website. [facility] and [facility] encourage all of our patients to enroll in Patient Portal as it presents a valuable opportunity for patients and their families to actively participate in their care and stay healthy Welcome to [facility]. ?We look forward to working with you.
[2025-03-28 10:11] VITALS: BP 146/78; PULSE 87; RESP 13; TEMP 36.2; O2SAT 98; BMI 26.7
[2025-03-28 10:44] VITALS: BP 130/64
--- OUTSIDE RECORDS SUMMARY | 2025-03-28 10:50 | XMS_ITS | Clinical Summary ---
Author Organization [facility] Address [address] [facility] [place] [place] [address] Phone Care Team Providers Care Chemistry Technical Officer Name Role Phone Brianna Pandya Primary Care [...] disease invo lving coronary bypass graft of [place] heart without angina pectoris 10/08/2021 Overview (07/25/2024): [...] anticoagulated on Eliquis for stroke reduction. His [id number] score is 3 for age greater than [...] Encounters Date Type Department Care Team Description 03/16/2025 Telephone [facility] Cardiology [facility] [address] [place] [address] Gigi Ferrara MD Procedure (ALDO 8.4.25) 03/12/2025 12:30 PM EDT Ancillary Procedure [facility] [address] [place] [address] Nonrheumatic aortic valve stenosis 03/05/2025 Telephone [facility] [address] [place] [address] Jessica Bradley NP records 02/28/2025 Telephone [facility] [address] [place] [address] Jessica Bradley NP 02/13/2025 12:45 PM EDT Ancillary Procedure [facility] [address] [place] [address] Dizziness 02/05/2025 2:40 PM EDT Office Visit [facility] [address] [place] [address] Jessica Bradley NP Nonrheumatic aortic valve stenosis (Primary Dx); Dizziness; Coronary artery disease involving coronary bypass graft of [place] heart without angina pectoris; Paroxysmal atrial fibrillation (CMS/HCC V24, CMS/HCC V28); Essential hypertension from Last 3 Months Social History Tobacco [...] Sign Reading Time Taken Comments Blood Pressure 126/60 03/12/2025 1:25 PM EDT Pulse 72 02/05/2025 2:51 PM EDT Temperature - - Respiratory Rate - - Oxygen Saturation 98% 02/05/2025 2:51 PM EDT Inhaled Oxygen Concentration - - Weight 87.5 kg (193 lb) 03/12/2025 1:25 PM EDT Height 177.8 cm (5' 10 ) 03/12/2025 1:25 PM EDT Body Mass Index 27.69 03/12/2025 1:25 PM EDT Plan of Treatment Upcoming Encounters Date Type Department Care Team (Late st Contact Info) Description 04/09/2025 1:30 PM EDT Appointment [facility] Cardiac [facility]le [facility] [address] [place] [id number] Gigi Ferrara MD [address] [facility] [address] [place] [address] Health Maintenance Due Date Last Done Comments RSV Immunization Adult Patients (1 - 1-dose 75+ series) 2017 Falls Risk Assessment 08/09/2022 Medicare Annual Wellness Visit 08/09/2022 Social Influencers of Health Screening 08/09/2022 Hypertension/CHF/CAD Annual BMP Blood Test 08/15/2022 COVID-19 Vaccine ( season) 2024 06/24/2021, 11/01/2020, 10/09/2020 Depression Screening 09/06/2024 Influenza Vaccine (#1) 2025 , 06/06/2023, 05/31/2023, Additional history exists DTaP,Tdap,and Td Vaccines (2 - Tdap) 06/05/2025 06/05/2015 Cholesterol Screening (Lipid Panel) 05/22/2027 05/22/2022 Pneumococcal Vaccine: 50+ Years Completed 07/01/2017, 07/18/2015 Zoster Vaccines Completed 12/04/2020, 09/2019, 05/21/2015 HIB Vaccines Aged Out No longer eligi [...] Diagnosis Comments TRANSTHORACIC ECHOCARDIOGRAM (TTE) COMPLETE Routine 03/12/2025 1:26 PM EDT Nonrheumatic aortic valve stenosis VAS US DUPLEX CAROTID BILATERAL Routine 02/13/2025 1:00 PM EDT Dizziness LIPID PANEL Routine 05/22/2022 from Last 3 Months or Most Recently Relevant to Health Maintenance Results * (ABNORMAL) TRANSTHORACIC ECHOCARDIOGRAM (TTE) COMPLETE (03/12/2025 1:26 PM EDT) BSA 2.08 m2 CV PACS LVIDD 5.8 4.2 - 5.8 cm CV PACS LVIDD Index 2.82 cm/m2 CV PACS LVIDS 4.7(A) 2.5 - 4.0 cm CV PACS LVIDS Index 2.28 cm/m2 CV PACS LVPWD 1.0 0.6 - 1.0 cm CV PACS IVSD 8.0(A) 0.6 - 1.0 cm CV PACS LV Mass 2D 2,535(A) 96 - 200 g CV PACS LV Mass Index 2D 1,231(A) 50 - 102 g/m2 CV PACS Relative Wall Thickness ratio 0.34 0.24 - 0.42 CV PACS FS 19 % CV PACS RVIDD 5.2 cm CV PACS RVIDD Index 2.5 cm/m2 CV PACS RA Area 33.0 cm2 CV PACS AV Peak Chema 3.1 m/s CV PACS Ao VTI 72.9 cm CV PACS AV Mean Gradient 23 mmHg CV PACS AV Peak Gradient 38 mmHg CV PACS LVOT:AV VTI Index 0.23 CV PACS LVOT Peak VTI 16.9 cm CV PACS LVOT Mean Chema 5.3 m/s CV PACS TR Peak Velocity 2.90 m/s CV PACS Right Ventricular Peak Systolic Pressure 42 mmHg CV PACS Est. RA Pressure 8 mmHg CV PACS AV Acceleration Time 1 ms CV PACS Ascending Aorta 2.8 cm CV PACS Ascending Aorta Index 1.36 cm/m2 CV PACS TR Peak Gradient 33 mmHg CV PACS Anatomical Region Laterality Modality Ultrasound Narrative 03/15/2025 3:37 PM EDT Left ventricle cavity size is normal. Wall thickness is normal. Systolic function is low normal with an ejection fraction of 50-55%. There are no regional LV wall motion abnormalities. Abnormal LV diastolic function. Left atrial pressure is inconclusive. Right ventricle is enlarged. Right ventricular systolic function is normal. A bioprosthetic aortic valve is present. 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 Compared to 2023, the LVEF appears less vigorous. Consider ALDO to evaluate the bioprosthetic valve. Left Ventricle Left ventricle cavity size is normal. Wall thickness is normal. Systolic function is low normal with an ejection fraction of 50-55%. There are no regional LV wall motion abnormalities. Abnormal LV diastolic function. Left atrial pressure is inconclusive. Right Ventricle Right ventricle cavity is dilated. Systolic function is normal. Normal TAPSE (> 17 mm). Left Atrium Left atrium volume index is severely increased at 49 ml/m2. Right Atrium Right atrium cavity is mildly dilated. IVC/SVC RA pressures is estimated to be 8 mmHg (IVC diameter <21 mm and decreases <50% during inspiration). Mitral Valve The leaflets are mildly thickened and exhibit normal excursion. There is mild annular calcification. There is mild regurgitation. There is no evidence of mitral valve stenosis. Tricuspid Valve The leaflets exhibit normal excursion. There is mild regurgitation. There is no evidence of tricuspid valve stenosis. Aortic Valve The valve has been surgically replaced. There is a bioprosthetic valve.Elevated systolic velocities. Acceleration time is greater than 100 ms suggestive of stenosis. Bioprosthetic valve is well seated There is no regurgitation. Pulmonic Valve The pulmonic valve was not well visualized. No significant pulmonic valve regurgitation. No significant pulmonary valve stenosis noted. Ascending Aorta The aorta appears normal in size. Pericardium Pericardium appears normal. There is no pericardial effusion. Study Details Overall the study quality was adequate. us Jessica Bradley NP CV ECHO PROCEDURES Fin al Result * Vascular US duplex carotid bilateral (02/13/2025 [...] Interpretation was done according to the [place] Symptomatic Carotid Endarterectomy Trial (NASCET) criteria and [...] has minimal plaque. Vertebral flow is antegrade. Banquet Manager Details A hong scale, color and [...] Most Recently Relevant to Health Maintenance Insurance [facility] MEDICARE Care Teams Chemistry Technical Officer Relationship Specialty Start Date End Date Brianna Pandya FNP [address] [place] [address] [place] [address] PCP - General Nurse Practitioner 03/01/25
--- OUTSIDE RECORDS SUMMARY | 2025-03-28 10:50 | XMS_ITS | Patient Health Record ---
Author Organization [facility] Address [address] [place] [address] Care Team Providers Care Yard Operator Name Role Phone Tono Collado MD Primary Care Provider Christiano Landry Unavailable [phone] Reason For Referral No Information Medications Medication [...] Status W/U Status Risk Notes Problem Bursitis (60558366) Bursitis (727.3) Active confirmed Problem Myositis (88709788) Myositis (729.1) Active confirmed Problem Pain in limb (08786193) Pain in Limb (729.5) Active confirmed Problem Plantar fasciitis (999626688) Plantar Fasciitis (728.71) Active confirmed Problem Calcaneal spur (41628444) Calcaneal spur (726.73) Active confirmed Plan Of Treatment No Information Insurance Providers Payer Name Payer Address Payer Phone Subscriber Number Group Number Insured Name Patient Relationship to Insured Coverage Start Date Coverage End Date Medicare National [employer] [address] [place] [address] [id number] August Gamino Self - patient is the insured [employer] [facility] [address] [place] [address] [id number] August Gamino Self - patient is the insured Medical (General) History Medical History History ICD Code Gout high blood pressure measles chicken pox Surgical History Surgery Date(Month/Year) Bone Spurs cataract removal lasik
== END 2025-03-28 10:56 | disposition home or self-care (01) ==
LOC: HO.HMCFM 10:01
PROVIDERS: PCP Nurse Practitioner Family; Visit Provider Nurse Practitioner Family
DX: E11.9 Type 2 diabetes mellitus without complications (principal); Z76.89 Persons encountering health services in other specified circumstances; I48.0 Paroxysmal atrial fibrillation; I10 Essential (primary) hypertension; I25.10 Atherosclerotic heart disease of native coronary artery without angina pectoris; R29.6 Repeated falls; N40.1 Benign prostatic hyperplasia with lower urinary tract symptoms; N13.8 Other obstructive and reflux uropathy; D64.9 Anemia, unspecified; L23.7 Allergic contact dermatitis due to plants, except food; R21 Rash and other nonspecific skin eruption; K64.9 Unspecified hemorrhoids

== ENCOUNTER → 2025-03-28 10:00 | Outpatient (BNVA) | payer MEDICARE, SELFPAY | PROVIDERS: PCP Nurse Practitioner Family; Visit Provider Nurse Practitioner Family | DX: Z76.89 Persons encountering health services in other specified circumstances (principal); I10 Essential (primary) hypertension; I25.10 Atherosclerotic heart disease of native coronary artery without angina pectoris; E11.9 Type 2 diabetes mellitus without complications; R29.6 Repeated falls; N40.1 Benign prostatic hyperplasia with lower urinary tract symptoms; N13.8 Other obstructive and reflux uropathy; D64.9 Anemia, unspecified; L23.7 Allergic contact dermatitis due to plants, except food; R21 Rash and other nonspecific skin eruption; K64.9 Unspecified hemorrhoids; L81.9 Disorder of pigmentation, unspecified; K64.8 Other hemorrhoids; I48.0 Paroxysmal atrial fibrillation; D36.9 Benign neoplasm, unspecified site; D68.69 Other thrombophilia; S43.102S Unspecified dislocation of left acromioclavicular joint, sequela; M16.12 Unilateral primary osteoarthritis, left hip; M1A.09X0 Idiopathic chronic gout, multiple sites, without tophus (tophi); Z79.01 Long term (current) use of anticoagulants | CPT/HCPCS: 96127; 99212 ==

== ENCOUNTER 2025-04-11 13:05 | Outpatient (AMB) | payer MEDICARE, SELFPAY ==
--- NOTE | 2025-04-11 13:06 | A.OFFPC_ITS ---
Vital Signs 3 04/11/25 13:12 Height 5 ft 11 in Weight 191 lb 6 oz BMI 26.7 BP 134/74 Blood Pressure Location Rt brachial Position Sitting Respiration 13 Pulse 93 Pulse Source Pulse Oximeter Temp 97.1 F Temp Source Oral Pulse Oximetry (%) 96 Oxygen Delivery Method Room Air Intake Visit Reasons: rash and itching all over. Intake Note: Patient c/o itching all over body x 2 months. Patient has been to [facility] walk in clinic twice for this itching. Deck Engineer Required: No Allergies No Known Allergies Allergy (Verified 04/11/25 13:24) Medication List - Last Reconciled 04/11/25 by Brianna Pandya, PATIENT FINANCIAL COORDINATOR- allopurinol 300 mg PO DAILY amlodipine 5 mg PO DAILY apixaban (Eliquis) 5 mg PO BID betamethasone dipropionate 0.05% 1 appl topical BID 14 days fenofibrate nanocrystallized 145 mg PO DAILY finasteride 5 mg PO DAILY furosemide 20 mg PO DAILY losartan 100 mg PO DAILY metoprolol succinate ER 100 mg PO DAILY simvastatin 40 mg (2 x 20 mg) PO DAILY tamsulosin 0.4 mg PO DAILY Tobacco use date assessed: 04/11/25 Fall risk assessment: 1 Fall in past year (stairs) Last assessed Fall Risk: 04/11/25 Dental Screening Dental Screen Date: 04/11/25 Did you have a dental visit in the last 12 months?: Yes Did you have a dental problem in the last 6 months where you did not have access to dental care?: No Was dental information given to patient?: Patient has dentist HPI HPI Comments 2 History of Present Illness0 Details 'Mahesh' 84 y/o M with CAD, HTN, severe aortic va lve stenosis s/p bioprostethic AVR, PAF on eliquis, HLD, CHF (echo 09/202324 Grade 2 diastolic dysfunction EF 55-60%), multiple falls, BPH with urinary retention, gout, DM2, anemia s/p CABG TYLER to the LAD, SVG, hemorrhoidectomy, bilat cataract surgery Fhx: Mom 64, Dad 62, 1 sister, 3 children (2 girls 1 boy) Social: ( Etta), 2 dtrs Michelle and Alesha History of Present Illness - The patient is an 85-year-old male pre senting with a recurrent rash. - Rash initially appeared behind R ankle as a patch (still present) - Rash spreads to the back, trunk, arms and neck; now extending into the hair. - Temporarily relieved by warm showers - Itchiness is less; primarily widesprea d. - Previous courses of prednisone only pa rtially effective. - Beta-methasone cream used for relief w / short lived relief. Review of Systems - Integumentary: Reports diffuse rash an d itching primarily on the back, neck, and scalp. Denies pain and burning. Reports improvement when using beta- methasone cream and during warm showers. - Musculoskeletal: Denies pain. - Neurological: Denies burning or tingli ng. - General: denies fever, chills, abd keke n, new detergents or exposures, travel or others w similar rash. Exam Awake alert NAD Scleras nonicteric bilat RRR, 2/6 murmur LS CTAB mildly diminished bilat BLE no edema, + PP Posterior upper back, midline, is raised suspicious skin lesion; posterior R ankle (see below) on anterior, posterior trunk, bilat arms and scattered on thighs is a pink papular rash (see image on back), no signs of infection Mood and affect appropriate Discussion Notes I reviewed the primary concern of a recurrent rash that initially developed around the patient's ankle and is spreading. I explained the possible differential diagnoses, which include a viral rash, allergic reaction, or another dermatological condition. I discussed the benefits and limitations of using Zyrtec and famotidine to help alleviate symptoms and explained why I am avoiding further use of prednisone unless necessary. I proposed an urgent dermatology referral to evaluate the cause of the rash further. We have agreed to try to expedite this referral through several local offices, with unsuccessful attempt to obtain an earlier appointment than those currently offered, which is June w/ [facility]. I instructed the patient to continue using the beta-methasone cream for any acute flare-ups and assured him that additional steps will be taken should his symptoms worsen or persist. Patient was given time to ask questions. All questions were answered to their satisfaction. Assessment and Plan 1. Recurrent Rash - Suspect dermatological or allergic con dition; Zyrtec and famotidine prescribed for symptoms. - Use beta-methasone cream for flare-ups . - Advised to try to walk into Derm to se e if they have any cancellations. Patient Instructions - Take Zyrtec once every morning. - Take famotidine at bedtime. - Use beta-methasone cream for itchy spo ts if needed. - Attend dermatology appointment in for rash evaluation. - Contact our office if rash worsens or if you have concerns. Consent Patient was informed and verbally consented to the use of an ambient scribe for clinic note documentation during this visit. Total time spent caring for the patient today was 40 minutes. This includes time spent before the visit reviewing the chart, time spent during the visit, and time spent after the visit on documentation, reviewing laboratory results, diagnostic imaging, medications, performing a medically necessary evaluation, counseling on diagnoses, care coordination, ordering appropriate tests, ordering appropriate medications, review of tests performed by other providers, reporting test results with the patient, communication with other healthcare providers. [facility] Medical History Rash and nonspecific skin eruption No pertinent family history History of cardioversion PAF (paroxysmal atrial fibrillation) CAD (coronary artery disease) Aortic stenosis Chronic renal insufficiency Gout BPH (benign prostatic hyperplasia) Elevated cholesterol HTN (hypertension) Surgical History Hx of aortic valve replacement Hx of CABG Hx of cataract extraction Hx of elbow surgery History of open heart surgery Hx of colonoscopy (~2021) Social History (Updated 03/28/25 @ 10:19 by Low Null MA) Household Members: Spouse Household Members Other:: - healthy Both parents involved: No Caregiver staying overnight: No Housing: House Are you a primary prompt care rn to a significant other at home: No Do you presently have visiting nurse or other home services: No 75 years or older and lives alone: No Alcohol intake: current Alcohol intake frequency: a few times a month Patient Tobacco Use Status: Never used Tobacco e-Cigarette/Vaping Use: Never Used Second Hand Smoke Exposure: No Advance Directives Date on File: 04/18/19 service: No Current occupational status: retired Current occupation: left handed Current occupational exposures/hazards: No Cognitive needs: No Hearing needs: No Vision needs: Yes (reading glasses) Questionnaire PHQ-9 Over the last 2 weeks, how often have you been bothered by any of the following problems? 1. Little interest or pleasure in doing things: not at all 2. Feeling down, depressed, or hopeless: not at all 3. Trouble falling or staying asleep, or sleeping too much: not at all 4. Feeling tired or having little energy: not at all 5. Poor appetite or overeating: not at all 6. Feeling bad about yourself - or that you are a failure or have let yourself or your family down: not at all 7. Trouble concentrating on things, such as reading the newspaper or watching television: not at all 8. Moving or speaking so slowly that other people could have noticed. Or the opposite - being so fidgety or restless that you have been moving around a lot more than usual: not at all 9. Thoughts that you would be better off or of hurting yourself in some way: not at all Total score: 0 Depression Screening Interpretation: Negative Depression Screening Done: Yes 56929 - PHQ-9 Billing: Yes Source: Developed by Drs. Roger Oates, Nayana Quinones, Charly Lerner and colleagues, with an educational david from [employer]. Thrive Questionnaire Date Thrive assessed: 04/11/25 I am a: Patient What is your living situation today?: I have a steady place to live Within the past 12 months, did the food you bought not last and you didn't have the money to get more?: Never true Within the past 12 months, did you worry whether your food would run out before you got money to buy more?: Never true Do you have trouble paying for medicines?: No Do you have trouble getting transportation to medical appointments?: No Do you have trouble paying your heating and electricity bill?: No Do you have trouble taking care of your child, family member or friend?: No Do you have trouble with day-to-day activities such as bathing, preparing meals, shopping, managing finances, etc.?: No Are you currently unemployed and looking for a job?: No Are you interested in more education?: No Please select the resources that you would like help with: None Currently or been in a relationship where the following occur: No concerns reported THRIVE Score: 0 JUANITA-7 AMB Questionnaire JUANITA-7 Date JUANITA - 7 assessed: 04/11/25 Feeling nervous, anxious, or on edge: 0 = Not at all Not being able to stop or control worryin = Not at all Worrying too much about different things: 0 = Not at all Trouble relaxin = Not at all Being so restless that it is hard to sit still: 0 = Not at all Becoming easily annoyed or irritable: 0 = Not at all Feeling afraid as if something awful might happen: 0 = Not at all Total JUANITA-7 score (0-4 normal; 5-9 mild; 10-14 moderate; 15-21 severe): 0 Source: Developed by Drs. Roger Oates, Nayana Quinones, Charly Lerner and colleagues, with an educational david from [employer]. JUANITA-7 Assessment Billing JUANITA-7 Assessment Tool: JUANITA-7 Assessment 59317 Physical exam (Primary Care) Vital Signs: Last Vital Signs Temp 97.1 F 04/11/25 13:12 Pulse 93 04/11/25 13:12 Resp 13 04/11/25 13:12 BP 134/74 04/11/25 13:12 Pulse Ox 96 04/11/25 13:12 Oxygen Delivery Method Room Air 04/11/25 13:12 BMI result Body Mass Index 26.7 Tobacco/Smoking Status: Tobacco use Status Tobacco use date assessed 04/11/25 04/11/25 13:15 Patient Tobacco Use Status Never used Tobacco 04/11/25 13:15 Tobacco use type 03/06/25 11:28 e-Cigarette/Vaping Use Never Used 04/11/25 13:15 PHQ-9: PHQ-9 Score PHQ-9: Total score 0 04/11/25 13:15 Depression Screening Interpretation: Negative Thrive Assessment: Date of Thrive Assessment Date Thrive assessed 04/11/25 04/11/25 13:15 Currently or been in a relationship where the following occur: No concerns reported Coding Level of Care Code Est Pt Level 5 (50359) Complex EM visit Add On G2211 Diagnoses Rash and nonspecific skin eruption R21 Additional Codes JUANITA-7 Assessment Billing - JUANITA-7 Assessment Tool: JUANITA-7 Assessment 31267 ([id number]) PHQ-9 - 37172 - PHQ-9 Billing: Yes ([id number]) Assessment & Plan Assessment & Plan (1) Rash and nonspecific skin eruption: Code(s): R21 - Rash and other nonspecific skin eruption Category: Medical Plan , Medications: New 2 cetirizine (Zyrtec) 10 mg PO DAILY 30 caps 0RF famotidine 20 mg PO BEDTIME 30 tabs 0RF
[2025-04-11 13:12] VITALS: BP 134/74; PULSE 93; RESP 13; TEMP 36.2; O2SAT 96; BMI 26.7
--- OUTSIDE RECORDS SUMMARY | 2025-04-11 13:39 | XMS_ITS | Patient Health Record ---
Author Organization [facility] Address [address] [place] [address] Care Team Providers Care Crm Marketing Executive Name Role Phone Tono Collado MD Primary Care Provider Christiano Landry Unavailable [phone] Reason For Referral No Information Medications Medication [...] Status W/U Status Risk Notes Problem Bursitis (12774357) Bursitis (727.3) Active confirmed Problem Myositis (87532418) Myositis (729.1) Active confirmed Problem Pain in limb (28966239) Pain in Limb (729.5) Active confirmed Problem Plantar fasciitis (797421097) Plantar Fasciitis (728.71) Active confirmed Problem Calcaneal spur (47470074) Calcaneal spur (726.73) Active confirmed Plan Of Treatment No Information Insurance Providers Payer Name Payer Address Payer Phone Subscriber Number Group Number Insured Name Patient Relationship to Insured Coverage Start Date Coverage End Date Medicare National Govt S[employer] [address] [place] [address] [id number] August Gamino Self - patient is the insured [employer] [facility] [address] [place] [address] [id number] August Gamino Self - patient is the insured Medical (General) History Medical History History ICD Code Gout high blood pressure measles chicken pox Surgical History Surgery Date(Month/Year) Bone Spurs cataract removal lasik
--- OUTSIDE RECORDS SUMMARY | 2025-04-11 13:39 | XMS_ITS | Clinical Summary ---
Author Organization [facility] Address [address] [address] Phone Care Team Providers Care Burnisher Name Role Phone Brianna Pandya Primary Care Provider Allergies No known active allergies Medications baclofen (LIORESAL) 5 mg tablet Take 1 Tablet by mouth 3 times daily. Active losartan (COZAAR) 100 mg tablet Take 1 tablet (100 mg total) by mouth 1 (one) time each day. 06/19/2024 Active tamsulosin (FLOMAX) 0.4 mg 24 hr [...] EVERY DAY 90 tablet 1 11/02/2024 Active acetaminophen (TYLENOL) 500 mg tablet Take 1 tablet (500 mg total) by mouth every 6 (six) hours if needed for mild pain. Active Eliquis 5 mg tablet TAKE 1 TABLET TWICE DAILY 180 tablet 3 03/01/2025 Active Active Problems Problem Noted Date Diagnosed [...] disease invo lving coronary bypass graft of [place] heart without angina pectoris 10/08/2021 Overview (07/25/2024): [...] his dietary fat intake. Paroxysmal atrial fibrillation ([facility]/HCC V24, [facility] /HCC V28) 10/08/2021 Overview (07/25/2024): Last Assessment & Plan: Denies perception of recurrence of arrhythmia. Continues to be anticoagulated on Eliquis for stroke reduction. His [id number] score is 3 for age greater than [...] Encounters Date Type Department Care Team Description 04/09/2025 1:29 PM EDT Anesthesia Event [facility] [address] [place] [address] Bobo Varela MD Hayes, Brett L, BETSY 04/09/2025 12:27 PM EDT Hospital Encounter [facility] [address] [place] [address] Gigi Ferrara MD Nonrheumatic aortic (valve) stenosis 03/16/2025 Telephone [facility] Cardiology [facility] [address] [place] [address] Gigi Ferrara MD Procedure (ALDO 8.4.25) 03/12/2025 12:30 PM EDT Ancillary Procedure [facility] [address] [place] [address] Nonrheumatic aortic valve stenosis 03/05/2025 Telephone [facility] [address] [place] [address] Jessica Bradley NP records 02/28/2025 Telephone [facility] - [address] [place] [address] Jessica Bradley NP 02/13/2025 12:45 PM EDT Ancillary Procedure [facility] - [address] [place] [address] Dizziness 02/05/2025 2:40 PM EDT Office Visit [facility] [address] [place] [address] Jessica Bradley NP Nonrheumatic aortic valve stenosis (Primary Dx); Dizziness; Coronary artery disease involving coronary bypass graft of [place] heart without angina pectoris; Paroxysmal atrial fibrillation [...] Sign Reading Time Taken Comments Blood Pressure 137/70 04/09/2025 2:40 PM EDT Pulse 71 04/09/2025 2:40 PM EDT Temperature 36.7 C (98.1 F) 04/09/2025 12:54 PM EDT Respiratory Rate 18 04/09/2025 2:40 PM EDT Oxygen Saturation 96% 04/09/2025 2:40 PM EDT Inhaled Oxygen Concentration - - Weight 83.5 kg (184 lb) 04/09/2025 12:54 PM EDT Height 181 cm (5' 11.26 ) 04/09/2025 12:54 PM ED T Body Mass Index 25.48 04/09/2025 12:54 PM EDT Plan of Treatment Health Maintenance Due Date [...] 07/18/2015 Zoster Vaccines Completed 12/04/2020, 1209/2019, 05/21/2015 HIB Vaccines Aged Out No longer [...] Procedure Name Priority Date/Time Associated Diagnosis Comments ALDO COMPLETE W/COLOR FLOW AND SPECTRAL DOPPLER Routine 04/09/2025 2:05 PM EDT Nonrheumatic aortic (valve) stenosis EXTERNAL CLINICAL LAB Routine 03/27/2025 8:45 AM EDT TRANSTHORACIC ECHOCARDIOGRAM (TTE) COMPLETE Routine 03/12/2025 1:26 PM EDT Nonrheumatic aortic valve stenosis VAS US DUPLEX CAROTID BILATERAL Routine 02/13/2025 1:00 PM EDT Dizziness LIPID PANEL Routine 05/22/2022 from Last 3 Months or Most Recently Relevant to Health Maintenance Results * ALDO COMPLETE W/COLOR FLOW AND SPECTRAL DOPPLER (04/09/2025 2:05 PM EDT) BSA 2.05 m2 CV PACS MV Mean Gradient 3 mmHg CV PACS Aortic Sinus Valsalva 2.8 cm CV PACS Anatomical Region Laterality Modality X-Ray Angiograph y Addenda Addendum by Gigi Ferrara MD on 04/09/2025 4:55 PM EDT Left ventricle cavity size is normal. Left ventricular systolic function is low normal with an ejection fraction of 50-55%. Right ventricular systolic function is normal. The valve has been surgically replaced. There is a 23 mm pericardial bioprosthetic valve. The prosthetic valve appears well-seated. Valve leaflet motion is restricted. There is trace transvalvular regurgitation. 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 The valve area by planimetry measures ~1.2 cm2. Left Ventricle Left ventricle cavity size is normal. Systolic function is low normal with an ejection fraction of 50-55%. Right Ventricle Systolic function is normal. Left Atrium There is no thrombus in the cavity or appendage. There is no mass in the cavity or appendage. Right Atrium There is no thrombus in the right atrial cavity. There is no mass in the right atrial cavity. Mitral Valve The leaflets are mildly thickened. The leaflets are calcified. There is mild annular calcification. There is mild regurgitation. There is no significant stenosis noted. Tricuspid Valve The leaflets are not thickened. There is trace regurgitation. There is no evidence of tricuspid valve stenosis. Aortic Valve The valve has been surgically replaced. There is a 23 mm pericardial bioprosthetic valve. The prosthetic valve appears well-seated. Valve leaflet motion is restricted. There is trace transvalvular regurgitation. 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 The valve area by planimetry measures ~1.2 cm2. Pulmonic Valve There is trace pulmonic valve regurgitation. There is no evidence of pulmonic valve stenosis. Ascending Aorta Mild plaque seen in the descending thoracic aorta. Pericardium There is no pericardial effusion. Study Details Overall the study quality was adequate. A transesophageal echo was performed using 3D imaging and postprocessing performed without an independent workstation. The underlying ECG rhythm was sinus rhythm. The procedure, risks and alternatives were explained. Informed consent was obtained. The probe was inserted by the wildlife refuge manager. There was no probe insertion difficulty. Moderate sedation was administered by anesthesia. The patient had no complications. Estimated blood loss: no blood loss. No specimens were collected. us Jessica Bradley NP CV ECHO PROCEDURES Pieter hollie Result - Final * External clinical lab (03/27/2025 8:45 AM EDT) Historical Provider LAB BLOOD ORDERABLES Libby quintero Result * (ABNORMAL) TRANSTHORACIC ECHOCARDIOGRAM (TTE) COMPLETE (03/12/2025 [...] Interpretation was done according to the [place] Symptomatic Carotid Endarterectomy Trial (NASCET) criteria and [...] has minimal plaque. Vertebral flow is antegrade. Environmental Control Administrator Details A hong scale, color and doppler [...] Most Recently Relevant to Health Maintenance Insurance MEDICARE [facility] Care Teams Burnisher Relationship Specialty Start Date End Date Brianna Pandya FNP [address] [place] [address] [place] [address] PCP - General Nurse Practitioner 03/01/25
== END 2025-04-11 13:44 | disposition home or self-care (01) ==
LOC: HO.HMCFM 13:05
PROVIDERS: PCP Nurse Practitioner Family; Visit Provider Nurse Practitioner Family
DX: R21 Rash and other nonspecific skin eruption (principal)

== ENCOUNTER → 2025-04-11 13:05 | Outpatient (BNVA) | payer MEDICARE, SELFPAY | PROVIDERS: PCP Nurse Practitioner Family; Visit Provider Nurse Practitioner Family | DX: R21 Rash and other nonspecific skin eruption (principal) | CPT/HCPCS: 96127; 99212 ==

== ENCOUNTER 2025-06-29 12:22 | Outpatient (REF) | payer MEDICARE, SELFPAY ==
[2025-06-29 14:53] LABS: Hematocrit 38.6 % (42.0-52.0); Hemoglobin 11.9 g/dl (14.0-18.0); Mean Corpuscular HGB Conc 30.8 g/dl (31.0-36.0); Mean Corpuscular Hemoglobin 26.4 pg (27.0-33.0); Mean Corpuscular Volume 85.8 fL (80.0-98.0); NRBC Abs Auto 0.000 X10*3/uL (0.0-0.012); NRBC Pct Auto 0.0 /100WBC (0.0-0.2); Platelet Count 263 X10*3/uL (160-400); Red Blood Count 4.50 X10*6/uL (4.60-5.80); White Blood Count 9.5 X10*3/uL (4.8-10.8)
[2025-06-29 15:47] LABS: Microalbum/Creatinine Ratio Ur 11.3 ug/mg cr (<30)
[2025-06-29 15:50] LABS: Cholesterol 136 mg/dL (<200); Ferritin 29 ng/mL (20-250); HDL Cholesterol 56 mg/dL (>40); Iron 41 mcg/dL (45-160); Lipase 17 U/L (8-78); Percent Iron Saturation 12 % (15-50); Total Iron Binding Capacity 352 mcg/dL (228-428); Triglycerides 102 mg/dL (<150); Unsaturated Iron Binding 311 ug/dL
[2025-06-29 15:56] LABS: Folate 9.5 ng/mL (> or = 4.0); Vitamin B12 528 pg/mL (200-900)
[2025-06-29 16:43] LABS: Amylase 55 U/L (28-100)
== END 2025-06-29 12:23 | disposition home or self-care (01) ==
LOC: HO.WFDLDS 12:22
PROVIDERS: PCP Nurse Practitioner Family; Visit Provider Nurse Practitioner Family
DX: Z23 Encounter for immunization (principal); I10 Essential (primary) hypertension; I48.0 Paroxysmal atrial fibrillation; I25.10 Atherosclerotic heart disease of native coronary artery without angina pectoris; D68.69 Other thrombophilia; E11.9 Type 2 diabetes mellitus without complications; K64.8 Other hemorrhoids; D64.9 Anemia, unspecified; D36.9 Benign neoplasm, unspecified site; R63.4 Abnormal weight loss; R68.81 Early satiety; R19.5 Other fecal abnormalities; R21 Rash and other nonspecific skin eruption; L81.9 Disorder of pigmentation, unspecified; R29.6 Repeated falls; M25.511 Pain in right shoulder; R41.89 Other symptoms and signs involving cognitive functions and awareness; Z79.01 Long term (current) use of anticoagulants; Z79.899 Other long term (current) drug therapy
CPT/HCPCS: 36415; 80061; 82043; 82150; 82306; 82570; 82607; 82728; 82746; 83036; 83540; 83690; 85027; 90471; 90656; 99212

== ENCOUNTER 2025-06-29 12:22 | Outpatient (AMB) | payer MEDICARE, SELFPAY ==
[2025-06-29 12:26] VITALS: BP 144/70; PULSE 98; O2SAT 97; BMI 25.9
--- NOTE | 2025-06-29 12:26 | A.OFFPC_ITS ---
Vital Signs 06/29/25 12:26 Height 5 ft 11 in Weight 186 lb BMI 25.9 BP 144/70 H Blood Pressure Location Lt brachial Position Sitting Pulse 98 Pulse Source Pulse Oximeter Pulse Oximetry (%) 97 Intake Visit Reasons: 3 months 30 min routine complex fu Allergies No Known Allergies Allergy (Verified 06/29/25 12:26) Medication List - Last Reconciled 06/29/25 by Brianna Pandya, [facility]- allopurinol 300 mg PO DAILY amlodipine 5 mg PO DAILY apixaban (Eliquis) 5 mg PO BID betamethasone dipropionate 0.05% 1 appl topical BID 14 days cetirizine (Zyrtec) 10 mg PO DAILY famotidine 20 mg PO BEDTIME fenofibrate nanocrystallized 145 mg PO DAILY finasteride 5 mg PO DAILY furosemide 20 mg PO DAILY gabapentin 300 mg PO BEDTIME losartan 100 mg PO DAILY metoprolol succinate ER 100 mg PO DAILY simvastatin 40 mg PO BEDTIME tamsulosin 0.4 mg PO DAILY Tobacco use date assessed: 04/11/25 Fall risk assessment: No Falls in past year Last assessed Fall Risk: 06/29/25 Dental Screening Dental Screen Date: 04/11/25 HPI HPI Comments History of Present Illness Details 'Mahesh' 85 y/o M with CAD, HTN, severe aortic va lve stenosis s/p bioprostethic AVR, PAF on eliquis, HLD, CHF (echo 09/202324 Grade 2 diastolic dysfunction EF 55-60%), multiple falls, BPH with urinary retention, gout, DM2, anemia s/p CABG TYLER to the LAD, SVG, hemorrhoidectomy, bilat cataract surgery Fhx: Mom 64, Dad 62, 1 sister, 3 children (2 girls 1 boy) Social: ( Etta), 2 dtrs Michelle and Alesha Testin02/13/25 Carotid US Bilat: minimal athe rosclerotic plaque , < 50% stenosis Echo ordered and pending Stress test 08/2024 [facility] Health Maintenance Pedro 2021 Dr Dunlap repeat 3-5 years Flu 06/29/25 Specialists: [facility] - visit note from 02/13/25 reviewed. Derm ? malignancy on back Taylor Silk @ [facility], [address] [facility] annually [facility] [place] 07/2024, visit q 6 months History of Present Illness - Cardiovascular history includes ortez ry artery disease and paroxysmal atrial fibrillation. On Eliquis and metoprolol. - Known chronic anemia with Hb 11.6, Hct 35.8, with down trending based on most recent labs. He is having some hemorrhoidal bleeding after stopping metamucil. New c/o wt loss, early satiety, no interest in eating. This started over the last few months. Denies n/v/d, fever. - Type 2 Diabetes with A1c of 6.6% in Ma y 2024. Due for repeat today; diet controlled. - Chronic memory impairment noted. Fly e, - Skin rash: cont to plague him; he was seen at [facility] x 2. he is a poor historian; i dont have records; appears bx of back lesion taken; unsure of pathology or plan. The rash persists; itchy. New rash on L arm. HE was given 30 days of mariella 300 mg that did nothing to reduce or improve his sx. i have asked my staff to call and get these records for my review KATE. - HTN well controlled on current meds - Cont to have falls; declined PT/Fall p revention. Injured R shoulder 3 weeks ago. OFfered and declined PT or ortho referral. He wants to see if it will heal itself.DOes hurt @ night and keeps him awake. Review of Systems - Cardiovascular: Reports dizziness and lightheadedness; denies chest pain. - Musculoskeletal: Reports recurrent fal ls, shoulder, and hip injuries. - Dermatological: Reports rash and bruis ing easily; denies unhealed wounds. - Neurological: Reports memory impairmen t; denies headaches or seizures. - Endocrine: Reports known diabetes; den ies unexpected weight changes. - Urinary: Denies significant urinary is sues beyond known BPH symptoms. Exam Awake alert NAD Scleras nonicteric bilat RRR, 2/6 murmur LS CTAB mildly diminished bilat BLE no edema, + PP Posterior upper back, midline, is raised suspicious skin lesion s/p BX; on arms and legs scattered purpura; posterior R ankle and dorsum L hand is a faint pink rash; the ankle one w/ secondary excoriation; no signs of infection; Rash to left forearm that has traumatic ecchymosis . Alert, oriented, no great w/ details. Mood and affect appropriate Results Pending Discussion Notes We discussed the patient's current presentation, which includes a persistent rash, recent episodes of right shoulder pain due to falls, and unintentional weight loss. I advised obtaining dermatology records from [facility] for further evaluation of the rash. Regarding the R shoulder pain, I suggested monitoring the right shoulder and possibly getting in touch with orthopedics if symptoms persist. We will also perform blood tests and schedule a CT scan of the abdomen to assess unexplained weight loss and ensure no underlying pathology is being missed. The patient was informed about all the planned diagnostic and therapeutic steps including possible outcomes and future visit logistics. Patient was given time to ask questions. All questions were answered to their satisfaction. Assessment and Plan 1. Recurrent Falls - Implement fall prevention strategies. Declined PT R shoulder pain declined intervention; if cont to bother him can consult [facility]. OTC analgesics prn 2. Coronary Artery Disease and Paroxysma l Atrial Fibrillation - Continue medications: Metoprolol, Eliq uis. - Cardiology follow-up 3. Chronic Anemia/Hemorrhoids w/ bleedin g now assoc w/ wt loss - Monitor hemoglobin, hematocrit. - Explore underlying causes. - Cont OTC metamucil - Stat CT of abd 4. Rash - Records from [facility]. 5. Type 2 Diabetes Mellitus - Continue current management. - Monitor A1c and glucose. Consent Patient was informed and verbally consented to the use of an ambient scribe for clinic note documentation during this visit. Total time spent caring for the patient today was 60 minutes. This includes time spent before the visit reviewing the chart, time spent during the visit, and time spent after the visit on documentation, reviewing laboratory results, diagnostic imaging, medications, performing a medically necessary evaluation, counseling on diagnoses, care coordination, ordering appropriate tests, ordering appropriate medications, review of tests performed by other providers, reporting test results with the patient, communication with other healthcare providers. [facility] Medical History Rash and nonspecific skin eruption No pertinent family history History of cardioversion PAF (paroxysmal atrial fibrillation) CAD (coronary artery disease) Aortic stenosis Chronic renal insufficiency Gout BPH (benign prostatic hyperplasia) Elevated cholesterol HTN (hypertension) Surgical History Hx of aortic valve replacement Hx of CABG Hx of cataract extraction Hx of elbow surgery History of open heart surgery Hx of colonoscopy (~2021) Social History Household Members: Spouse Household Members Other:: - healthy Both parents involved: No Caregiver staying overnight: No Housing: House Are you a primary resident caregiver to a significant other at home: No Do you presently have visiting nurse or other home services: No 75 years or older and lives alone: No Alcohol intake: current Alcohol intake frequency: a few times a month Patient Tobacco Use Status: Never used Tobacco e-Cigarette/Vaping Use: Never Used Second Hand Smoke Exposure: No Advance Directives Date on File: 04/18/19 service: No Current occupational status: retired Current occupation: left handed Current occupational exposures/hazards: No Cognitive needs: No Hearing needs: No Vision needs: Yes (reading glasses) Questionnaire Thrive Questionnaire Date Thrive assessed: 03/21/25 I am a: Patient What is your living situation today?: I have a steady place to live Within the past 12 months, did the food you bought not last and you didn't have the money to get more?: Never true Within the past 12 months, did you worry whether your food would run out before you got money to buy more?: Never true Do you have trouble paying for medicines?: No Do you have trouble getting transportation to medical appointments?: No Do you have trouble paying your heating and electricity bill?: No Do you have trouble taking care of your child, family member or friend?: No Do you have trouble with day-to-day activities such as bathing, preparing meals, shopping, managing finances, etc.?: No Are you currently unemployed and looking for a job?: No Are you interested in more education?: No Please select the resources that you would like help with: None Currently or been in a relationship where the following occur: No concerns reported THRIVE Score: 0 JUANITA-7 AMB Questionnaire JUANITA-7 Date JUANITA - 7 assessed: 04/11/25 Source: Developed by Drs. Roger Oates, Nayana Quinones, Charly Lerner and colleagues, with an educational david from [employer]. Physical exam (Primary Care) Vital Signs: Last Vital Signs Pulse 98 06/29/25 12:26 BP 144/70 H 06/29/25 12:26 Pulse Ox 97 06/29/25 12:26 BMI result Body Mass Index 25.9 Tobacco/Smoking Status: Tobacco use Status Tobacco use date assessed 04/11/25 06/29/25 12:27 Patient Tobacco Use Status Never used Tobacco 06/29/25 12:27 Tobacco use type 03/06/25 11:28 e-Cigarette/Vaping Use Never Used 06/29/25 12:27 Thrive Assessment: Date of Thrive Assessment Date Thrive assessed 03/21/25 06/29/25 12:27 Currently or been in a relationship where the following occur: No concerns reported Office Procedures Flu Questionnaire Does the patient have a severe egg allergy?: No Does the patient have severe life threatening allergies?: No Does the patient have a fever or illness today?: No Has the patient ever had Guillain-[place] Syndrome?: No Has the patient ever had any past reaction to a flu shot?: No Immunizations Fluarix [id number] (PF) 45 mcg (15 mcg x 3)/0.5 mL IM syringe Performing Provider: MICHELL Corrigan Performing Location: [facility] Administered by: Rashaad Ceja CMA on 06/29/25 12:37 Dose Route Admin Location Dispensed Lot Number Expiration Date [facility] [employer] 0.5 mL IM Right Deltoid 0.5 mL [id number] 03/05/26 [id number] [employer] VIS Given Date VIS Provided VIS Publication Date 06/29/25 Single Vaccine 24 Eligibility Eligibility Date Funding Source Not [facility] Eligible 06/29/25 Private Coding Level of Care Code Est Pt Level 5 (73711) Complex EM visit Add On G2211 Diagnoses Weight loss R63.4 Early satiety R68.81 Type 2 diabetes mellitus without complication, without long-term current use of insulin E11.9 Diabetes mellitus complication status: without complication Diabetes mellitus skilled nursing insulin use: without terminal operator use Primary hypertension I10 Hypertension type: primary hypertension Coronary artery disease involving [place] coronary artery of [place] heart without angina pectoris I25.10 Coronary Disease-Associated Artery/Lesion type: [place] artery [place] vs. transplanted heart: [place] heart Associated angina: without angina PAF (paroxysmal atrial fibrillation) I48.0 Anticoagulant long-term use Z79.01 Secondary hypercoagulable state D68.69 Anemia, unspecified type D64.9 Anemia type: unspecified type Heme positive stool R19.5 Rash and nonspecific skin eruption R21 Atypical pigmented skin lesion L81.9 Multiple falls R29.6 Right shoulder pain M25.511 Cognitive impairment R41.89 Influenza vaccination administered at current visit Z23 Assessment & Plan Assessment & Plan (1) Weight loss: Code(s): R63.4 - Abnormal weight loss Category: Medical (2) Early satiety: Code(s): R68.81 - Early satiety Category: Medical (3) DM2 (diabetes mellitus, type 2): Code(s): E11.9 - Type 2 diabetes mellitus without complications Category: Medical Qualifiers: Diabetes mellitus complication status: without complication Diabetes mellitus skilled nursing insulin use: without skilled nursing use Qualified Code(s): E11.9 - Type 2 diabetes mellitus without complications (4) HTN (hypertension): Code(s): I10 - Essential (primary) hypertension Category: Medical Qualifiers: Hypertension type: primary hypertension Qualified Code(s): I10 - Essential (primary) hypertension (5) CAD (coronary artery disease): Code(s): I25.10 - Atherosclerotic heart disease of [place] coronary artery without angina pectoris Category: Medical Qualifiers: Coronary Disease-Associated Artery/Lesion type: [place] artery [place] vs. transplanted heart: [place] heart Associated angina: without angina Qualified Code(s): I25.10 - Atherosclerotic heart disease of [place] coronary artery without angina pectoris (6) PAF (paroxysmal atrial fibrillation): Code(s): I48.0 - Paroxysmal atrial fibrillation Category: Medical (7) Anticoagulant long-term use: Comment: Apixaban-to be discontinued 2 days prior to colonoscopy if appropriate must be cleared by Cardiology Code(s): Z79.01 - [facility] (current) use of anticoagulants Category: Medical (8) Secondary hypercoagulable state: Comment: ON ELIMAINORIS, D/T AFIB Code(s): D68.69 - Other thrombophilia Category: Medical (9) Anemia: Code(s): D64.9 - Anemia, unspecified Category: Medical Qualifiers: Anemia type: unspecified type Qualified Code(s): D64.9 - Anemia, unspecified (10) Heme positive stool: Comment: hx hemorrhoids on colo report-anticoagulation- may likely be cause- Code(s): R19.5 - Other fecal abnormalities Category: Medical (11) Rash and nonspecific skin eruption: Code(s): R21 - Rash and other nonspecific skin eruption Category: Medical (12) Atypical pigmented skin lesion: Code(s): L81.9 - Disorder of pigmentation, unspecified Category: Medical (13) Multiple falls: Code(s): R29.6 - Repeated falls Category: Medical (14) Right shoulder pain: Code(s): M25.511 - Pain in right shoulder Category: Medical (15) Cognitive impairment: Code(s): R41.89 - Other symptoms and signs involving cognitive functions and awareness Category: Medical (16) Influenza vaccination administered at current visit: Onset Date: ~06/29/25 Code(s): Z23 - Encounter for immunization Category: Medical Plan . Orders: Orders Amylase Today R63.4 - Abnormal weight loss, R68.81 - Early satiety Lipase Today R63.4 - Abnormal weight loss, R68.81 - Early satiety CT abdomen pelvis wo IV con Today R63.4 - Abnormal weight loss, R68.81 - Early satiety Influenza [id number] Immunization Today Z23 - Encounter for immunization Hemoglobin A1c Today E11.9 - Type 2 diabetes mellitus without complications
--- OUTSIDE RECORDS SUMMARY | 2025-06-29 14:27 | XMS_ITS | Clinical Summary ---
Author Organization [facility] [employer] Address [address] [address] Phone Care Team Providers Care Web Designer Developer Name Role Phone Brianna Pandya Primary Care [...] disease invo lving coronary bypass graft of [place] heart without angina pectoris 10/08/2021 Overview (07/25/2024): [...] his dietary fat intake. Paroxysmal atrial fibrillation ([facility]/HCC V24, [facility] /HCC V28) 10/08/2021 Overview (07/25/2024): Last Assessment & Plan: Denies perception of recurrence of arrhythmia. Continues to be anticoagulated on Eliquis for stroke reduction. His [id number] score is 3 for age greater than [...] Encounters Date Type Department Care Team Description 05/02/2025 Telephone [facility] - [phone] Gigi Ferrara MD 04/09/2025 1:29 PM EDT Anesthesia Event [facility] Cardiac Construction Services Technician [address] [place] [phone] Bobo Varela MD Hayes, Brett L, BETSY 04/09/2025 12:27 PM EDT - 04/09/2025 11:59 PM EDT Hospital Encounter [facility] Cardiac Construction Services Technician [address] [place] [phone] Gigi Ferrara MD Nonrheumatic aortic (valve) stenosis Discharge Disposition: Home or Self Care from Last 3 Months Social History Tobacco [...] 08/09/2022 Hypertension/CHF/CAD Annual BMP Blood Test 08/15/2022 Depression Screening 09/06/2024 COVID-19 Vaccine ( - season) 2025 06/24/2021, 11/01/2020, 10/09/2020 Influenza Vaccine (#1) 2025 , 06/06/2023, 05/31/2023, [...] 2:05 PM EDT Nonrheumatic aortic (valve) stenosis LIPID PANEL Routine [...] obtained. The probe was inserted by the supervisor sulfuric acid plant. There was no probe insertion difficulty. Moderate sedation was administered by anesthesia. The patient had no complications. Estimated blood loss: no blood loss. No specimens were collected. Jessica Bradley SUPERVISOR PAINT CV ECHO PROCEDURES Pieter hollie Result - Final * Lipid panel (05/22/2022) Triglycerides 157 mg/dL Cholesterol 181 mg/dL HDL 57 mg/dL Blood Venous blood specimen / Unknown Historical Provider LAB BLOOD ORDERABLES Libby l Result from Last 3 Months or Most Recently Relevant to Health Maintenance Insurance MEDICARE [facility] Care Teams Web Designer Developer Relationship Specialty Start Date End Date Brianna Pandya FNP [address] [place] [address] [place] [phone] PCP - General Nurse Practitioner 03/01/25
--- OUTSIDE RECORDS SUMMARY | 2025-06-29 14:27 | XMS_ITS | Patient Health Record ---
Author Organization [facility] Address [address] [place] [address] Care Team Providers Care Speech And Drama Teacher Name Role Phone Tono Collado MD Primary Care Provider Unavailab Christiano Duffy Unavailable [phone] Reason For Referral No Information Medications Medication [...] Status W/U Status Risk Notes Problem Bursitis (30297012) Bursitis (727.3) Active confirmed Problem Myositis (94503478) Myositis (729.1) Active confirmed Problem Pain in limb (73393209) Pain in Limb (729.5) Active confirmed Problem Plantar fasciitis (617788585) Plantar Fasciitis (728.71) Active confirmed Problem Calcaneal spur (76251681) Calcaneal spur (726.73) Active confirmed Plan Of Treatment No Information Insurance Providers Payer Name Payer Address Payer Phone Subscriber Number Group Number Insured Name Patient Relationship to Insured Coverage Start Date Coverage End Date Medicare [facility] [employer] [address] [place] [phone] [id number] August Gamino Self - patient is the insured [employer] [address] [place] [address] [id number] August Gamino Self - patient is the insured Medical (General) History Medical History History ICD Code Gout high blood pressure measles chicken pox Surgical History Surgery Date(Month/Year) Bone Spurs cataract removal lasik
== END 2025-06-29 13:13 | disposition home or self-care (01) ==
LOC: HO.HMCFM 12:22
PROVIDERS: PCP Nurse Practitioner Family; Visit Provider Nurse Practitioner Family
DX: R63.4 Abnormal weight loss (principal); R68.81 Early satiety; E11.9 Type 2 diabetes mellitus without complications; I10 Essential (primary) hypertension; I25.10 Atherosclerotic heart disease of native coronary artery without angina pectoris; I48.0 Paroxysmal atrial fibrillation; Z79.01 Long term (current) use of anticoagulants; D68.69 Other thrombophilia; D64.9 Anemia, unspecified; R19.5 Other fecal abnormalities; R21 Rash and other nonspecific skin eruption; L81.9 Disorder of pigmentation, unspecified; R29.6 Repeated falls; M25.511 Pain in right shoulder; R41.89 Other symptoms and signs involving cognitive functions and awareness; Z23 Encounter for immunization

== ENCOUNTER 2025-07-02 15:37 | Outpatient (REF) | payer MEDICARE, SELFPAY ==
--- NOTE | ~2025-07-02 | CT_ITS ---
EXAMINATION: CT ABDOMEN AND PELVIS WITHOUT CONTRAST CLINICAL INFORMATION: R63.4 - Abnormal weight loss COMPARISON: April 18, 2019 TECHNIQUE: Multidetector volumetric imaging was performed from the superior aspect of the liver through the pubic symphysis. Sagittal and coronal reformatted images were obtained on the technologist's workstation. This CT examination was performed using dose optimization techniques as appropriate, variously including the following: *Automated exposure control *Adjustment of mA and/or kV according to patient size (this includes techniques or standardized protocols for targeted exams where dose is matched to indication/reason for exam; i.e. extremities or head) *Use of iterative reconstruction technique FINDINGS: LUNG BASES: The visualized lung bases are unremarkable. LIVER, GALLBLADDER, AND BILIARY TREE: The liver is normal in size, shape, and attenuation. No focal hepatic lesion or biliary ductal dilatation is present. A few small layering calcified stones are visible in the gallbladder PANCREAS: Unremarkable. SPLEEN: Unremarkable. ADRENAL GLANDS: Unremarkable. KIDNEYS AND URETERS: Small punctate calcifications are present in the right greater than left kidneys, probably vascular in nature, but small stones could also be present. BLADDER: Partially decompressed GASTROINTESTINAL TRACT: Plane between sigmoid colon and bladder is been obliterated since the prior examination where there was diverticulitis with evidence of microperforation in this region. There appears to be an enlarged outpouching probably projecting from the sigmoid colon and contacting superior wall of bladder. It appears filled with stool and measures 5.9 cm x 4.7 cm (AP by transverse). A few scattered pseudodiverticula are present throughout the colon. The appendix is gas-filled and thin-walled. ABDOMINAL WALL: No significant hernia is appreciated. LYMPH NODES: Normal. VASCULAR: Moderate vascular calcifications are present PELVIC VISCERA: Unremarkable. OSSEOUS STRUCTURES: Multilevel degenerative changes are evident in the thoracal lumbar spine with syndesmophytes in the lower thoracic spine suggesting underlying ankylosing spondylitis. CT/CT abdomen pelvis wo IV con IMPRESSION: There is a 5.9 x 4.7 cm structure contacting the superior margin the bladder that appears stool filled and could be an enlarged diverticulum or pseudodiverticulum that probably communicates with the sigmoid colon. This appears in the region where on the prior examination, there was evidence of an acute diverticulitis with microperforation. If there is concern for abscess, and if further evaluation is warranted, rectal contrast could possibly help demonstrate whether or not the collection communicates with sigmoid colon. Cholelithiasis. Fleischner guidelines were followed. Electronically signed by: Cipriano Crews MD 07/02/2025 04:24 PM EDT
--- OUTSIDE RECORDS SUMMARY | 2025-07-02 18:42 | XMS_ITS | Patient Health Record ---
Author Organization [facility] Address [address] [place] [address] Care Team Providers Care Cruise Consultant Name Role Phone Tono Collado MD Primary Care Provider Unavailab Christiano Duffy Unavailable [phone] Reason For Referral No Information Medications Medication [...] Status W/U Status Risk Notes Problem Bursitis (50142378) Bursitis (727.3) Active confirmed Problem Myositis (81274128) Myositis (729.1) Active confirmed Problem Pain in limb (99515476) Pain in Limb (729.5) Active confirmed Problem Plantar fasciitis (067933268) Plantar Fasciitis (728.71) Active confirmed Problem Calcaneal spur (55352386) Calcaneal spur (726.73) Active confirmed Plan Of Treatment No Information Insurance Providers Payer Name Payer Address Payer Phone Subscriber Number Group Number Insured Name Patient Relationship to Insured Coverage Start Date Coverage End Date Medicare [facility] [employer] [address] [place] [phone] [id number] August Gamino Self - patient is the insured [employer] Blue [employer] [address] [place] [address] [phone] [id number] August Gamino Self - patient is the insured Medical (General) History Medical History History ICD Code Gout high blood pressure measles chicken pox Surgical History Surgery Date(Month/Year) Bone Spurs cataract removal lasik
--- OUTSIDE RECORDS SUMMARY | 2025-07-02 18:42 | XMS_ITS | Clinical Summary ---
Author Organization [facility] [employer] Address [address] [address] Phone Care Team Providers Care Painter Railroad Car Name Role Phone Brianna Pandya Primary Care [...] disease invo lving coronary bypass graft of [place] heart without angina pectoris 10/08/2021 Overview (07/25/2024): [...] his dietary fat intake. Paroxysmal atrial fibrillation ([facility]/HCC V24, [facility] /HCC V28) 10/08/2021 Overview (07/25/2024): Last Assessment & Plan: Denies perception of recurrence of arrhythmia. Continues to be anticoagulated on Eliquis for stroke reduction. His [id number] score is 3 for age greater than [...] Type Department Care Team Description 05/02/2025 Telephone [facility] - [address] [place] [phone] Gigi Ferrara MD 04/09/2025 1:29 PM EDT Anesthesia Event [facility] Cardiac Bindery Worker [address] [place] [phone] Bobo Varela MD Hayes, Brett L, BETSY 04/09/2025 12:27 PM EDT - 04/09/2025 11:59 PM EDT Hospital Encounter [facility] Cardiac Bindery Worker [address] [place] [phone] Gigi Ferrara MD Nonrheumatic aortic (valve) stenosis [...] obtained. The probe was inserted by the warehouse operations associate. There was no probe insertion difficulty. Moderate sedation was administered by anesthesia. The patient had no complications. Estimated blood loss: no blood loss. No specimens were collected. Jessica Bradley INSPECTOR WATER POLLUTION CONTROL CV ECHO PROCEDURES Pieter hollie Result - Final * Lipid panel (05/22/2022) Triglycerides 157 mg/dL Cholesterol 181 mg/dL HDL 57 mg/dL Blood Venous blood specimen / Unknown Historical Provider LAB BLOOD ORDERABLES Libby l Result from Last 3 Months or Most Recently Relevant to Health Maintenance Insurance MEDICARE [facility] Care Teams Painter Railroad Car Relationship Specialty Start Date End Date Brianna Pandya FNP [address] [place] [address] [place] [phone] PCP - General Nurse Practitioner 03/01/25
== END 2025-07-02 15:38 | disposition home or self-care (01) ==
LOC: HO.CT 15:37
PROVIDERS: PCP Nurse Practitioner Family; Visit Provider Nurse Practitioner Family
DX: R68.81 Early satiety (principal); R63.4 Abnormal weight loss
CPT/HCPCS: 74176

== ENCOUNTER → 2025-07-02 15:40 | Outpatient (BNV) | payer MEDICARE, SELFPAY | PROVIDERS: PCP Nurse Practitioner Family; Visit Provider Radiology Diagnostic Radiology | DX: R63.4 Abnormal weight loss (principal) | CPT/HCPCS: 74176 ==

== ENCOUNTER 2025-07-05 14:03 | Outpatient (REF) | payer MEDICARE, SELFPAY ==
[2025-07-05 17:53] LABS: Appearance Urine Clear; Glucose Urine UA Negative (Negative); PH 5.0 (5.0-9.0); Specific Gravity - Urine >= 1.030 (1.005-1.025); UMIC TRIGGER UACC YES
[2025-07-05 18:08] LABS: UACC Culture Trigger YES
== END 2025-07-05 14:04 | disposition home or self-care (01) ==
LOC: HO.LAB 14:03
PROVIDERS: PCP Nurse Practitioner Family; Visit Provider Internal Medicine Gastroenterology
DX: R93.3 Abnormal findings on diagnostic imaging of other parts of digestive tract (principal)
CPT/HCPCS: 81001; 87086

== ENCOUNTER 2025-07-19 14:13 | Outpatient (AMB) | payer MEDICARE, SELFPAY ==
--- NOTE | 2025-07-19 14:18 | A.OFFVIS_ITS ---
Vital Signs 07/19/25 14:19 Height 5 ft 11 in Weight 184 lb 4 oz BMI 25.7 BP 120/57 L Blood Pressure Location Rt brachial Position Sitting Pulse 91 Intake Visit Reasons: abnormal ct, sigmoid colon Intake Note: Patient presents for an assessment for abnormal ct, sigmoid colon. Pt c/o; patient is on Eliquis prescribed by at [facility], reports Hx of heart surgery, reports no complaints at this time. DI: 07/02/2025: Abd/pelvis CT Last Pattern Grader Required: No Accompanied by: Spouse Allergies No Known Allergies Allergy (Verified 07/19/25 14:27) HPI HPI abnormal ct, sigmoid colon: Details: 85-year-old male referred to me for an abnormal CAT scan. He underwent an outpatient CAT scan as ordered by his primary care provider in view of his drains of weight loss. This had shown a stool-filled structure adjacent to the sigmoid in the bladder that appears to be a large diverticulum, measuring over 5 cm. He otherwise denies any significant GI complaints. Denies any pain. He denies any problems with bowel movements. He denies any problems urination. He says he does not have any abdominal pain at all. He had a colonoscopy in [address] De Leon which showed wide mouthed diverticulosis as well as hemorrhoids. A tubular adenoma from the sigmoid and the transverse colon were removed as well at that time. He describes having lost maybe about 8 lb the past 2 months. He describes having poor appetite as well. He says this started when he had he had a rash all over his body. He says that the rash has somewhat improved are still present. He has started seeing a ambulance driver paramedic for this. [facility] Medical History (Updated 07/19/25 @ 14:53 by Uvaldo Miles MD) Abnormal CT scan, gastrointestinal tract Rash and nonspecific skin eruption No pertinent family history History of cardioversion PAF (paroxysmal atrial fibrillation) CAD (coronary artery disease) Aortic stenosis Chronic renal insufficiency Gout BPH (benign prostatic hyperplasia) Elevated cholesterol HTN (hypertension) Surgical History Hx of aortic valve replacement Hx of CABG Hx of cataract extraction Hx of elbow surgery History of open heart surgery Hx of colonoscopy (~2021) Social History Household Members: Spouse Household Members Other:: - healthy Both parents involved: No Caregiver staying overnight: No Housing: House Are you a primary account executive healthcare to a significant other at home: No Do you presently have visiting nurse or other home services: No 75 years or older and lives alone: No Alcohol intake: current Alcohol intake frequency: a few times a month Patient Tobacco Use Status: Never used Tobacco e-Cigarette/Vaping Use: Never Used Second Hand Smoke Exposure: No Advance Directives Date on File: 04/18/19 service: No Current occupational status: retired Current occupation: left handed Current occupational exposures/hazards: No Cognitive needs: No Hearing needs: No Vision needs: Yes (reading glasses) Review of Systems Const Denies chills, Denies fever(s) and Reports weight loss Card Denies chest pain, Denies dyspnea and Denies dyspnea on exertion Resp Denies cough, Denies dyspnea and Denies dyspnea on exertion GI Denies hematochezia, Denies change in bowel habits and Denies vomiting Denies hematuria and Denies difficulty urinating Musc Denies back pain and Denies limited range of motion Neuro Denies focal weakness and Denies convulsions Psych Denies depression and Denies mood swings Physical Exam Const General: comfortable and no acute distress Orientation/consciousness: patient oriented x3 Neck Neck: Yes no lymphadenopathy Resp Auscultation: clear to auscultation bilaterally Cardio Rhythm: regular rhythm GI Palpation (GI): Soft to palpation, nontender and no guarding Neuro General: patient oriented x3 Assessment & Plan Assessment & Plan (1) Abnormal CT scan, gastrointestinal tract: Code(s): R93.3 - Abnormal findings on diagnostic imaging of other parts of digestive tract Category: Medical Plan: His CAT scan suggest what seemed to be diverticulum, about 5 cm in the sigmoid. A CAT scan of the rectal contrast has been recommended to further define this. This will be ordered for him. He currently denies any abdominal pain, or problems with bowel habits. He denies seeing blood per rectum. He does describe some weight loss of about 8 lb the past 2 months. I am uncertain to as to what etiology is although he says that this started when he had a rash all over his body. He still has this macular rash diffusely. I will see him again in the office after his CAT scan. He looks well overall. His was with him during the visit. They both understand the plan well and are comfortable with this. Coding Level of Care Code New Pt Level 3 (33626) Diagnoses Abnormal CT scan, gastrointestinal tract R93.3
[2025-07-19 14:19] VITALS: BP 120/57; PULSE 91; BMI 25.7
--- OUTSIDE RECORDS SUMMARY | 2025-07-19 17:39 | XMS_ITS | Clinical Summary ---
Author Organization [email or web address] Address [address] [place] [address] Phone Care Team Providers Care Rink Rat Name Role Phone Brianna Pandya Primary Care [...] disease invo lving coronary bypass graft of [place] heart without angina pectoris 10/08/2021 Overview (07/25/2024): [...] his dietary fat intake. Paroxysmal atrial fibrillation ([facility]/HCC V24, [facility] /HCC V28) 10/08/2021 Overview (07/25/2024): Last Assessment & Plan: Denies perception of recurrence of arrhythmia. Continues to be anticoagulated on Eliquis for stroke reduction. His [id number] score is 3 for age greater than [...] Type Department Care Team Description 05/02/2025 Telephone [facility] [address] [place] [address] Gigi Ferrara MD from Last 3 Months Social History Tobacco [...] 08/15/2022 Depression Screening 09/06/2024 COVID-19 Vaccine ( season) 2025 06/24/2021, 11/01/2020, 10/09/2020 Influenza Vaccine (#1) 2025 4, 06/06/2023, 05/31/2023, Additional history exists DTaP,Tdap,and Td Vaccines (2 - Tdap) 06/05/2025 06/05/2015 Cholesterol Screening (Lipid Panel) 05/22/2027 05/22/2022 Pneumococcal Vaccine: 50+ Years Completed 07/01/2017, 07/18/2015 Zoster Vaccines Completed 12/04/2020, 12/09/2019, 05/21/2015 HIB Vaccines Aged Out No longer [...] Recently Relevant to Health Maintenance Insurance MEDICARE [facility] Care Teams Rink Rat Relationship Specialty Start Date End Date Brianna Pandya FNP [address] [place] [address] [place] [address] PCP - General Nurse Practitioner 03/01/25
--- OUTSIDE RECORDS SUMMARY | 2025-07-19 17:39 | XMS_ITS | Patient Health Record ---
Author Organization [facility] Address [address] [place] [address] Care Team Providers Care Drapery Inspector Name Role Phone Tono Collado MD Primary Care Provider Unavailab Christiano Duffy Unavailable [phone] Reason For Referral No Information Medications Medication [...] Status W/U Status Risk Notes Problem Bursitis (89850537) Bursitis (727.3) Active confirmed Problem Myositis (08635224) Myositis (729.1) Active confirmed Problem Pain in limb (54279312) Pain in Limb (729.5) Active confirmed Problem Plantar fasciitis (086275860) Plantar Fasciitis (728.71) Active confirmed Problem Calcaneal spur (11783347) Calcaneal spur (726.73) Active confirmed Plan Of Treatment No Information Insurance Providers Payer Name Payer Address Payer Phone Subscriber Number Group Number Insured Name Patient Relationship to Insured Coverage Start Date Coverage End Date Medicare [facility] [employer] [address] [place] [id number] [phone] [id number] August Gamino Self - patient is the insured [employer] [address] [place] [address] [phone] [id number] Auguts Gamino Self - patient is the insured Medical (General) History Medical History History ICD Code Gout high blood pressure measles chicken pox Surgical History Surgery Date(Month/Year) Bone Spurs cataract removal lasik
== END 2025-07-19 14:50 | disposition home or self-care (01) ==
LOC: HO.HGS 14:14
PROVIDERS: PCP Nurse Practitioner Family; Visit Provider Surgery
DX: R93.3 Abnormal findings on diagnostic imaging of other parts of digestive tract (principal)
CPT/HCPCS: 99203

== ENCOUNTER → 2025-07-19 14:13 | Outpatient (BNVA) | payer MEDICARE, SELFPAY | PROVIDERS: PCP Nurse Practitioner Family; Visit Provider Surgery | DX: R93.3 Abnormal findings on diagnostic imaging of other parts of digestive tract (principal); Z95.2 Presence of prosthetic heart valve; Z79.01 Long term (current) use of anticoagulants | CPT/HCPCS: 99202 ==

== ENCOUNTER 2025-07-20 11:28 | Outpatient (AMB) | payer MEDICARE, SELFPAY ==
--- NOTE | 2025-07-20 11:40 | A.OFFPC_ITS ---
Vital Signs 07/20/25 11:46 Height 5 ft 11 in Weight 184 lb 4 oz BMI 25.7 BP 100/64 Blood Pressure Location Lt brachial Position Sitting Respiration 12 Pulse 78 Pulse Source Pulse Oximeter Temp 97.3 F Temp Source Oral Pulse Oximetry (%) 99 Oxygen Delivery Method Room Air Intake Visit Reasons: 2 weeks close fu (make sure CT scan is done!) Intake Note: Follow up to review CT scan results. Patient is having issues falling asleep and wants to know if its ok if he takes benadryl for sleep. Patient c/o no appetite, and light headed. Employee Relations Director Required: No Allergies No Known Allergies Allergy (Verified 07/20/25 11:46) Medication List - Last Reconciled 07/20/25 by UMESH Corrigan- allopurinol 300 mg PO DAILY amlodipine 5 mg PO DAILY apixaban (Eliquis) 5 mg PO BID betamethasone dipropionate 0.05% 1 appl topical BID 14 days fenofibrate nanocrystallized 145 mg PO DAILY finasteride 5 mg PO DAILY furosemide 20 mg PO DAILY gabapentin 300 mg PO BEDTIME losartan 100 mg PO DAILY metoprolol succinate ER 100 mg PO DAILY simvastatin 40 mg PO BEDTIME tamsulosin 0.4 mg PO DAILY Tobacco use date assessed: 07/20/25 Fall risk assessment: 2 + Falls in past year Last assessed Fall Risk: 07/20/25 Dental Screening Dental Screen Date: 07/20/25 Did you have a dental visit in the last 12 months?: Yes Did you have a dental problem in the last 6 months where you did not have access to dental care?: No Was dental information given to patient?: Patient has dentist HPI HPI Comments History of Present Illness Details 'Mahesh' 85 y/o M with CAD, HTN, severe aortic va lve stenosis s/p bioprostethic AVR, PAF on eliquis, HLD, CHF (echo 09/202324 Grade 2 diastolic dysfunction EF 55-60%), multiple falls, BPH with urinary retention, gout, DM2, anemia s/p CABG TYLER to the LAD, SVG, hemorrhoidectomy, bilat cataract surgery Fhx: Mom 64, Dad 62, 1 sister, 3 children (2 girls 1 boy) Social: ( Etta), 2 dtrs Michelle and Alesha Testin02/13/25 Carotid US Bilat: minimal athe rosclerotic plaque , < 50% stenosis Echo ordered and pending Stress test 08/2024 [facility] Health Maintenance Colon 2021 Dr Dunlap repeat 3-5 years Flu 06/29/25 Specialists: [facility]ele[facility] - visit note from 02/13/25 reviewed. Derm ? malignancy on back Taylor Quinonez @ [facility], [address] [facility] annually [facility] [place] 07/2024, visit q 6 months History of Present Illness The patient is an 85-year-old male presenting for follow-up on unintentional weight loss, a large colonic diverticulum, and a persistent rash. Unintentional Weight Loss and Decreased Appetite: - The patient has experienced an uninten tional weight loss of approximately 10 pounds over the last few months, from 194 to 184 pounds. - He reports a significant decrease in a ppetite and can skip meals without feeling hungry. - He no longer has the desire for foods he previously enjoyed, such as steak. 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 - He believes the previous misery from h is chronic rash may have also contributed to his loss of appetite. Diverticulum of the Colon: - A CT scan performed for the workup of his weight loss revealed a large diverticulum. - The initial scan showed a normal pancr eas and upper stomach. - He was followed by a GI specialist and is now under the care of a general surgeon, with a repeat scan scheduled to further evaluate his stomach. Dermatitis: - The patient has been suffering from a persistent and previously torturous rash, which caused him to be miserable and scratch nonstop. - Hot spots for the rash included the in ner elbows and his scalp. - Treatment has involved an escalating s eries of topical creams from a walk-in clinic and dermatologists. - He previously tried gabapentin for the itching, but it was ineffective and he is no longer taking it. - The current creams prescribed by his n head stock transfer clerk have been effective, and the rash is now improving, drying out, and crystallizing. Past Medical History - Aortic stenosis, status post valve pro cedure. - Gout, with no reported flares for 20-3 0 years. - Degenerative disc disease with pain ra diating down the leg, causing difficulty with ambulation and climbing stairs. - Post-traumatic stress disorder (self-r eported diagnosis). - History of surgery for tennis elbow. - Combat . Review of Systems - Constitutional: Reports unintentional weight loss of 10 lbs and decreased appetite. - Integumentary: Reports an improving ra sh on his arms and legs, which is now scabbed and crystallized. - Musculoskeletal: Reports pain in his b ack that radiates down his leg, which limits his ability to walk long distances and climb stairs. 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 Physical Exam Awake alert NAD Scleras nonicteric bilat RRR, 2/6 murmur LS CTAB mildly diminished bilat BLE no edema, + PP Posterior upper back, midline, is raised suspicious skin lesion s/p BX healing well; the previous rash is much improved!! Mood and affect appropriate Results - Imaging: A prior CT scan revealed a la rge diverticulum. - Imaging: The same CT scan showed a nor mal pancreas and upper stomach. - Labs: Previous blood work was noted to be okay. Medical Decision Making The patient is an 85-year-old male presenting for follow-up of unintentional weight loss and a chronic rash. His poor appetite and weight loss are likely multifactorial. An organic etiology is being investigated, as a prior CT scan showed a large diverticulum, and he is appropriately being followed by GI and general surgery with a repeat CT scan scheduled. 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 The physical stress from his prolonged, severe dermatitis, which is now thankfully improving, also likely played a role. The possibility of prescribing an appetite stimulant was discussed, with one option being dismissed due to side effects, while another, Remeron (mirtazapine), was considered as a safer alternative that could also address underlying anxiety, but no decision was made to start it at this time. A medication review was conducted at his request to address polypharmacy. It is difficult to reduce his cardiac medications (amlodipine, furosemide, losartan, metoprolol, simvastatin, Eliquis, fenofibrate) given his significant cardiac history. However, we can attempt to discontinue allopurinol, as he has not had gout symptoms in decades. To mitigate the risk of a flare-up from high-purine holiday foods, he is advised to stop the medication after . It was also confirmed that he is no longer taking gabapentin, which was ineffective for his pruritus. Plan 1. Unintentional Weight Loss / Decreased Appetite - The etiology is considered multifactor ial, potentially related to the large diverticulum, physical stress from chronic dermatitis, and psychosocial stressors from senior living and the VA disability process. - The patient will undergo a repeat CT s can on July 24 as scheduled by the general surgeon. - He will follow up with his surgeon, Dr Anastasiia Miles, for the results and further management. - An appetite stimulant was discussed, b ut no new medication will be prescribed at this time. 2. Dermatitis - The rash is noted to be improving sign ificantly with the creams prescribed by his current head stock transfer clerk. - Continue current topical treatment as prescribed. - Confirmed patient is no longer taking gabapentin for this condition as it was ineffective. 3. Polypharmacy / Medication Review - Discontinue allopurinol after to reduce medication burden, given the long history of being asymptomatic for gout. - Patient advised that high-purine foods such as shellfish can trigger gout. - Continue all cardiac medications (amlo dipine, furosemide, losartan, metoprolol, simvastatin, Eliquis, fenofibrate) due to extensive cardiac history. - Provide the patient with a printed sum makenna detailing the medication changes. Patient Instructions - You have a CT scan scheduled for Novem . - Make sure to follow up with your surge on, Dr. Miles, after your scan to discuss the results. - You can stop taking the allopurinol pi ll for gout, but please wait until after the holiday to stop it. - Please remember that foods like shrimp and other shellfish can sometimes cause a gout flare-up. - Continue using the skin creams for you r rash as your head stock transfer clerk prescribed, as they seem to be working well. - We will give you a printout at the [facility] desk with these instructions so you have a clear reminder of the plan. Consent Patient was informed and verbally consented to the use of an ambient scribe for clinic note documentation during this visit. Total time spent caring for the patient today was 30 minutes. This includes time spent before the visit reviewing the chart, time spent during the visit, and time spent after the visit on documentation, reviewing laboratory results, diagnostic imaging, medications, performing a medically necessary evaluation, counseling on diagnoses, care coordination, ordering appropriate tests, ordering appropriate medications, review of tests performed by other providers, reporting test results with the patient, communication with other healthcare providers. [facility] Medical History (Updated 07/19/25 @ 14:53 by Uvaldo Miles MD) Abnormal CT scan, gastrointestinal tract Aortic stenosis BPH (benign prostatic hyperplasia) CAD (coronary artery disease) Chronic renal insufficiency Elevated cholesterol Gout History of cardioversion HTN (hypertension) No pertinent family history PAF (paroxysmal atrial fibrillation) Rash and nonspecific skin eruption Surgical History History of open heart surgery Hx of aortic valve replacement Hx of CABG Hx of cataract extraction Hx of colonoscopy (~2021) Hx of elbow surgery Social History Household Members: Spouse Household Members Other:: - healthy Both parents involved: No Caregiver staying overnight: No Housing: House Are you a primary home visit field care manager to a significant other at home: No Do you presently have visiting nurse or other home services: No 75 years or older and lives alone: No Alcohol intake: current Alcohol intake frequency: a few times a month Patient Tobacco Use Status: Never used Tobacco e-Cigarette/Vaping Use: Never Used Second Hand Smoke Exposure: No Advance Directives Date on File: 04/18/19 service: No Current occupational status: retired Current occupation: left handed Current occupational exposures/hazards: No Cognitive needs: No Hearing needs: No Vision needs: Yes (reading glasses) Questionnaire PHQ-9 Over the last 2 weeks, how often have you been bothered by any of the following problems? 1. Little interest or pleasure in doing things: not at all 2. Feeling down, depressed, or hopeless: not at all 3. Trouble falling or staying asleep, or sleeping too much: not at all 4. Feeling tired or having little energy: not at all 5. Poor appetite or overeating: not at all 6. Feeling bad about yourself - or that you are a failure or have let yourself or your family down: not at all 7. Trouble concentrating on things, such as reading the newspaper or watching television: not at all 8. Moving or speaking so slowly that other people could have noticed. Or the opposite - being so fidgety or restless that you have been moving around a lot more than usual: not at all 9. Thoughts that you would be better off or of hurting yourself in some way: not at all Total score: 0 64732 - PHQ-9 Billing: Yes Source: Developed by Drs. Roger Oates, Nayana Quinones, Charly Lerner and colleagues, with an educational david from [employer]. Thrive Questionnaire Date Thrive assessed: 07/20/25 I am a: Patient What is your living situation today?: I have a steady place to live Within the past 12 months, did the food you bought not last and you didn't have the money to get more?: Never true Within the past 12 months, did you worry whether your food would run out before you got money to buy more?: Never true Do you have trouble paying for medicines?: No Do you have trouble getting transportation to medical appointments?: No Do you have trouble paying your heating and electricity bill?: No Do you have trouble taking care of your child, family member or friend?: No Do you have trouble with day-to-day activities such as bathing, preparing meals, shopping, managing finances, etc.?: No Are you currently unemployed and looking for a job?: No Are you interested in more education?: No Please select the resources that you would like help with: None Currently or been in a relationship where the following occur: No concerns reported THRIVE Score: 0 JUANITA-7 AMB Questionnaire JUANITA-7 Date JUANITA - 7 assessed: 07/20/25 Feeling nervous, anxious, or on edge: 0 = Not at all Not being able to stop or control worryin = Not at all Worrying too much about different things: 0 = Not at all Trouble relaxin = Not at all Being so restless that it is hard to sit still: 0 = Not at all Becoming easily annoyed or irritable: 0 = Not at all Feeling afraid as if something awful might happen: 0 = Not at all Total JUANITA-7 score (0-4 normal; 5-9 mild; 10-14 moderate; 15-21 severe): 0 Source: Developed by Drs. Roger Oates, Nayana Quinones, Charly Lerner and colleagues, with an educational david from [employer]. JUANITA-7 Assessment Billing JUANITA-7 Assessment Tool: JUANITA-7 Assessment 96420 Physical exam (Primary Care) Vital Signs: Last Vital Signs Temp 97.3 F 07/20/25 11:46 Pulse 78 07/20/25 11:46 Resp 12 07/20/25 11:46 BP 100/64 07/20/25 11:46 Pulse Ox 99 07/20/25 11:46 Oxygen Delivery Method Room Air 07/20/25 11:46 BMI result Body Mass Index 25.7 Tobacco/Smoking Status: Tobacco use Status Tobacco use date assessed 07/20/25 07/20/25 11:44 Patient Tobacco Use Status Never used Tobacco 07/20/25 11:41 Tobacco use type 03/06/25 11:28 e-Cigarette/Vaping Use Never Used 07/20/25 11:41 PHQ-9: PHQ-9 Score PHQ-9: Total score 0 07/20/25 11:41 Thrive Assessment: Date of Thrive Assessment Date Thrive assessed 07/20/25 07/20/25 11:41 Currently or been in a relationship where the following occur: No concerns reported Coding Level of Care Code Est Pt Level 4 (45986) Complex EM visit Add On G2211 Diagnoses Weight loss R63.4 Diverticulosis of colon K57.[address] scan, sigmoid colon R93.[address] scan, gastrointestinal tract R93.3 Rash and nonspecific skin eruption R21 Additional Codes JUANITA-7 Assessment Billing - JUANITA-7 Assessment Tool: JUANITA-7 Assessment 13062 ([id number]) PHQ-9 - 97311 - PHQ-9 Billing: Yes ([id number]) Assessment & Plan Assessment & Plan (1) Weight loss: Code(s): R63.4 - Abnormal weight loss Category: Medical (2) Diverticulosis of colon: Comment: Diverticulosis/diverticulitis discuss Maintain high-fiber Code(s): K57.30 - Diverticulosis of large intestine without perforation or abscess without bleeding Category: Medical (3) Abnormal CT scan, sigmoid colon: Code(s): R93.3 - Abnormal findings on diagnostic imaging of other parts of digestive tract Category: Medical (4) Abnormal CT scan, gastrointestinal tract: Code(s): R93.3 - Abnormal findings on diagnostic imaging of other parts of digestive tract Category: Medical (5) Rash and nonspecific skin eruption: Code(s): R21 - Rash and other nonspecific skin eruption Category: Medical Plan . Medications: Discontinued allopurinol Discontinued Reason: Doctor's Order 300 mg PO DAILY 90 tabs 2RF Patient Instructions: - You have a CT scan scheduled for July 24. - Make sure to follow up with your surgeon, Dr. Miles, after your scan to discuss the results. - You can stop taking the allopurinol pill for gout, but please wait until after the holiday to stop it. - Please remember that foods like shrimp and other shellfish can sometimes cause a gout flare-up. - Continue using the skin creams for your rash as your head stock transfer clerk prescribed, as they seem to be working well. - We will give you a printout at the it help desk manager with these instructions so you have a clear reminder of the plan.
[2025-07-20 11:46] VITALS: BP 100/64; PULSE 78; RESP 12; TEMP 36.3; O2SAT 99; BMI 25.7
== END 2025-07-20 12:29 | disposition home or self-care (01) ==
LOC: HO.HMCFM 11:29
PROVIDERS: PCP Nurse Practitioner Family; Visit Provider Nurse Practitioner Family
DX: R63.4 Abnormal weight loss (principal); K57.30 Diverticulosis of large intestine without perforation or abscess without bleeding; R93.3 Abnormal findings on diagnostic imaging of other parts of digestive tract; R21 Rash and other nonspecific skin eruption

== ENCOUNTER → 2025-07-20 11:28 | Outpatient (BNVA) | payer MEDICARE, SELFPAY | PROVIDERS: PCP Nurse Practitioner Family; Visit Provider Nurse Practitioner Family | DX: K57.30 Diverticulosis of large intestine without perforation or abscess without bleeding (principal); L30.9 Dermatitis, unspecified; R63.4 Abnormal weight loss; R93.3 Abnormal findings on diagnostic imaging of other parts of digestive tract; R21 Rash and other nonspecific skin eruption | CPT/HCPCS: 96127; 99212 ==

== ENCOUNTER 2025-07-25 13:34 | Outpatient (REF) | payer MEDICARE, SELFPAY ==
--- NOTE | ~2025-07-25 | XR_ITS ---
EXAMINATION: XR SHOULDER, RIGHT CLINICAL INFORMATION: M25.311 - Other instability, right shoulder COMPARISON: None available. TECHNIQUE: AP external rotation, Grashey, scapular Y, and axillary views of the right shoulder. FINDINGS: Bone mineralization is decreased. Mild superior positioning of the clavicle with respect to the acromion. Mild acromioclavicular arthritis. Mild glenohumeral arthritis. No acute fracture or dislocation. No abnormal soft tissue calcification. XR/XR shoulder RT min 2V IMPRESSION: Mild glenohumeral arthritis. Mild acromioclavicular arthritis. Mild malalignment at the acromioclavicular joint could be related to degeneration versus sprain injury. Electronically signed by: Jacques Pena MD 07/26/2025 11:29 AM EDI ROWLEY
--- OUTSIDE RECORDS SUMMARY | 2025-07-26 01:34 | XMS_ITS | Patient Health Record ---
Author Organization [facility] Address [address] [place] [address] Care Team Providers Care Physical Security Engineer Name Role Phone Tono Collado MD Primary Care Provider Unavailab Christiano Duffy Unavailable [phone] Reason For Referral No Information Medications Medication [...] Status W/U Status Risk Notes Problem Bursitis (84934235) Bursitis (727.3) Active confirmed Problem Myositis (52928643) Myositis (729.1) Active confirmed Problem Pain in limb (99207045) Pain in Limb (729.5) Active confirmed Problem Plantar fasciitis (425349591) Plantar Fasciitis (728.71) Active confirmed Problem Calcaneal spur (78524325) Calcaneal spur (726.73) Active confirmed Plan Of Treatment No Information Insurance Providers Payer Name Payer Address Payer Phone Subscriber Number Group Number Insured Name Patient Relationship to Insured Coverage Start Date Coverage End Date Medicare National [facility] [employer] [address] [place] [phone] [id number] August Gamino Self - patient is the insured [employer] [address] [place] [address] [id number] August Gamino Self - patient is the insured Medical (General) History Medical History History ICD Code Gout high blood pressure measles chicken pox Surgical History Surgery Date(Month/Year) Bone Spurs cataract removal lasik
== END 2025-07-25 13:35 | disposition home or self-care (01) ==
LOC: HO.HMGCX 13:34
PROVIDERS: PCP Nurse Practitioner Family; Visit Provider Nurse Practitioner Family
DX: M25.311 Other instability, right shoulder (principal)
CPT/HCPCS: 73030

== ENCOUNTER → 2025-07-25 13:39 | Outpatient (BNV) | payer MEDICARE, SELFPAY | PROVIDERS: PCP Nurse Practitioner Family; Visit Provider Radiology Diagnostic Ultrasound | DX: M19.011 Primary osteoarthritis, right shoulder (principal); M25.311 Other instability, right shoulder | CPT/HCPCS: 73030 ==

== ENCOUNTER 2025-07-27 11:12 | Outpatient (REF) | payer MEDICARE, SELFPAY ==
--- NOTE | ~2025-07-27 | CT_ITS ---
EXAMINATION: CT ABDOMEN PELVIS WITHOUT IV CONTRAST HISTORY: R93.3 - Abnormal findings on diagnostic imaging of other parts of digest... COMPARISON: Previous CT scans most recent June 2025 and older exam April 2019. TECHNIQUE: CT scan of the abdomen and pelvis was performed without IV contrast and following rectal contrast. Unfortunately full strength barium was used. Coronal and sagittal reformatted images were generated and reviewed. This CT exam was performed with one or more of the following dose reduction techniques: automated exposure control, adjustment of the mA and/or kV according to patient size, use of iterative reconstruction technique. DLP: mGy-cm FINDINGS: Significantly limited exam due to artifact from the skull strength barium. LOWER CHEST: The lung bases are clear. There are scattered small pleural calcifications similar to prior exam. No pleural effusion. Enlarged heart and partially visualized aortic valve replacement. LIVER: The liver is normal in size and contour. The liver has an unremarkable unenhanced appearance. GALLBLADDER / BILE DUCTS: The gallbladder is unremarkable. There is no intra or extrahepatic biliary ductal dilatation. SPLEEN: The spleen is normal in size and has an unremarkable unenhanced appearance. PANCREAS: The pancreas has an unremarkable unenhanced appearance. ADRENAL GLANDS: Unremarkable. KIDNEYS/RETROPERITONEUM: Evaluation of the kidneys is limited due to streak artifact from barium contrast. LYMPH NODES: No enlarged lymphadenopathy is identified in the abdomen or pelvis. VASCULATURE: Atherosclerotic disease. MESENTERY/PERITONEUM: No free fluid. There is no free intraperitoneal gas. STOMACH: Underdistended. There may be a small esophageal hernia. SMALL BOWEL: The small bowel is normal in caliber. COLON: Diverticulosis of the colon. 5.4 cm collection containing air and stool abutting the proximal sigmoid colon. This contains a small amount of rectal contrast suggesting communication with the bowel. The site of communication appears to be in the anterior proximal sigmoid colon for example coronal reconstructed image 48 and axial image 504 series 4. This is similar in size to recent CT scan June 2025. This is superior to the dome of the bladder. APPENDIX: Not seen. URINARY BLADDER/PELVIC ORGANS: Underdistended bladder. Difficult to exclude a diffuse lateral wall thickening. No air or oral contrast seen in the bladder to confirm a fistula. The prostate gland has central calcification but does not appear enlarged.. BONES / SOFT TISSUES: Degenerative changes of the spine and hips. CT/CT abdomen pelvis wo IV con IMPRESSION: Very limited exam secondary to administration of rectal contrast undiluted barium causing significant streak artifact. Diverticulosis of colon. Similar appearing 5.4 cm collection in the pelvis containing air and stool adjacent to the sigmoid colon and superior to the dome of the bladder. This contains a small amount of rectal contrast suggestive of communication with the bowel and likely represents a contained perforation. Underdistended bladder. Difficult to exclude diffuse bladder wall thickening. No air or oral contrast is seen in the bladder to suggest a colovesicular fistula. Electronically signed by: Martha Varner MD 07/27/2025 03:08 PM [facility]
--- OUTSIDE RECORDS SUMMARY | 2025-07-27 12:05 | XMS_ITS | Patient Health Record ---
Author Organization [facility] Address [address] [place] [address] Care Team Providers Care Slip Box Changer Name Role Phone Tono Collado MD Primary Care Provider Unavailab Christiano Duffy Unavailable [phone] Reason For Referral No Information Medications Medication [...] Status W/U Status Risk Notes Problem Bursitis (98262057) Bursitis (727.3) Active confirmed Problem Myositis (96163490) Myositis (729.1) Active confirmed Problem Pain in limb (66979818) Pain in Limb (729.5) Active confirmed Problem Plantar fasciitis (115203775) Plantar Fasciitis (728.71) Active confirmed Problem Calcaneal spur (98010139) Calcaneal spur (726.73) Active confirmed Plan Of Treatment No Information Insurance Providers Payer Name Payer Address Payer Phone Subscriber Number Group Number Insured Name Patient Relationship to Insured Coverage Start Date Coverage End Date Medicare National [facility] [employer] [address] [place] [phone] [id number] August Gamino Self - patient is the insured [employer] [address] [place] [address] [id number] August Gamino Self - patient is the insured Medical (General) History Medical History History ICD Code Gout high blood pressure measles chicken pox Surgical History Surgery Date(Month/Year) Bone Spurs cataract removal lasik
--- OUTSIDE RECORDS SUMMARY | 2025-07-27 12:05 | XMS_ITS | Clinical Summary ---
Author Organization [facility] [employer] Address [address] [place] [address] Phone Care Team Providers Care Logistical Engineer Name Role Phone Brianna Pandya Primary Care [...] disease invo lving coronary bypass graft of kashia heart without angina pectoris 10/08/2021 Overview (07/25/2024): [...] his dietary fat intake. Paroxysmal atrial fibrillation ([facility]/HCC V24, [facility] /HCC V28) 10/08/2021 Overview (07/25/2024): Last Assessment & Plan: Denies perception of recurrence of arrhythmia. Continues to be anticoagulated on Eliquis for stroke reduction. His [id number] score is 3 for age greater than [...] Type Department Care Team Description 05/02/2025 Telephone [facility] [address] [place] [address] Gigi Ferrara MD from Last [...] Recently Relevant to Health Maintenance Insurance MEDICARE [facility] Care Teams Logistical Engineer Relationship Specialty Start Date End Date Brianna Pandya FNP [address] [place] [address] [place] [address] PCP - General Nurse Practitioner 03/01/25
== END 2025-07-27 11:13 | disposition home or self-care (01) ==
LOC: HO.CT 11:12
PROVIDERS: PCP Nurse Practitioner Family; Visit Provider Internal Medicine Gastroenterology
DX: R93.3 Abnormal findings on diagnostic imaging of other parts of digestive tract (principal)
CPT/HCPCS: 74176

== ENCOUNTER → 2025-07-27 11:15 | Outpatient (BNV) | payer MEDICARE, SELFPAY | PROVIDERS: PCP Nurse Practitioner Family; Visit Provider Radiology Diagnostic Radiology | DX: K57.30 Diverticulosis of large intestine without perforation or abscess without bleeding (principal) | CPT/HCPCS: 74176 ==

== ENCOUNTER 2025-07-30 13:41 | Outpatient (AMB) | payer MEDICARE, SELFPAY ==
--- NOTE | 2025-07-30 13:54 | A.OFFPC_ITS ---
Vital Signs 07/30/25 14:01 Height 5 ft 11 in Weight 183 lb 4 oz BMI 25.6 BP 142/76 H Blood Pressure Location Lt brachial Position Sitting Respiration 13 Pulse 74 Pulse Source Pulse Oximeter Temp 97.3 F Temp Source Oral Pulse Oximetry (%) 99 Oxygen Delivery Method Room Air Intake Visit Reasons: follow up ct Intake Note: Follow up to review CT scan and review xray. Patient still c/o itchiness and patient is seein dermatology and also has no appetite. Speech Lang Path Required: No Allergies No Known Allergies Allergy (Verified 07/30/25 13:54) Tobacco use date assessed: 07/30/25 Fall risk assessment: No Falls in past year Last assessed Fall Risk: 07/30/25 Dental Screening Dental Screen Date: 07/30/25 Did you have a dental visit in the last 12 months?: Yes Did you have a dental problem in the last 6 months where you did not have access to dental care?: No Was dental information given to patient?: Patient has dentist HPI HPI Comments History of Present Illness Details 'Mahesh' 85 y/o M with CAD, HTN, severe aortic va lve stenosis s/p bioprostethic AVR, PAF on eliquis, HLD, CHF (echo [id number]/[id number] Grade 2 diastolic dysfunction EF 55-60%), multiple falls, BPH with urinary retention, gout, DM2, anemia s/p CABG TYLER to the LAD, SVG, hemorrhoidectomy, bilat cataract surgery Fhx: Mom 64, Dad 62, 1 sister, 3 children (2 girls 1 boy) Social: ( Etta), 2 dtrs Michelle and Alesha Testin02/13/25 Carotid US Bilat: minimal athe rosclerotic plaque , < 50% stenosis Echo ordered and pending Stress test 08/2024 WN Health Maintenance Colon 2021 Dr Dunlap repeat 3-5 years Flu 06/29/25 Specialists: [facility] - visit note from 02/13/25 reviewed. Derm ? malignancy on back [facility]one[facility] [place] [facility]24, visit q 6 months History of Present Illness The patient is an 85-year-old individual presenting for follow-up on CT scan results. Pelvic collection: - The patient underwent a recent CAT sca n with rectal contrast ordered by gastroenterology due to unintentional weight loss. - The patient reports a negative experie nce with the procedure, stating it was performed by a substitute medical laboratory technician who overfilled the system, causing unbelievable stomach discomfort. - Post-procedure, the patient was consti pated and passed hard, marble-like pallets, which were discolored, consistent with passing barium. - The CT scan was a limited exam but rev ealed a 5.4 cm collection in the pelvis containing air and stool, suggestive of a contained perforation communicating with the bowel. - The patient has a known history of div erticulosis for at least 10 years. Unintentional weight loss: - The current workup was initiated due t o unintentional weight loss and feeling full with poor appetite. - The patient continues to lose weight, having lost another pound and a half recently, and reports not eating and not feeling well. Dermatitis: - The patient has a persistent rash that is described as widespread over the body, including the legs, stomach, back, and scalp. - The rash is bothersome, causing lumps and keeping the patient awake at night. - A cream prescribed by a combine driver provided temporary relief, but it has since flared again and needs a refill. - A previous trial of prednisone was not effective. - The patient has an upcoming appointmen t with dermatology Wednesday. Right shoulder pain: - The patient reports weakness in the ri ght shoulder. - The patient also notes pain that is wo rse in the morning, improves during the day, and sometimes produces a clicking sound with arm movement. - An X-ray of the left shoulder showed m ild AC arthritis but no acute fracture; Xray of R shoulder: [facility] [place] [address] [address] XRay Report Signed Patient: August Gamino MR#: [id number] : 1940 Acct:[id number] Age/Sex: 85 / M ADM Date: 07/25/25 Loc: HO.HMGCX Attending Dr: Brianna Pandya [facility]RECTIONAL [facility]ORE [facility] Ordering Physician: Brianna Pandya Date of Service: 07/25/25 Procedure(s): XR shoulder RT min 2V Accession Number(s): [id number] cc: Brianna Pandya [facility]~ Reason for Exam: M25.311 - Other instability, right shoulder EXAMINATION: XR SHOULDER, RIGHT CLINICAL INFORMATION: M25.311 - Other instability, right shoulder COMPARISON: None available. TECHNIQUE: AP external rotation, Grashey, scapular Y, and axillary views of the right shoulder. FINDINGS: Bone mineralization is decreased. Mild superior positioning of the clavicle with respect to the acromion. Mild acromioclavicular arthritis. Mild glenohumeral arthritis. No acute fracture or dislocation. No abnormal soft tissue calcification. XR/XR shoulder RT min 2V IMPRESSION: Mild glenohumeral arthritis. Mild acromioclavicular arthritis. Mild malalignment at the acromioclavicular joint could be related to degeneration versus sprain injury. Electronically signed by: Jacques Pena MD 07/26/2025 11:29 AM EST Insomnia: - The patient reports difficulty falling asleep. - The patient has been using Tylenol PM to aid with sleep. - Sleep is also disturbed by the pruriti c rash. Review of Systems - Constitutional: Reports unintentional weight loss, poor appetite, early satiety, and feeling unwell. - Integumentary: Reports a widespread, p ruritic rash with lumps on the back, legs, stomach, and scalp. - Gastrointestinal: Reports post-procedu ral constipation which has since resolved; reports passing hard, discolored stools after a contrast study. - Musculoskeletal: Reports pain, weaknes s, and clicking in the right shoulder. - Neurological: Reports difficulty falli ng asleep. Physical Exam General: Well developed, well nourished, in no acute distress. Accompanied by Head: Normocephalic, atraumatic. Eyes: Pupils are equal, round and reactive to light and accommodation. Conjunctivae are clear. Scleras nonicteric Lungs: Speaking in full sentences Psych: Mood and affect appropriate, but patient reports difficulty sleeping and feeling full without eating much. Results - CT Pelvis: A limited exam due to contr ast administration technique showed a 5.4 cm collection in the pelvis containing air and feces, adjacent to the sigmoid colon and superior to the bladder dome. - CT Pelvis Impression: Findings are sug gestive of a contained perforation with communication with the bowel. - X-ray Left Shoulder: Mild superior pos itioning of the clavicle with respect to the acromion and mild AC arthritis noted; no fracture identified. - Labs: Recent urinalysis was normal wit h no evidence of contamination. - Labs: Other recent blood work was unre markable. Medical Decision Making The patient is an 85-year-old individual here for follow-up on a CT scan which was ordered for unintentional weight loss. The CT scan revealed a 5.4 cm pelvic collection suggestive of a contained perforation, a concerning finding that requires further evaluation, although the patient does not appear acutely ill. Given the limited nature of the imaging and the seriousness of the potential diagnosis, coordination with the patient's band head saw operator, Dr. Cui, and surgeon, Dr. Miles, is necessary to determine the next steps, especially since the GI follow-up is not until August. The patient's persistent, widespread rash has been refractory to prednisone but responded temporarily to a topical agent from dermatology, so the patient will continue with their scheduled dermatology follow-up. For the new complaint of right shoulder pain and weakness, I have recommended an evaluation at an urgent orthopedic walk-in clinic. For insomnia, I have advised against the use of Benadryl (found in Tylenol PM) and suggested a trial of low- dose OTC melatonin to help reset the sleep-wake cycle. I also reinforced the importance of hydration and suggested Metamucil to manage any residual constipation from the barium study. Plan 1. Pelvic Collection - The CT scan results showing a 5.4 cm p elvic collection suggestive of a contained perforation were discussed. - Dr. Cui (GI) is out of the office, i connected w/ Dr Hartman who is covering; additional imaging reviewed; advised ED if Sx, which he is not. Hold on contacting Dr. Miles (Surgery) @ this time. - The patient will keep the scheduled fo llow-up appointment with Dr. Cui on August 14. - Recommended increasing fluid intake an d using Metamucil to help with bowel regularity. 2. Dermatitis - The patient's widespread rash is flari ng and causing significant discomfort. - The patient should proceed with the ar heduled dermatology appointment on Wednesday for further management. - Advised to check the prescription for the previously effective cream to determine when a refill can be obtained through insurance. 3. Right Shoulder Pain - For new-onset right shoulder pain and weakness, a referral was made to the [facility] orthopedic walk-in clinic for evaluation. 4. Insomnia - To address difficulty falling asleep, recommended a trial of [id number] melatonin, up to 5 mg, taken 30 minutes before bedtime. - Advised the patient to use melatonin i nstead of Tylenol PM. 5. Unintentional Weight Loss - This remains an ongoing concern and th e impetus for the current workup. - Further management is pending clarific ation of the pelvic CT findings. Patient Instructions - Keep your scheduled appointments, incl uding with the combine driver on Wednesday for your rash and with Dr. Cui (gastroenterology) on August 14. - For your right shoulder pain, you can go to the [facility] walk-in clinic for an evaluation. The address is [address] [place] [address], and they open at 4:00 PM. - For trouble sleeping, you can try over -the-counter melatonin. Take no more than 5 mg about 30 minutes before you want to go to sleep. Try this instead of Tylenol PM. - Drink plenty of water and you may take Metamucil to help keep your bowels m oving regularly. - I will contact your other doctors rega rding the CT scan results and will let you know if there are any new recommendations. Consent No consent was obtained as no procedures were performed during the visit. Patient was informed and verbally consented to the use of an ambient scribe for clinic note documentation during this visit. Total time spent caring for the patient today was 45 minutes. This includes time spent before the visit reviewing the chart, time spent during the visit, and time spent after the visit on documentation, reviewing laboratory results, diagnostic imaging, medications, performing a medically necessary evaluation, counseling on diagnoses, care coordination, ordering appropriate tests, ordering appropriate medications, review of tests performed by other providers, reporting test results with the patient, communication with other healthcare providers. [facility] Medical History (Updated 07/31/25 @ 08:45 by Brianna Pandya, DIRECTIONAL BORE OPERATOR-) Abnormal CT scan, gastrointestinal tract Aortic stenosis BPH (benign prostatic hyperplasia) CAD (coronary artery disease) Chronic renal insufficiency Elevated cholesterol Gout History of cardioversion HTN (hypertension) No pertinent family history PAF (paroxysmal atrial fibrillation) Rash and nonspecific skin eruption Surgical History History of open heart surgery Hx of aortic valve replacement Hx of CABG Hx of cataract extraction Hx of colonoscopy (~2021) Hx of elbow surgery Social History Household Members: Spouse Household Members Other:: - healthy Both parents involved: No Caregiver staying overnight: No Housing: House Are you a primary manager care to a significant other at home: No Do you presently have visiting nurse or other home services: No 75 years or older and lives alone: No Alcohol intake: current Alcohol intake frequency: a few times a month Patient Tobacco Use Status: Never used Tobacco e-Cigarette/Vaping Use: Never Used Second Hand Smoke Exposure: No Advance Directives Date on File: 04/18/19 service: No Current occupational status: retired Current occupation: left handed Current occupational exposures/hazards: No Cognitive needs: No Hearing needs: No Vision needs: Yes (reading glasses) Questionnaire Thrive Questionnaire Date Thrive assessed: 03/21/25 I am a: Patient What is your living situation today?: I have a steady place to live Within the past 12 months, did the food you bought not last and you didn't have the money to get more?: Never true Within the past 12 months, did you worry whether your food would run out before you got money to buy more?: Never true Do you have trouble paying for medicines?: No Do you have trouble getting transportation to medical appointments?: No Do you have trouble paying your heating and electricity bill?: No Do you have trouble taking care of your child, family member or friend?: No Do you have trouble with day-to-day activities such as bathing, preparing meals, shopping, managing finances, etc.?: No Are you currently unemployed and looking for a job?: No Are you interested in more education?: No Please select the resources that you would like help with: None Currently or been in a relationship where the following occur: No concerns reported THRIVE Score: 0 JUANITA-7 AMB Questionnaire JUANITA-7 Date JUANITA - 7 assessed: 07/20/25 Source: Developed by Drs. Roger Oates, Nayana Quinones, Charly Lerner and colleagues, with an educational david from [employer]. Physical exam (Primary Care) Vital Signs: Last Vital Signs Temp 97.3 F 07/30/25 14:01 Pulse 74 07/30/25 14:01 Resp 13 07/30/25 14:01 BP 142/76 H 07/30/25 14:01 Pulse Ox 99 07/30/25 14:01 Oxygen Delivery Method Room Air 07/30/25 14:01 BMI result Body Mass Index 25.6 Tobacco/Smoking Status: Tobacco use Status Tobacco use date assessed 07/30/25 07/30/25 13:56 Patient Tobacco Use Status Never used Tobacco 07/30/25 13:56 Tobacco use type 07/24/25 10:17 e-Cigarette/Vaping Use Never Used 07/30/25 13:56 Thrive Assessment: Date of Thrive Assessment Date Thrive assessed 03/21/25 07/30/25 13:56 Currently or been in a relationship where the following occur: No concerns reported Results Reviewed Results Reviewed: [address] [address] [address] Scan Report Signed Patient: August Gamino MR#: [id number] : 1940 Acct:[id number] Age/Sex: 85 / M ADM Date: 07/27/25 Loc: HO.CT Attending Dr: Vivian Cui MD Ordering Physician: Vivian Cui MD Date of Service: 07/27/25 Procedure(s): CT abdomen pelvis wo IV con Accession Number(s): [id number] cc: Vivian Cui MD; Brianna Pandya DIRECTIONAL BORE OPERATOR-BC~ Report Number: [id number]: Total DLP = 1059.00 mGy-cm Reason for Exam: R93.3 - Abnormal findings on diagnostic imaging of other parts of digest... EXAMINATION: CT ABDOMEN PELVIS WITHOUT IV CONTRAST HISTORY: R93.3 - Abnormal findings on diagnostic imaging of other parts of digest... COMPARISON: Previous CT scans most recent June 2025 and older exam April 2019. TECHNIQUE: CT scan of the abdomen and pelvis was performed without IV contrast and following rectal contrast. Unfortunately full strength barium was used. Coronal and sagittal reformatted images were generated and reviewed. This CT exam was performed with one or more of the following dose reduction techniques: automated exposure control, adjustment of the mA and/or kV according to patient size, use of iterative reconstruction technique. DLP: mGy-cm FINDINGS: Significantly limited exam due to artifact from the skull strength barium. LOWER CHEST: The lung bases are clear. There are scattered small pleural calcifications similar to prior exam. No pleural effusion. Enlarged heart and partially visualized aortic valve replacement. LIVER: The liver is normal in size and contour. The liver has an unremarkable unenhanced appearance. GALLBLADDER / BILE DUCTS: The gallbladder is unremarkable. There is no intra or extrahepatic biliary ductal dilatation. SPLEEN: The spleen is normal in size and has an unremarkable unenhanced appearance. PANCREAS: The pancreas has an unremarkable unenhanced appearance. ADRENAL GLANDS: Unremarkable. KIDNEYS/RETROPERITONEUM: Evaluation of the kidneys is limited due to streak artifact from barium contrast. LYMPH NODES: No enlarged lymphadenopathy is identified in the abdomen or pelvis. VASCULATURE: Atherosclerotic disease. MESENTERY/PERITONEUM: No free fluid. There is no free intraperitoneal gas. STOMACH: Underdistended. There may be a small esophageal hernia. SMALL BOWEL: The small bowel is normal in caliber. COLON: Diverticulosis of the colon. 5.4 cm collection containing air and stool abutting the proximal sigmoid colon. This contains a small amount of rectal contrast suggesting communication with the bowel. The site of communication appears to be in the anterior proximal sigmoid colon for example coronal reconstructed image 48 and axial image 504 series 4. This is similar in size to recent CT scan June 2025. This is superior to the dome of the bladder. APPENDIX: Not seen. URINARY BLADDER/PELVIC ORGANS: Underdistended bladder. Difficult to exclude a diffuse lateral wall thickening. No air or oral contrast seen in the bladder to confirm a fistula. The prostate gland has central calcification but does not appear enlarged.. BONES / SOFT TISSUES: Degenerative changes of the spine and hips. CT/CT abdomen pelvis wo IV con IMPRESSION: Very limited exam secondary to administration of rectal contrast undiluted barium causing significant streak artifact. Diverticulosis of colon. Similar appearing 5.4 cm collection in the pelvis containing air and stool adjacent to the sigmoid colon and superior to the dome of the bladder. This contains a small amount of rectal contrast suggestive of communication with the bowel and likely represents a contained perforation. Underdistended bladder. Difficult to exclude diffuse bladder wall thickening. No air or oral contrast is seen in the bladder to suggest a colovesicular fistula. Electronically signed by: Martha Varner MD 07/27/2025 03:08 PM EST Coding Level of Care Code Est Pt Level 5 (18760) Complex visit Add On G2211 Diagnoses Encounter to discuss test results Z71.[address] scan, sigmoid colon R93.3 Weight loss R63.4 Instability of right shoulder joint M25.311 Right shoulder pain M25.511 Rash and nonspecific skin eruption R21 Early satiety R68.81 Insomnia G47.00 Assessment & Plan Assessment & Plan (1) Encounter to discuss test results: Code(s): Z71.2 - Person consulting for explanation of examination or test findings (2) Abnormal CT scan, sigmoid colon: Code(s): R93.3 - Abnormal findings on diagnostic imaging of other parts of digestive tract Category: Medical (3) Weight loss: Code(s): R63.4 - Abnormal weight loss Category: Medical (4) Instability of right shoulder joint: Code(s): M25.311 - Other instability, right shoulder Category: Medical (5) Right shoulder pain: Code(s): M25.511 - Pain in right shoulder Category: Medical (6) Rash and nonspecific skin eruption: Code(s): R21 - Rash and other nonspecific skin eruption Category: Medical (7) Early satiety: Code(s): R68.81 - Early satiety Category: Medical (8) Insomnia: Code(s): G47.00 - Insomnia, unspecified Category: Medical Plan . Patient Instructions: try over the counter melatonin up to 5mg [facility] See Derm on Wednesday to follow up on rash.
[2025-07-30 14:01] VITALS: BP 142/76; PULSE 74; RESP 13; TEMP 36.3; O2SAT 99; BMI 25.6
--- OUTSIDE RECORDS SUMMARY | 2025-07-30 18:31 | XMS_ITS | Patient Health Record ---
Author Organization [facility] Address [address] [place] [address] Care Team Providers Care Reordering Clerk Name Role Phone Tono Collado MD Primary Care Provider Unavailab Christiano Duffy Unavailable [phone] Reason For Referral No Information Medications Medication [...] Status W/U Status Risk Notes Problem Bursitis (85654343) Bursitis (727.3) Active confirmed Problem Myositis (74728090) Myositis (729.1) Active confirmed Problem Pain in limb (70224152) Pain in Limb (729.5) Active confirmed Problem Plantar fasciitis (531129007) Plantar Fasciitis (728.71) Active confirmed Problem Calcaneal spur (25367611) Calcaneal spur (726.73) Active confirmed Plan Of Treatment No Information Insurance Providers Payer Name Payer Address Payer Phone Subscriber Number Group Number Insured Name Patient Relationship to Insured Coverage Start Date Coverage End Date Medicare [facility] [employer] [address] [place] [phone] [id number] August Gamino Self - patient is the insured [employer] [address] [place] [address] [phone] [id number] 7 August Gamino Self - patient is the insured Medical (General) History Medical History History ICD Code Gout high blood pressure measles chicken pox Surgical History Surgery Date(Month/Year) Bone Spurs cataract removal lasik
--- OUTSIDE RECORDS SUMMARY | 2025-07-30 18:31 | XMS_ITS | Clinical Summary ---
Author Organization [facility] Address [address] [place] [address] Phone Care Team Providers Care Employment Law Attorney Name Role Phone Brianna Pandya Primary Care [...] disease invo lving coronary bypass graft of [place] heart without angina pectoris 10/08/2021 Overview (07/25/2024): [...] his dietary fat intake. Paroxysmal atrial fibrillation ([facility]/HCC V24, [facility] /HCC V28) 10/08/2021 Overview (07/25/2024): Last Assessment & Plan: Denies perception of recurrence of arrhythmia. Continues to be anticoagulated on Eliquis for stroke reduction. His [id number] score is 3 for age greater than [...] Type Department Care Team Description 05/02/2025 Telephone [facility] [address] [place] [address] Gigi Ferrara MD from Last [...] Recently Relevant to Health Maintenance Insurance MEDICARE [facility] Care Teams Employment Law Attorney Relationship Specialty Start Date End Date Brianna Pandya FNP [address] [place] [address] [place] [address] PCP - General Nurse Practitioner 03/01/25
== END 2025-07-30 15:12 | disposition home or self-care (01) ==
LOC: HO.HMCFM 13:42
PROVIDERS: PCP Nurse Practitioner Family; Visit Provider Nurse Practitioner Family
DX: Z71.2 Person consulting for explanation of examination or test findings (principal); R93.3 Abnormal findings on diagnostic imaging of other parts of digestive tract; R63.4 Abnormal weight loss; M25.311 Other instability, right shoulder; M25.511 Pain in right shoulder; R21 Rash and other nonspecific skin eruption; R68.81 Early satiety; G47.00 Insomnia, unspecified

== ENCOUNTER → 2025-07-30 13:41 | Outpatient (BNVA) | payer MEDICARE, SELFPAY | PROVIDERS: PCP Nurse Practitioner Family; Visit Provider Nurse Practitioner Family | DX: R93.3 Abnormal findings on diagnostic imaging of other parts of digestive tract (principal); R63.4 Abnormal weight loss; M25.311 Other instability, right shoulder; M25.511 Pain in right shoulder; R21 Rash and other nonspecific skin eruption; R68.81 Early satiety; G47.00 Insomnia, unspecified; Z71.2 Person consulting for explanation of examination or test findings | CPT/HCPCS: 99212 ==

== ENCOUNTER 2025-08-15 09:43 | Outpatient (REF) | payer MEDICARE, SELFPAY ==
--- NOTE | ~2025-08-15 | CT_ITS ---
EXAMINATION: CT ABDOMEN PELVIS WITH IV CONTRAST HISTORY: Z87.19 - Personal history of other diseases of the digestive system COMPARISON: Comparison is made with the prior examination dated 07/02/2025. TECHNIQUE: CT scan of the abdomen and pelvis was performed following administration of 85 mL Omnipaque 350 using standard departmental protocol. Coronal and sagittal reformatted images were generated and reviewed. Oral contrast material was not administered at the request of the referring physician. This CT exam was performed with one or more of the following dose reduction techniques: automated exposure control, adjustment of the mA and/or kV according to patient size, use of iterative reconstruction technique. DLP: 380 mGy-cm FINDINGS: LOWER CHEST: The visualized lung bases are clear. There is no pleural effusion. CARDIOVASCULATURE: The heart is normal in size. There is no pericardial effusion. LIVER: The liver is normal in size and contour. There are subcentimeter hypodense foci in the liver which are too small to accurately characterize. The hepatic and portal veins are patent. GALLBLADDER / BILE DUCTS: There is cholelithiasis. There is no intra or extrahepatic biliary ductal dilatation. SPLEEN: The spleen is normal in size. No focal splenic lesion is identified. PANCREAS: There are calcifications in the pancreatic head. There is a 2.4 cm cystic structure in the pancreatic neck. The pancreatic duct is normal in caliber. ADRENAL GLANDS: Within normal limits. KIDNEYS/RETROPERITONEUM: No renal calculi are identified. There is no hydronephrosis. No renal masses are identified. LYMPH NODES: No abdominal or pelvic lymphadenopathy. VASCULATURE: The abdominal aorta demonstrates atherosclerotic calcification, but is normal in caliber. MESENTERY/PERITONEUM: No free fluid. No masses. There is no free intraperitoneal gas. STOMACH: The stomach is collapsed, limiting evaluation. SMALL BOWEL: The small bowel is normal in caliber. COLON: There is diverticulosis of the sigmoid colon. Again seen is a gas and stool filled structure measuring 5.1 x 6.4 x 1.5 cm demonstrating a connection to the sigmoid colon, consistent with a giant sigmoid diverticulum. This is adherent to the bladder dome as seen previously. There is no significant pericolonic soft tissue stranding to suggest acute diverticulitis. APPENDIX: Normal. URINARY BLADDER/PELVIC ORGANS: The urinary bladder is partially collapsed, but demonstrates wall thickening at the dome. There are calcifications of the prostate. BONES / SOFT TISSUES: No suspicious bony or soft tissue abnormalities. CT/CT abdomen pelvis w IV con IMPRESSION: 1. Findings consistent with a 5.1 x 6.4 x 1.5 cm giant sigmoid diverticulum adherent to the bladder dome. There is associated wall thickening of the bladder dome. 2. 2.4 cm cystic structure in the pancreatic neck. Further evaluation with MRI of the pancreas without and with contrast should be considered. 3. Cholelithiasis. Electronically signed by: Roger Jones MD 08/15/2025 12:29 PM EST
[2025-08-15 10:49] LABS: Anion Gap 11 (12-20); Blood Urea Nitrogen 22 mg/dL (9-16); Calcium 9.5 mg/dL (8.4-10.2); Carbon Dioxide 28 mmol/L (22-29); Chloride 112 mmol/L (96-108); Estimated Glomerular Filt Rate 57; Potassium 4.2 mmol/L (3.3-5.1); Sodium 147 mmol/L (135-145)
[2025-08-15] MEDS: iohexoL 350 MG/ML 100 ML INFUS..BTL 85 ML IV (12:08)
== END 2025-08-15 09:44 | disposition home or self-care (01) ==
LOC: HO.CT 09:43
PROVIDERS: PCP Nurse Practitioner Family; Visit Provider Internal Medicine
DX: E11.9 Type 2 diabetes mellitus without complications (principal); Z87.19 Personal history of other diseases of the digestive system
CPT/HCPCS: 36415; 74177; 80048; Q9967

== ENCOUNTER → 2025-08-15 10:10 | Outpatient (BNV) | payer MEDICARE, SELFPAY | PROVIDERS: PCP Nurse Practitioner Family; Visit Provider Radiology Diagnostic Radiology | DX: N32.89 Other specified disorders of bladder (principal); K86.2 Cyst of pancreas | CPT/HCPCS: 74177 ==

== ENCOUNTER 2025-08-27 11:08 | Outpatient (AMB) | payer MEDICARE, SELFPAY ==
--- NOTE | 2025-08-27 11:14 | MHC.OFFVIS ---
Vital Signs 08/27/25 11:19 Height 5 ft 11 in Weight 183 lb BMI 25.5 BP 140/72 H Blood Pressure Location Rt brachial Position Sitting Pulse 72 Intake Visit Reasons: Discuss Abd CT~ 08-15-25 Intake Note: Patient referred by Dr. Cui to discuss Abd/pelvis Ct-Scan results. (08/15/2025) Pt c/o; not sure why he is here today. Nobody has ever mentioned surgery is needed. Retail Account Manager Required: No Accompanied by: Spouse Allergies No Known Allergies Allergy (Verified 08/27/25 11:24) Medication List - Last Reconciled 08/27/25 by Uvaldo Miles MD amlodipine 5 mg PO DAILY apixaban (Eliquis) 5 mg PO BID barium sulfate 2%(w/v) (Readi-Cat 2) 450 mL PO ONCE 1 day betamethasone dipropionate 0.05% 1 appl topical BID 14 days fenofibrate nanocrystallized 145 mg PO DAILY finasteride 5 mg PO DAILY furosemide 20 mg PO DAILY losartan 100 mg PO DAILY metoprolol succinate ER 100 mg PO DAILY simvastatin 40 mg PO BEDTIME tamsulosin 0.4 mg PO DAILY HPI HPI Discuss Abd CT~ 08-15-25: Details: He is here for follow-up for a finding of a giant diverticulum in the sigmoid Dr. Cui had sent him for a CAT scan with rectal contrast. He does admit that this was not a good experience for him because of the rectal contrast He denies any abdominal pain. Denies any urinary complaints. He has good oral intake. He denies any problems with bowel movements and denies any changes with bowel habits. He says he actually feels well overall. [facility] Medical History Abnormal CT scan, gastrointestinal tract Rash and nonspecific skin eruption No pertinent family history History of cardioversion PAF (paroxysmal atrial fibrillation) CAD (coronary artery disease) Aortic stenosis Chronic renal insufficiency Gout BPH (benign prostatic hyperplasia) Elevated cholesterol HTN (hypertension) Surgical History Hx of aortic valve replacement Hx of CABG Hx of cataract extraction Hx of elbow surgery History of open heart surgery Hx of colonoscopy (~2021) Social History Household Members: Spouse Household Members Other:: - healthy Both parents involved: No Caregiver staying overnight: No Housing: House Are you a primary home care consultant to a significant other at home: No Do you presently have visiting nurse or other home services: No 75 years or older and lives alone: No Alcohol intake: current Alcohol intake frequency: a few times a month Patient Tobacco Use Status: Never used Tobacco e-Cigarette/Vaping Use: Never Used Second Hand Smoke Exposure: No Advance Directives Date on File: 04/18/19 service: No Current occupational status: retired Current occupation: left handed Current occupational exposures/hazards: No Cognitive needs: No Hearing needs: No Vision needs: Yes (reading glasses) Review of Systems Const Denies chills and Denies fever(s) Card Denies chest pain, Denies dyspnea and Denies dyspnea on exertion Resp Denies cough, Denies dyspnea and Denies dyspnea on exertion GI Denies hematochezia and Denies change in bowel habits Denies hematuria and Denies difficulty urinating Musc Denies back pain and Denies limited range of motion Neuro Denies focal weakness and Denies convulsions Psych Denies depression and Denies mood swings Physical Exam Vital Signs: Last Vital Signs Pulse 72 08/27/25 11:19 BP 140/72 H 08/27/25 11:19 BMI result Body Mass Index 25.5 Const General: comfortable and no acute distress Resp Effort & Inspection: normal respiratory effort Cardio Rate: regular rate GI Palpation (GI): Soft to palpation, not firm, nontender and no guarding Assessment & Plan Assessment & Plan (1) Diverticulosis of colon: Comment: Diverticulosis/diverticulitis discuss Maintain high-fiber Code(s): K57.30 - Diverticulosis of large intestine without perforation or abscess without bleeding Category: Medical Plan: He has follow up CAT scan shows a 6.4 cm giant sigmoid diverticulum that is adherent to the bladder dome. However, he does not present with any urinary complaints. He said he does not have any dysuria, hematuria, nor thickened areola or pneumaturia. Denies any abdominal pain or any GI complaints He had explained to him the risk of developing colovesical fistula because of the diet diverticulum. Furthermore, I also told him about pain, inflammation and infection from this giant diverticulum. He says that he would like really does not have any complaints currently. He feels well overall and stated that he would like to avoid any surgical intervention as much as possible especially with the colon resection. He understands the risks of the diverticulum as stated above I will see him again in the office in about 1 month to see how is doing . I told him that I would like to see him in the office for close monitoring His was with him during the visit. I advised him to continue with a high-fiber diet Coding Level of Care Code Est Pt Level 3 (34392) Diagnoses Diverticulosis of colon K57.30
[2025-08-27 11:19] VITALS: BP 140/72; PULSE 72; BMI 25.5
--- OUTSIDE RECORDS SUMMARY | 2025-08-27 14:10 | XMS_ITS | Clinical Summary ---
Author Organization [facility] Address [address] [place] [address] Phone Care Team Providers Care Division Order Technician Name Role Phone Brianna Pandya Primary [...] disease invo lving coronary bypass graft of [place] heart without angina pectoris 10/08/2021 Overview [...] anticoagulated on Eliquis for stroke reduction. His [id number] score is 3 for age greater than [...] current dose of metoprolol succinate 100 mg. Social History Tobacco Use Types Packs/Day Years Used Date Smoking Tobacco: Former Smokeless Tobacco: Never Alcohol Use Standard Drinks/Week Comments Yes 0 (1 standard drink = 0.6 oz pur e alcohol) Sex and Gender Information Value Date Recorded Sex Assigned at Not on file Legal Sex Male 5:31 AM EST Gender Identity Not on file Sexual Orientation Not on file Last Filed Vital Signs Vital Sign Reading [...] Zoster Vaccines Completed 12/04/2020, 12/0 09/2019, 05/21/2015 HIB Vaccines Aged Out No [...] mg/dL Blood Venous blood specimen / Unknown [facility] Provider LAB BLOOD ORDERABLES Libby l Result from Last 3 Months or Most Recently Relevant to Health Maintenance Insurance MEDICARE [facility] Care Teams Division Order Technician Relationship Specialty Start Date End Date Brianna aPndya FNP [address] [place] [address] [place] [address] PCP - General Nurse Practitioner 03/01/25
--- OUTSIDE RECORDS SUMMARY | 2025-08-27 14:10 | XMS_ITS | Patient Health Record ---
Author Organization [facility] Address [address] [place] [address] Care Team Providers Care Global Director Air And Climate Change Name Role Phone Tono Collado MD Primary Care Provider Unavailab Christiano Duffy Unavailable [phone] Reason For Referral No Information Medications Medication [...] Status W/U Status Risk Notes Problem Bursitis (28450891) Bursitis (727.3) Active confirmed Problem Myositis (15243946) Myositis (729.1) Active confirmed Problem Pain in limb (38895855) Pain in Limb (729.5) Active confirmed Problem Plantar fasciitis (372769835) Plantar Fasciitis (728.71) Active confirmed Problem Calcaneal spur (21539474) Calcaneal spur (726.73) Active confirmed Plan Of Treatment No Information Insurance Providers Payer Name Payer Address Payer Phone Subscriber Number Group Number Insured Name Patient Relationship to Insured Coverage Start Date Coverage End Date Medicare National [facility] [employer] [address] [place] [phone] [id number] August Gamino Self - patient is the insured [employer] [address] [place] [address] [id number] 7 August Gamino Self - patient is the insured Medical (General) History Medical History History ICD Code Gout high blood pressure measles chicken pox Surgical History Surgery Date(Month/Year) Bone Spurs cataract removal lasik
== END 2025-08-27 11:46 | disposition home or self-care (01) ==
LOC: HO.HGS 11:09
PROVIDERS: PCP Nurse Practitioner Family; Visit Provider Surgery
DX: K57.30 Diverticulosis of large intestine without perforation or abscess without bleeding (principal)
CPT/HCPCS: 99213

== ENCOUNTER → 2025-08-27 11:08 | Outpatient (BNVA) | payer MEDICARE, SELFPAY | PROVIDERS: PCP Nurse Practitioner Family; Visit Provider Surgery | DX: K57.30 Diverticulosis of large intestine without perforation or abscess without bleeding (principal) | CPT/HCPCS: 99212 ==

== ENCOUNTER 2025-09-05 13:35 | Outpatient (AMB) | payer MEDICARE, SELFPAY ==
[2025-09-05 13:48] VITALS: BP 102/58; PULSE 83; O2SAT 96; BMI 24.8
--- NOTE | 2025-09-05 13:48 | A.OFFPC_ITS ---
Vital Signs 09/05/25 13:48 Height 5 ft 11 in Weight 177 lb 8 oz BMI 24.8 BP 102/58 L Blood Pressure Location Lt brachial Position Sitting Pulse 83 Pulse Source Pulse Oximeter Pulse Oximetry (%) 96 Oxygen Delivery Method Room Air Intake Visit Reasons: MRI results Allergies No Known Allergies Allergy (Verified 09/05/25 14:42) Medication List - Last Reconciled 09/05/25 by Brianna Pandya, [facility]- amlodipine 5 mg PO DAILY apixaban (Eliquis) 5 mg PO BID barium sulfate 2%(w/v) (Readi-Cat 2) 450 mL PO ONCE 1 day betamethasone dipropionate 0.05% 1 appl topical BID 14 days fenofibrate nanocrystallized 145 mg PO DAILY finasteride 5 mg PO DAILY furosemide 20 mg PO DAILY losartan 100 mg PO DAILY metoprolol succinate ER 100 mg PO DAILY simvastatin 40 mg PO BEDTIME tamsulosin 0.4 mg PO DAILY Tobacco use date assessed: 07/30/25 Dental Screening Dental Screen Date: 07/30/25 HPI HPI Comments History of Present Illness Details 'Mahesh' 85 y/o M with CAD, HTN, severe aortic va lve stenosis s/p bioprostethic AVR, PAF on eliquis, HLD, CHF (echo 09/202324 Grade 2 diastolic dysfunction EF 55-60%), multiple falls, BPH with urinary retention, gout, DM2, anemia s/p CABG TYLER to the LAD, SVG, hemorrhoidectomy, bilat cataract surgery Fhx: Mom 64, Dad 62, 1 sister, 3 children (2 girls 1 boy) Social: ( Etta), 2 dtrs Michelle and Alesha Testin02/13/25 Carotid US Bilat: minimal athe rosclerotic plaque , < 50% stenosis Echo ordered and pending Stress test 08/2024 [facility] Health Maintenance Colon 2021 Dr Dunlap repeat 3-5 years Flu 06/29/25 Specialists: [facility] - visit note from 02/13/25 reviewed. Derm ? malignancy on back Taylor Quinonez @ [facility], [address] [facility] annually [facility] [place] 07/2024, visit q 6 months History of Present Illness The patient is an 85 year old male presenting for follow-up on CT scan results. Pancreatic Cyst: - A CT scan on 08/15 revealed a 2.4 cm c ystic structure in the pancreatic neck with calcifications in the pancreatic head. - This finding was new, as a CT scan in June of the previous year showed an unremarkable pancreas, and an unenhanced CT on 07/27 also showed an unremarkable pancreas. - The patient's pancreatic labs (amylase and lipase) were normal on June 29. - Associated symptoms include feeling fu ll early, decreased appetite, and weight loss. Giant Colonic Diverticulum: - The patient was found to have a giant diverticulum on a recent CT scan. - He was followed by Dr. Miles for th is finding, which carries a high risk for surgical need but is not cancerous. - The patient now reports pain in his le ft lower abdomen which he did not have previously, which is attributed to the diverticulum. Chronic Pruritus: - The patient has a history of intolerab le body itching, which can be severe. - He has seen a workers compensation claims examiner and has tr ied treatments, including prednisone, without relief. - The cause of the itching remains unkno wn. Review of Systems - Constitutional: Reports unintentional weight loss, decreased appetite, early satiety, weakness, and feeling weak. - Neurological: Reports feeling lighthea ded and dizzy today. - Gastrointestinal: Reports early satiet y. Denies abdominal pain but notes pain in the lower abdomen attributed to his diverticulum. - Dermatologic: Reports intolerable, chr onic body itching, including on the back and in his hair. The skin is not bleeding or ulcerating. - Musculoskeletal: Reports shoulder pain . Physical Exam General: Well developed, well nourished, in no acute distress. Appears stated age. Accompanied by , Etta Head: Normocephalic, atraumatic. Eyes: Pupils are equal, round and reactive to light and accommodation. Conjunctivae are clear. Scleras nonicteric Lungs: Clear to auscultation bilaterally. No rales, rhonchi or wheeze noted. G ood air flow in all valdez. Heart: Regular rate and rhythm. 2/6 murmur, No click, rubs or gallops are noted. Abdomen: Bowel sounds present in all quadrants. The abdomen is soft, nontender, with no masses or organomegaly noted. No hernias are noted. However, patient reports feeling full early, decreased appetite, and weight loss. There is a 2.4 cm cystic structure in the pancreatic neck. Pulses: Peripheral pulses are equal and palpable bilaterally. Blood pressure recorded at 102/58 which is lower than his baseline Extremities: No clubbing, cyanosis nor edema is noted. Skin: Pale Psych: Mood and affect appropriate. Patient reports feeling lightheaded and weak. Results - CT Scan (08/15): Revealed calcificatio ns in the pancreatic head and a 2.4 cm cystic structure in the pancreatic neck. - CT Scan (07/27): Unenhanced study show ed an unremarkable pancreas. - CT Scan (Prior, June): Showed an un remarkable pancreas. - Labs (06/29): Amylase and lipase were normal. Medical Decision Making The patient is an 85-year-old male presenting for follow-up on CT scan results. A recent contrast-enhanced CT scan from 08/15 revealed a new 2.4 cm cystic structure in the neck of the pancreas, which was not visible on a prior unenhanced scan from 07/27 or an earlier scan from June. This finding is concerning in the context of his reported symptoms of early satiety, decreased appetite, and significant weight loss. While a pancreatic cyst can be a benign finding, the possibility of malignancy must be excluded. To further characterize this lesion, a stat MRI of the abdomen with IV contrast has been ordered. The patient also has a known giant colonic diverticulum, which likely explains his new-onset lower abdominal pain, but is a separate issue from the pancreatic finding. His chronic, refractory pruritus is also noted; further investigation for this will be held pending the MRI results, as an intra- abdominal process could be the cause. Labs will be drawn today. Plan 1. Pancreatic Cyst - The patient presents with a new 2.4 cm pancreatic cyst found on CT scan, along with concerning symptoms of early satiety, decreased appetite, and weight loss. - To further characterize the lesion and rule out malignancy, a stat MRI of the abdomen with IV contrast is ordered. - Repeat labs will be obtained today. - A follow-up appointment will be schedu led to discuss the MRI results. 2. Giant Colonic Diverticulum - The patient has a known giant divertic ulum for which he has been seen by Dr. Miles. - His new lower abdominal pain is attrib uted to this finding. - No new plan at this time, as the focus is on the pancreatic lesion. 3. Chronic Pruritus - The etiology of the patient's severe, chronic itching is unknown. - Further investigation will be paused u ntil the abdominal MRI results are available, as an internal process could be a contributing factor. - The patient is advised to keep his [facility] dermatology appointment. Patient Instructions - An urgent MRI of your abdomen has been ordered to look more closely at the cyst on your pancreas. - Please check with the front desk agent staff about the status of the MRI order so you will know when it is scheduled. - You need to have blood tests drawn at the lab before you leave today. - We will schedule a follow-up appointme nt to go over the MRI results once the scan is completed. - Please keep your dermatology appointme nt that you have scheduled. Consent Patient was informed and verbally consented to the use of an ambient scribe for clinic note documentation during this visit. Total time spent caring for the patient today was 30 minutes. This includes time spent before the visit reviewing the chart, time spent during the visit, and time spent after the visit on documentation, reviewing laboratory results, diagnostic imaging, medications, performing a medically necessary evaluation, counseling on diagnoses, care coordination, ordering appropriate tests, ordering appropriate medications, review of tests performed by other providers, reporting test results with the patient, communication with other healthcare providers. [facility] Medical History Abnormal CT scan, gastrointestinal tract Rash and nonspecific skin eruption No pertinent family history History of cardioversion PAF (paroxysmal atrial fibrillation) CAD (coronary artery disease) Aortic stenosis Chronic renal insufficiency Gout BPH (benign prostatic hyperplasia) Elevated cholesterol HTN (hypertension) Surgical History Hx of aortic valve replacement Hx of CABG Hx of cataract extraction Hx of elbow surgery History of open heart surgery Hx of colonoscopy (~2021) Social History Household Members: Spouse Household Members Other:: - healthy Both parents involved: No Caregiver staying overnight: No Housing: House Are you a primary adult care provider to a significant other at home: No Do you presently have visiting nurse or other home services: No 75 years or older and lives alone: No Alcohol intake: current Alcohol intake frequency: a few times a month Patient Tobacco Use Status: Never used Tobacco e-Cigarette/Vaping Use: Never Used Second Hand Smoke Exposure: No Advance Directives Date on File: 04/18/19 service: No Current occupational status: retired Current occupation: left handed Current occupational exposures/hazards: No Cognitive needs: No Hearing needs: No Vision needs: Yes (reading glasses) Questionnaire Thrive Questionnaire Date Thrive assessed: 03/21/25 JUANITA-7 AMB Questionnaire JUANITA-7 Date JUANITA - 7 assessed: 07/20/25 Source: Developed by Drs. Roger Oates, Nayana Quinones, Charly Lerner and colleagues, with an educational david from [employer]. Physical exam (Primary Care) Vital Signs: Last Vital Signs Pulse 83 09/05/25 13:48 BP 102/58 L 09/05/25 13:48 Pulse Ox 96 09/05/25 13:48 Tobacco/Smoking Status: Tobacco use Status Tobacco use date assessed 07/30/25 09/05/25 13:50 Patient Tobacco Use Status Never used Tobacco 09/05/25 13:50 Tobacco use type 07/24/25 10:17 e-Cigarette/Vaping Use Never Used 09/05/25 13:50 Thrive Assessment: Date of Thrive Assessment Date Thrive assessed 03/21/25 09/05/25 13:50 Coding Level of Care Code Est Pt Level 4 (95599) Add On Problem Visit Only Diagnoses Pancreas cyst K86.2 Early satiety R68.81 Weight loss R63.4 Assessment & Plan Assessment & Plan (1) Pancreas cyst: Code(s): K86.2 - Cyst of pancreas Category: Medical (2) Early satiety: Code(s): R68.81 - Early satiety Category: Medical (3) Weight loss: Code(s): R63.4 - Abnormal weight loss Category: Medical Plan . Orders: Orders Complete Blood Count Man Dif Today K86.2 - Cyst of pancreas Carbohydrate Antigen 19-9 Today K86.2 - Cyst of pancreas Amylase Today K86.2 - Cyst of pancreas Lipase Today K86.2 - Cyst of pancreas
--- OUTSIDE RECORDS SUMMARY | 2025-09-05 14:59 | XMS_ITS | Patient Health Record ---
Author Organization [facility] Address [address] [place] [address] Care Team Providers Care Director Speech And Hearing Name Role Phone Tono Collado MD Primary Care Provider Unavailab Christiano Duffy Unavailable [phone] Reason For Referral No Information Medications Medication [...] Status W/U Status Risk Notes Problem Bursitis (73437683) Bursitis (727.3) Active confirmed Problem Myositis (92517711) Myositis (729.1) Active confirmed Problem Pain in limb (61139480) Pain in Limb (729.5) Active confirmed Problem Plantar fasciitis (119711103) Plantar Fasciitis (728.71) Active confirmed Problem Calcaneal spur (56462683) Calcaneal spur (726.73) Active confirmed Plan Of Treatment No Information Insurance Providers Payer Name Payer Address Payer Phone Subscriber Number Group Number Insured Name Patient Relationship to Insured Coverage Start Date Coverage End Date Medicare [facility] [employer] [address] [place] [phone] [phone] [id number] August Gamino Self - patient is the insured [employer] [address] [place] [address] [id number] August Gamino Self - patient is the insured Medical (General) History Medical History History ICD Code Gout high blood pressure measles chicken pox Surgical History Surgery Date(Month/Year) Bone Spurs cataract removal lasik
--- OUTSIDE RECORDS SUMMARY | 2025-09-05 14:59 | XMS_ITS | Clinical Summary ---
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 His [id number] score is 3 for age greater than [...] mg/dL Blood Venous blood specimen / Unknown [facility] Provider LAB BLOOD ORDERABLES Libby l Result from Last 3 Months or Most Recently Relevant to Health Maintenance Insurance [facility]ICARE [facility] Care Teams Public Speaking Coach Relationship Specialty Start Date End Date Brianna Pandya FNP [address] [place] [address] [place] [address] PCP - General Nurse Practitioner 03/01/25
== END 2025-09-05 14:21 | disposition home or self-care (01) ==
LOC: HO.HMCFM 13:35
PROVIDERS: PCP Nurse Practitioner Family; Visit Provider Nurse Practitioner Family
DX: K86.2 Cyst of pancreas (principal); R68.81 Early satiety; R63.4 Abnormal weight loss

== ENCOUNTER 2025-09-05 13:35 | Outpatient (REF) | payer MEDICARE, SELFPAY ==
[2025-09-05 16:38] LABS: Baso%MD 0.5 %; Eos%MD 3.1 %; Hematocrit 34.1 % (42.0-52.0); Hemoglobin 10.6 g/dl (14.0-18.0); IG%MD 0.3 %; Lymph%MD 17.5 %; Mean Corpuscular HGB Conc 31.1 g/dl (31.0-36.0); Mean Corpuscular Hemoglobin 26.8 pg (27.0-33.0); Mean Corpuscular Volume 86.1 fL (80.0-98.0); Mono%MD 8.7 %; NRBC Abs Auto 0.000 X10*3/uL (0.0-0.012); NRBC Pct Auto 0.0 /100WBC (0.0-0.2); Neut%MD 69.9 %; Platelet Count 281 X10*3/uL (160-400); Red Blood Count 3.96 X10*6/uL (4.60-5.80); White Blood Count 9.2 X10*3/uL (4.8-10.8)
[2025-09-05 17:39] LABS: Amylase 47 U/L (28-100); Lipase 17 U/L (8-78)
[2025-09-05 22:37] LABS: Basophils Abs Manual 0.1 X10*3/uL (0.0-0.2); Basophils Percent Manual 1 % (0-2); Eosinophils Absolute Manual 0.2 X10*3/uL (0.0-0.4); Eosinophils Percent Manual 2 % (0-4); Lymphocytes Absolute Manual 1.4 X10*3/uL (1.2-4.9); Lymphocytes Percent Manual 15 % (20-40); Monocytes Absolute Manual 0.6 X10*3/uL (0.1-1.2); Monocytes Percent Manual 6 % (2-11); Neutrophils Percent Manual 76 % (45-73)
[2025-09-05 22:38] LABS: Band Neutrophils Percent 0 % (3-5); Neutrophils Absolute Manual 7.0 X10*3/uL (2.0-8.3)
[2025-09-05 22:39] LABS: RBC Morphology NORMAL
== END 2025-09-05 13:36 | disposition home or self-care (01) ==
LOC: HO.WFDLDS 13:35
PROVIDERS: PCP Nurse Practitioner Family; Visit Provider Nurse Practitioner Family
DX: K86.2 Cyst of pancreas (principal); R68.81 Early satiety; R63.4 Abnormal weight loss
CPT/HCPCS: 36415; 82150; 83690; 85007; 85027; 86301; 99212